=== PATIENT | female | born 1930 | race Caucasian/White ===

== ENCOUNTER → 2016-09-14 | Outpatient (CLI) | payer BC ==
[~2016-09-14] MED LIST: ASPI-435 PO; CHOL1000 PO; CHOL20009 PO; CYAN100020 PO; CYAN10005 PO; LPT40 PO; PANT1TAB48 PO; PRT/20 PO; SIMV40TA2 PO; TELM80TA6 PO; TEMA15CA4 PO
[2016-09-14 09:57] LABS: ALKALINE PHOSPHATASE 94 U/L (45-117); ALT/SGPT 18 U/L (12-78); AST/SGOT 11 U/L (15-37); BLOOD UREA NITROGEN 26 mg/dl (7-18); BUN/CREATININE RATIO 25.8 (10-20); CALCIUM 9.2 mg/dl (8.5-10.1); CARBON DIOXIDE 29 mmol/L (21-32); CHLORIDE 104 mmol/L (98-107); CHOLESTEROL 202 mg/dl (0-200); GLUCOSE 92 mg/dl (70-99); HDL CHOLESTEROL 50 mg/dl; LDL CHOLESTEROL CALCULATED 125 mg/dl; POTASSIUM 4.7 mmol/L (3.5-5.1); SODIUM 139 mmol/L (136-145); TRIGLYCERIDES 137 mg/dl (0-150); VERY LOW DENSITY LIPOPROT CALC 27 mg/dl
== END | disposition home or self-care (01) ==
LOC: C.LABFOXMH 09:04
PROVIDERS: ATTEND Internal Medicine
DX: I10 Essential (primary) hypertension (principal)

== ENCOUNTER → 2016-09-28 | Outpatient (CLI) | payer BC ==
[2016-09-28 10:01] LABS: HEMATOCRIT 31.6 % (37-47); MEAN CELL VOLUME 68.7 fL (80-100); MEAN CORPUSCULAR HEMOGLOBIN 20.2 pg (25-34); MEAN CORPUSCULAR HGB CONC 29.4 g/dl (32-36); MEAN PLATELET VOLUME 11.2 fL (7.4-10.4); PLATELET COUNT 236 K/uL (130-400); WHITE BLOOD COUNT 5.06 K/uL (4.8-10.8)
[2016-09-28 11:20] LABS: LYME DISEASE AB IGM NEG (NEG)
[2016-09-28 11:23] LABS: LYME DISEASE AB IGG NEG (NEG)
== END | disposition home or self-care (01) ==
LOC: C.LABFOXMH 08:55
PROVIDERS: ATTEND Internal Medicine
DX: R41.82 Altered mental status, unspecified (principal)

== ENCOUNTER → 2016-09-30 | Outpatient (CLI) | payer BC ==
--- NOTE | 2016-09-30 12:22 | DIAGNOSTIC IMAGING REPORT ---
MRI OF THE BRAIN WITHOUT CONTRAST CLINICAL HISTORY: MEMORY LOSS COMPARISON STUDY: None. FINDINGS: Sagittal T1, axial diffusion, proton density and T2 weighted axial, coronal FLAIR, and axial T1-weighted images were acquired. No intra or extra-axial mass lesions are visualized Axial diffusion-weighted images reveal no evidence of acute or subacute infarction. There is no evidence of ventricular dilatation. Proton density T2-weighted and FLAIR images reveal scattered foci of increased T2 signal within the white matter, likely on a small vessel basis. There are no abnormal flow voids. There are foci of increased T2 signal within the right mastoid likely inflammatory. IMPRESSION: 1. No acute intracranial findings 2. No evidence of acute or subacute infarction 3. No evidence of intracranial mass 4. Scattered foci of increased T2 signal in the white matter, likely on a small vessel basis, and a finding not unexpected for age Electronically signed by: Ted Duvall M.D. 09/30/2016 12:20 PM Dictated Date/Time: 09/30/2016 12:14 PM
== END | disposition home or self-care (01) ==
LOC: C.MRI 11:01
PROVIDERS: ATTEND Internal Medicine
DX: R41.82 Altered mental status, unspecified (principal); R41.3 Other amnesia; D64.9 Anemia, unspecified

== ENCOUNTER → 2016-09-30 | Outpatient (CLI) | payer BC ==
[2016-09-30 10:03] LABS: FERRITIN 5.1 ng/ml (8.0-388.0)
== END | disposition home or self-care (01) ==
LOC: C.LABFOXMH 09:12
PROVIDERS: ATTEND Internal Medicine
DX: D64.9 Anemia, unspecified (principal)

== ENCOUNTER → 2016-11-09 | Day surgery (SDC) | payer BC ==
[2016-10-27 13:30] VITALS: Ht 165.1 cm; Wt 69.1 kg
[~2016-11-09] VITALS: Ht 165.1 cm; Wt 69.1 kg
[~2016-11-09] MED LIST changes: +LIDOCAINE HCL 2% 2 ML VIAL (20MG/ML) ONE; +PROPOFOL IV EMULSION 10 MG/ML 20 ML VIAL IV ONE; -SIMV40TA2 PO; +SODIUM CHLORIDE 0.9% 500ML 500 ML IV ONE
--- NOTE | 2016-11-09 10:08 | Endo History and Physical ---
History & Physical Date of Service: Nov 09, 2016. Chief Complaint: Screening for colon CA Referring Physician: Steve History of Present Illness 86 yo CF who presents for screening colonoscopy. Past Surgical History Hx Cardiac Surgery: No Hx Internal Defibrillator: No Hx Pacemaker: No Hx Abdominal Surgery: No Hx of Implantable Prosthesis: No Hx Cancer Surgery: No Hx Thoracic Surgery: No Hx Orthopedic: No Hx Urinary Tract Surgery: No Family History None Social History Smoking Status: Former Smoker Hx Substance Use: No Hx Alcohol Use: Yes (OCCASIONAL) Allergies Coded Allergies: NO KNOWN DRUG ALLERGIES (Verified Allergy, Unknown, ., 10/27/16) Nickel (Verified Allergy, Unknown, RASH, 10/27/16) Zinc (Verified Allergy, Unknown, RASH, 10/27/16) Current Medications Reported Home Medications Medications Dose Route/Sig Max Daily Dose Days Date Category Vitamin B-12 (Cyanocobalamin) 1,000 Mcg Tab 1,000 Mcg PO DAILY 10/27/16 Reported Vitamin D (Cholecalciferol) 2,000 Unit Tab 1 Tab PO DAILY 10/27/16 Reported Restoril (Temazepam) 15 Mg Cap 15 Mg PO HS 04/04/11 Reported Protonix (Pantoprazole Sodium) 20 Mg Tab 20 Mg PO QAM 10/01/06 Reported Micardis Hct 80MG/12.5MG (Telmisartan/Hydrochlorothiazide) Tab 1 Tab PO DAILY 10/01/06 Reported Vital Signs Weight (Kilograms): 69.09 Height (Feet): 5 Height (Inches): 5 Date Time Temp Pulse Resp B/P (MAP) Pulse Ox O2 Delivery O2 Flow Rate FiO2 11/09/16 10:01 36.3 92 20 161/70 94 Room Air Physical Exam General Appearance: WD/WN, no apparent distress Respiratory/Chest: Auscultation: breath sounds normal Cardiovascular: Heart Auscultation: RRR Abdomen: Bowel Sounds: normal Inspection & Palpation: soft, non-distended, no tenderness, guarding & rebound Assessment and Plan Assessment: 86 yo CF who presents for screening colonoscopy. Plan: Proceed with colonoscopy.
--- NOTE | 2016-11-09 10:48 | GI REPORT ---
Procedure Date: 11/09/2016 10:12 AM Procedure: Colonoscopy Indications: High risk colon cancer surveillance: Personal history of colonic polyps Medicines: Monitored Anesthesia Care Complications: No immediate complications. Estimated Blood Loss: Estimated blood loss: none. Procedure: Pre-Anesthesia Assessment: - Prior to the procedure, a History and Physical was performed, and patient medications and allergies were reviewed. The patient's tolerance of previous anesthesia was also reviewed. The risks and benefits of the procedure and the sedation options and risks were discussed with the patient. All questions were answered, and informed consent was obtained. Prior Anticoagulants: The patient has taken no previous anticoagulant or antiplatelet agents. ASA Grade Assessment: III - A patient with severe systemic disease. After reviewing the risks and benefits, the patient was deemed in satisfactory condition to undergo the procedure. After I obtained informed consent, the scope was passed under direct vision. Throughout the procedure, the patient's blood pressure, pulse, and oxygen saturations were monitored continuously. The scope was introduced through the anus and advanced to the cecum, identified by appendiceal orifice and ileocecal valve. The colonoscopy was performed without difficulty. The patient tolerated the procedure well. The quality of the bowel preparation was good. The terminal ileum, ileocecal valve, appendiceal orifice, and rectum were photographed. Findings: A 3 mm polyp was found in the ascending colon. The polyp was sessile. The polyp was removed with a cold biopsy forceps. Resection and retrieval were complete. Scattered small and large-mouthed diverticula were found in the entire colon. Non-bleeding internal hemorrhoids were found during retroflexion. The hemorrhoids were small. Impression: - One 3 mm polyp in the ascending colon, removed with a cold biopsy forceps. Resected and retrieved. - Diverticulosis in the entire examined colon. - Non-bleeding internal hemorrhoids. Recommendation: - Resume previous diet. - Continue present medications. - Repeat colonoscopy for surveillance based on pathology results. - Return to primary care physician as previously scheduled. Shahram Ochoa, 11/09/2016 10:47:36 AM This report has been signed electronically. Note Initiated On: 11/09/2016 10:12 AM I attest to the content of the Intraoperative Record and orders documented therein, exceptions below
--- NOTE | 2016-11-09 10:50 | Discharge Instructions ---
Endoscopy Patient Instructions Date / Procedure(s) Performed Nov 09, 2016. Colonoscopy Allergy Information Coded Allergies: NO KNOWN DRUG ALLERGIES (Verified Allergy, Unknown, ., 10/27/16) Nickel (Verified Allergy, Unknown, RASH, 10/27/16) Zinc (Verified Allergy, Unknown, RASH, 10/27/16) Discharge Date / Findings Nov 09, 2016. Colon polyp Diverticulosis Internal hemorrhoids Medication Instructions OK to resume all medications today as prescribed Medications Dose Route/Sig Max Daily Dose Days Date Category Vitamin B-12 (Cyanocobalamin) 1,000 Mcg Tab 1,000 Mcg PO DAILY 10/27/16 Reported Vitamin D (Cholecalciferol) 2,000 Unit Tab 1 Tab PO DAILY 10/27/16 Reported Restoril (Temazepam) 15 Mg Cap 15 Mg PO HS 04/04/11 Reported Protonix (Pantoprazole Sodium) 20 Mg Tab 20 Mg PO QAM 10/01/06 Reported Micardis Hct 80MG/12.5MG (Telmisartan/Hydrochlorothiazide) Tab 1 Tab PO DAILY 10/01/06 Reported Provider Instructions Activity Restrictions - No exercising or heavy lifting for 24 hours. - Do not drink alcohol the day of the procedure. - Do not drive a car or operate machinery until the day after the procedure. - Do not make any important decisions or sign important papers in 24 hours after the procedure. Following Day: - Return to full activity which may include returning to work/school. Diet Start your diet with liquids and light foods (jello, soup, juice, toast). Then eat your usual diet if not nauseated. Treatment For Common After Affects For mild abdominal pain, bloating, or excessive gas: - Rest - Eat lightly - Lie on right side Follow-Up Information Follow-up with Steve as scheduled Anesthesia Information What You Should Know You have had a procedure that required some medicine to reduce anxiety and discomfort. This treatment is called moderate sedation. After receiving the treatment, you may be sleepy, but you will be able to breathe on your own. The effects of the treatment may last for several hours. Follow these instructions along with Activity/Diet recommendations noted above: * Do NOT do anything where dizziness or clumsiness would be dangerous. * Rest quietly at home today, then you can be up and about tomorrow. * Have a responsible person stay with you the rest of today. * You may have had an I.V. today. If so, you may take the dressing off later today. Recommendations Call your doctor if: * Trouble breathing * Continuous vomiting for more than 24 hours * Temperature above 101 degrees * Severe abdominal pain or bloating * Pain not relieved by pain medicine ordered * There is increased drainage or redness from any incision * A large amount of rectal bleeding greater than 2-3 tablespoons. (If you had a polyp/s removed or have hemorrhoids, a small amount of blood - from the rectum is to be expected.) * You have any unanswered questions or concerns. IN THE EVENT OF A SERIOUS EMERGENCY, GO TO THE NEAREST EMERGENCY ROOM Your discharge instructions were prepared by provider Shahram Ochoa. Patient Instructions Signature Page Samantha Colbert Patient (or Guardian) Signature/Date: I have read and understand the instructions given to me by my caregivers. Caregiver/RN/Doctor Signature/Date: The above-named patient and/or guardian has received patient instructions on this date. + Original Patient Signature Page (only) stays with chart. Please make copy for patient.
--- NOTE | 2016-11-09 11:01 | Anesthesiology Progress Note ---
Anesthesia Post Op Note Date & Time Nov 09, 2016 at 11:01 Vital Signs Pain Intensity: 0 Vital Signs Past 12 Hours Date Time Temp Pulse Resp B/P (MAP) Pulse Ox O2 Delivery O2 Flow Rate FiO2 11/09/16 10:57 80 20 111/52 95 Room Air 11/09/16 10:51 75 20 94/48 94 Room Air 11/09/16 10:42 92 20 90/39 94 Room Air 11/09/16 10:01 36.3 92 20 161/70 94 Room Air Notes Mental Status: alert / awake / arousable, participated in evaluation Pt Amnestic to Procedure: Yes Nausea / Vomiting: adequately controlled Pain: adequately controlled Airway Patency, RR, SpO2: stable & adequate BP & HR: stable & adequate Hydration State: stable & adequate Anesthetic Complications: no major complications apparent
[2016-11-09 11:21] VITALS: BP 130/67; PULSE 79; O2SAT 95
== END | disposition home or self-care (01) ==
LOC: C.GI 09:33
PROVIDERS: ATTEND Internal Medicine
DX: Z12.11 Encounter for screening for malignant neoplasm of colon (principal); Z86.010 Personal history of colon polyps; D12.2 Benign neoplasm of ascending colon; K57.32 Diverticulitis of large intestine without perforation or abscess without bleeding; K64.8 Other hemorrhoids; Z87.891 Personal history of nicotine dependence; G47.33 Obstructive sleep apnea (adult) (pediatric); E78.5 Hyperlipidemia, unspecified; K21.9 Gastro-esophageal reflux disease without esophagitis

== ENCOUNTER → 2016-12-09 | Outpatient (CLI) | payer BC ==
[~2016-12-09] MED LIST changes: -LIDOCAINE HCL 2% 2 ML VIAL (20MG/ML) ONE; -PROPOFOL IV EMULSION 10 MG/ML 20 ML VIAL IV ONE; -SODIUM CHLORIDE 0.9% 500ML 500 ML IV ONE; +TELM80TA4 PO; -TELM80TA6 PO
[2016-12-09 09:12] LABS: HEMATOCRIT 40.8 % (37-47); MEAN CELL VOLUME 77.7 fL (80-100); MEAN CORPUSCULAR HEMOGLOBIN 24.2 pg (25-34); MEAN CORPUSCULAR HGB CONC 31.1 g/dl (32-36); PLATELET COUNT 182 K/uL (130-400); RED BLOOD COUNT 5.25 M/uL (4.2-5.4); WHITE BLOOD COUNT 4.94 K/uL (4.8-10.8)
== END | disposition home or self-care (01) ==
LOC: C.LABFOXMH 08:54
PROVIDERS: ATTEND Internal Medicine
DX: D64.9 Anemia, unspecified (principal)

== ENCOUNTER → 2016-12-13 | Outpatient (CLI) | payer BC | END | disposition home or self-care (01) | LOC: C.LABFOXMH 14:09 | PROVIDERS: ATTEND Nurse Practitioner Family | DX: R53.83 Other fatigue (principal) ==

== ENCOUNTER 2016-12-14 17:08 | Inpatient (IN) | payer BC, OTHER ==
[~2016-12-14] VITALS: Ht 154.9 cm; Wt 68.4 kg
[~2016-12-14 17:08] MED LIST changes: -ASPI-435 PO; -CHOL1000 PO; -CYAN100020 PO; -LPT40 PO; -PANT1TAB48 PO
--- NOTE | 2016-12-14 18:30 | DIAGNOSTIC IMAGING REPORT ---
CHEST ONE VIEW PORTABLE CLINICAL HISTORY: 86 years-old Female presenting with confusion. TECHNIQUE: Portable upright AP view of the chest was obtained. COMPARISON: 02/18/2015. FINDINGS: The patient is [place] rotated. Enlarged cardiac silhouette. Atherosclerosis of the aortic arch. A hiatal hernia is likely present. Lungs and pleural spaces clear. Osseous structures and upper abdomen normal. IMPRESSION: 1. No acute cardiopulmonary disease. 2. Cardiomegaly. Electronically signed by: Stefan Gee M.D. 12/14/2016 6:28 PM Dictated Date/Time: 12/14/2016 6:26 PM
[2016-12-14 19:09] LABS: BASO % 0.5 %; BASO ABS # 0.03 K/uL (0-0.2); HEMATOCRIT 41.3 % (37-47); IG% 0.2 %; LYMPH % 26.6 %; MEAN CELL VOLUME 75.6 fL (80-100); MEAN CORPUSCULAR HEMOGLOBIN 24.7 pg (25-34); MEAN CORPUSCULAR HGB CONC 32.7 g/dl (32-36); MONO % 6.9 %; NEUT % 62.8 %; PLATELET COUNT 196 K/uL (130-400); RED BLOOD COUNT 5.46 M/uL (4.2-5.4); WHITE BLOOD COUNT 5.64 K/uL (4.8-10.8)
--- NOTE | 2016-12-14 19:19 | DIAGNOSTIC IMAGING REPORT ---
LEFT LOWER EXTREMITY VENOUS DOPPLER CLINICAL HISTORY: Left lower extremity pain and swelling. COMPARISON STUDY: No previous studies for comparison. TECHNIQUE: Sonography of the deep venous system of the left lower extremity was performed. Compression and augmentation were evaluated. FINDINGS: The left common femoral, superficial femoral and popliteal veins were compressible. Augmentation was normal. Flow was shown within the deep calf vessels. IMPRESSION: No evidence of deep venous thrombus within the left lower extremity. Electronically signed by: Melchor Hearn M.D. 12/14/2016 7:17 PM Dictated Date/Time: 12/14/2016 7:17 PM
--- NOTE | 2016-12-14 19:31 | DIAGNOSTIC IMAGING REPORT ---
CT OF THE HEAD WITHOUT CONTRAST CLINICAL HISTORY: Confusion. COMPARISON STUDY: MRI of the brain September 30, 2016. CT DOSE: 537.48 mGy.cm TECHNIQUE: Helical axial images of the head were obtained without IV contrast. Automated exposure control was utilized for the study. FINDINGS: No acute intracranial hemorrhage, midline shift or mass effect is present. There is a 2.8 x 2.6 cm hypodensity within the right frontotemporal region shown best on axial image . There is probable loss of bang-white differentiation. There is no mass effect. Ventricular system is unremarkable for age. Mild ventricular dilatation is likely due to atrophy. The basilar cisterns are patent. There are no extra axial collections. There are no significant calvarial abnormalities. IMPRESSION: 1. No acute intracranial hemorrhage or mass effect. 2. 2.8 x 2.6 cm right frontotemporal hypodensity with loss of bang-white differentiation which suggests an acute to subacute infarct. If the clinical picture is not suggestive of infarct, an MRI could be obtained to exclude the much less likely possibility of an underlying mass. Electronically signed by: Melchor Hearn M.D. 12/14/2016 7:30 PM Dictated Date/Time: 12/14/2016 7:18 PM
[2016-12-14 19:34] LABS: BUN/CREATININE RATIO 25.5 (10-20); CALCIUM 9.2 mg/dl (8.5-10.1); CREATININE 0.93 mg/dl (0.60-1.20); MAGNESIUM 1.8 mg/dl (1.8-2.4)
[2016-12-14 19:40] LABS: ALB/GLOB RATIO 1.2 (0.9-2); THYROID STIMULATING HORMONE 0.692 uIu/ml (0.300-4.500)
[2016-12-14 19:44] LABS: COMPLETE YES
[2016-12-14] MEDS ORDERED: ASPIRIN/ALUM/MAGNES/CAL CARB 325 MG TAB PO STA (19:46)
[2016-12-14 19:59] LABS: POTASSIUM 4.4 mmol/L (3.5-5.1)
--- NOTE | 2016-12-14 20:07 | EMERGENCY ROOM VISIT NOTE ---
History Report prepared by Wilman: Juan Carlos Levin Under the Supervision of: Dr. Greta Lr D.O. First contact with patient: 17:34 Chief Complaint: SWELLING TO EXTREMITY Stated Complaint: LLE SWOLLEN, WARM, RED AND MENTAL STATUS History of Present Illness The patient is an 86 year old female who presents to the Emergency Room with complaints of constant, left leg pain beginning prior to arrival. The patient complains of a cough and cold-like symptoms. She denies fevers, chills, nausea, diarrhea, urinary symptoms, vomiting, chest pain, and shortness of breath. After reviewing the halfway records, the patient had edema and erythema to the lower left extremity and an altered mental status. The patient's vitals were normal except she was mildly tachycardic. The notes report that patient is DNR/DNI and has advance directive paperwork. They note the patient had labs ordered and urine cultures two days ago, and there were no results noted. The notes report the urine quick dip was positive, but after reviewing her medication list, she was not started on antibiotics yet. They state the patient has a history of poor short term memory. After reviewing the EMR, on 12/13 the patient's urine culture showed multiple organisms were present due to possible contamination. Source of History: patient, halfway notes Onset: prior to arrival Position: leg (left) Timing: constant Associated Symptoms: + cough, No fevers, No chills, No chest pain, No SOB, No nausea, No vomiting, No diarrhea, No urinary symptoms Review of Systems See HPI for pertinent positives & negatives. A total of 10 systems reviewed and were otherwise negative. Past Medical & Surgical Medical Problems: (1) Stroke-like symptoms Family History Patient reports no known family medical history. Social History Smoking Status: Never Smoker Alcohol Use: none Marital Status: Occupation Status: retired Current/Historical Medications Scheduled Aspirin (Aspirin 81), 81 MG PO DAILY Cholecalciferol (Vitamin D3), 2 TAB PO DAILY Cyanocobalamin (Vitamin B12), 1,000 MCG PO DAILY Pantoprazole (Protonix), 1 TAB PO DAILY Telmisartan/Hctz (Micardis Hct 80MG/12.5MG), 1 TAB PO DAILY Allergies Coded Allergies: NO KNOWN DRUG ALLERGIES (Verified Allergy, Unknown, ., 12/14/16) Nickel (Verified Allergy, Unknown, RASH, 12/14/16) Zinc (Verified Allergy, Unknown, RASH, 12/14/16) Physical Exam Vital Signs Date Time Temp Pulse Resp B/P (MAP) Pulse Ox O2 Delivery O2 Flow Rate FiO2 12/14/16 17:12 36.7 104 18 122/73 96 Room Air Physical Exam GENERAL: alert, well appearing, well nourished, no distress, non-toxic EYE EXAM: normal conjunctiva, PERRL and EOM's grossly intact OROPHARYNX: no exudate, no erythema, lips, buccal mucosa, and tongue normal and mucous membranes are moist NECK: supple, no nuchal rigidity, no adenopathy, non-tender LUNGS: Clear to auscultation. Normal chest wall mechanics HEART: no murmurs, S1 normal and S2 normal ABDOMEN: abdomen soft, non-tender, normo-active bowel sounds, no masses, no rebound or guarding. BACK: Back is symmetrical on inspection and there is no deformity, no midline tenderness, no CVA tenderness. SKIN: no rashes and no bruising UPPER EXTREMITIES: upper extremities are grossly normal. LOWER EXTREMITIES: No pitting edema. Small abrasion to the posterior aspect of left heal, normal pulses and sensory, complains of mild calf tenderness, no joint effusion, no deformity. NEURO EXAM: Normal sensorium, cranial nerves II-XII grossly intact, normal speech, no gross weakness of arms, no gross weakness of legs. Oriented to year , not month or place. Medical Decision & Procedures ER Provider Diagnostic Interpretation: Radiology results have been interpreted by the radiologist and reviewed by me. LEFT LOWER EXTREMITY VENOUS DOPPLER CLINICAL HISTORY: Left lower extremity pain and swelling. COMPARISON STUDY: No previous studies for comparison. TECHNIQUE: Sonography of the deep venous system of the left lower extremity was performed. Compression and augmentation were evaluated. FINDINGS: The left common femoral, superficial femoral and popliteal veins were compressible. Augmentation was normal. Flow was shown within the deep calf vessels. IMPRESSION: No evidence of deep venous thrombus within the left lower extremity. Electronically signed by: Melchor Hearn M.D. 12/14/2016 7:17 PM Dictated Date/Time: 12/14/2016 7:[address] OF THE HEAD WITHOUT CONTRAST CLINICAL HISTORY: Confusion. COMPARISON STUDY: MRI of the brain September 30, 2016. CT DOSE: 537.48 mGy.cm TECHNIQUE: Helical axial images of the head were obtained without IV contrast. Automated exposure control was utilized for the study. FINDINGS: No acute intracranial hemorrhage, midline shift or mass effect is present. There is a 2.8 x 2.6 cm hypodensity within the right frontotemporal region shown best on axial image of . There is probable loss of bang-white differentiation. There is no mass effect. Ventricular system is unremarkable for age. Mild ventricular dilatation is likely due to atrophy. The basilar cisterns are patent. There are no extra axial collections. There are no significant calvarial abnormalities. IMPRESSION: 1. No acute intracranial hemorrhage or mass effect. 2. 2.8 x 2.6 cm right frontotemporal hypodensity with loss of bang-white differentiation which suggests an acute to subacute infarct. If the clinical picture is not suggestive of infarct, an MRI could be obtained to exclude the much less likely possibility of an underlying mass. Electronically signed by: Melchor Hearn M.D. 12/14/2016 7:30 PM Dictated Date/Time: 12/14/2016 7:18 PM CHEST ONE VIEW PORTABLE CLINICAL HISTORY: 86 years-old Female presenting with confusion. TECHNIQUE: Portable upright AP view of the chest was obtained. COMPARISON: 02/18/2015. FINDINGS: The patient is [place] rotated. Enlarged cardiac silhouette. Atherosclerosis of the aortic arch. A hiatal hernia is likely present. Lungs and pleural spaces clear. Osseous structures and upper abdomen normal. IMPRESSION: 1. No acute cardiopulmonary disease. 2. Cardiomegaly. Electronically signed by: Stefan Gee M.D. 12/14/2016 6:28 PM Dictated Date/Time: 12/14/2016 6:26 PM Laboratory Results Test 12/14/16 18:23 12/14/16 18:48 12/14/16 21:05 Lactic Acid Level 1.0 mmol/L (0.4-2.0) Red Blood Cell Morphology Unremarkable Total Bilirubin 0.3 mg/dl (0.2-1) Aspartate Amino Transf (AST/SGOT) 17 U/L (15-37) Alanine Aminotransferase (ALT/SGPT) 16 U/L (12-78) Alkaline Phosphatase 91 U/L (45-117) Troponin I 0.019 ng/ml (0-0.045) Pro-B-Type Natriuretic Peptide 3553 pg/ml (0-1800) Total Protein 6.5 gm/dl (6.4-8.2) Albumin 3.5 gm/dl (3.4-5.0) Globulin 3.0 gm/dl (2.5-4.0) Albumin/Globulin Ratio 1.2 (0.9-2) Lipase 158 U/L (73-393) Thyroid Stimulating Hormone (TSH) 0.692 uIu/ml (0.300-4.500) Urine Color YELLOW Urine Appearance CLEAR (CLEAR) Urine pH 6.5 (4.5-7.5) Urine Specific [place] 1.019 (1.000-1.030) Urine Protein NEG (NEG) Urine Glucose (UA) NEG (NEG) Urine Ketones NEG (NEG) Urine Occult Blood NEG (NEG) Urine Nitrite NEG (NEG) Urine Bilirubin NEG (NEG) Urine Urobilinogen NEG (NEG) Urine Leukocyte Esterase NEG (NEG) Laboratory results per my review. Medications Administered Medications (Trade) Dose Ordered Sig/Ekaterina Route Start Time Stop Time Status Last Admin Dose Admin Aspirin/Aluminum/ Magnesium/Ca Carb (Ascriptin Tab) 325 mg NOW STAT PO 12/14/16 19:46 12/14/16 19:48 DC 12/14/16 20:03 325 MG ECG Indication: altered mental status Rate (beats per minute): 99 Rhythm: sinus rhythm Findings: LBBB, other (Prolonged QTc, normal axis) Comparison ECG Date: 01/30/2001 Change: LBBB is new from 16 years ago. ED Course 1737: The patient was evaluated in room A03. A complete history and physical exam was performed. 1945: Ordered Ascriptin Tab 325 mg PO 1947: Upon reevaluation, the patient is resting. I discussed the findings and the treatment plan with the patient. She and her family express agreement and understanding. 2001: I spoke with Dr. Campbell of the [facility] Hospitalist Service. She will be evaluated for further management. Medical Decision Differential diagnoses includes but is not limited to toxic, metabolic, infectious, traumatic, cardiac, neurologic, hematologic, psychiatric and inflammatory etiologies. Medication Reconciliation: I attest that I have personally reviewed the patient' s current medication list. Blood pressure screening: Patient was found to have a slightly elevated blood pressure due to circumstances. I do not believe that the patient requires hypertension monitoring. Patient well-appearing here despite altered mentation and complaints of an irregular extremity pain. She found to have acute CVA on neuro imaging. Labs otherwise reassuring. No evidence of infectious etiology, doubt bacteremia/ sepsis. Given patient's advanced age and risk factors more likely related to her acute CVA. Patient family made aware of all results were agreeable with plan for admission for additional evaluation and treatment. Doubt cardiac etiology, vascular etiology, no GI or complaints. Consults Time Called: 1958 Consulting Physician: Dr. Campbell, [facility] Hospitalist Returned Call: [address] Campbell of the [facility] Hospitalist Service. She will be evaluated for further management. Impression Primary Impression: CVA (cerebral vascular accident) Additional Impressions: Altered mental state Elevated brain natriuretic peptide (BNP) level Scribe Attestation The scribe's documentation has been prepared under my direction and personally reviewed by me in its entirety. I confirm that the note above accurately reflects all work, treatment, procedures, and medical decision making performed by me. Departure Information Dispostion Being Evaluated By Hospitalist Referrals Desmond Wilson M.D. (PCP) Patient Instructions My [facility] Problem Qualifiers Primary Impression: CVA (cerebral vascular accident) CVA mechanism: unspecified Qualified Codes: I63.9 - Cerebral infarction, unspecified Additional Impressions: Altered mental state Altered mental status type: disorientation Qualified Codes: R41.0 - Disorientation, unspecified
[2016-12-14 21:20] LABS: URINE APPEARANCE CLEAR (CLEAR); URINE BILIRUBIN NEG (NEG); URINE COLOR YELLOW; URINE NITRITE NEG (NEG); URINE PH 6.5 (4.5-7.5); URINE SPECIFIC GRAVITY 1.019 (1.000-1.030); UROBILINOGEN NEG (NEG)
[2016-12-14 21:31] LABS: MANUAL MICROSCOPIC REQUIRED? NO; REVIEW REQ? NO
--- NOTE | 2016-12-14 21:40 | History and Physical ---
History & Physical Date & Time of Service: Dec 14, 2016 at 21:40 Chief Complaint: Lle Swollen, Warm, Red And Mental Status Primary Care Physician: Desmond Wilson M.D. History of Present Illness Source: patient 86-year-old female with past medical history of hypertension, resident of [facility] presented to the ER with complaints of constant left leg pain. Per long term records, the patient had confusion and some speech difficulties. The patient also had some edema and erythema of the left lower extremity. The patient has dementia at baseline and is only oriented to self. She denies any chest pain, shortness of breath, palpitations. Denies any numbness tingling or weakness Family History Patient reports no known family medical history. Social History Smoking Status: Never Smoker Marital Status: Occupational Status: retired Multi-Drug Resistant Organisms History of MDRO: No Allergies Coded Allergies: NO KNOWN DRUG ALLERGIES (Verified Allergy, Unknown, ., 12/14/16) Nickel (Verified Allergy, Unknown, RASH, 12/14/16) Zinc (Verified Allergy, Unknown, RASH, 12/14/16) Home Medications Scheduled Aspirin (Aspirin 81), 81 MG PO DAILY Atorvastatin (Atorvastatin Calcium), 40 MG PO QAM Cholecalciferol (Vitamin D3), 2 TAB PO DAILY Cyanocobalamin (Vitamin B12), 1,000 MCG PO DAILY Pantoprazole (Protonix), 1 TAB PO DAILY Telmisartan/Hctz (Micardis Hct 80MG/12.5MG), 1 TAB PO DAILY Review of Systems Constitutional: No fever, No chills Eyes: No worsening of vision ENT: No hearing loss Respiratory: No cough, No sputum Cardiovascular: No chest pain Abdomen: No pain, No nausea Musculoskeletal: + problem reported (left leg pain) Genitourinary - Female: No dysuria Neurologic: No memory loss, No paralysis Psychiatric: No depression symptoms Endocrine: No fatigue Hematologic / Lymphatic: No abnormal bleeding/bruising Integumentary: No rash Physical Exam Vital Signs Date Time Temp Pulse Resp B/P (MAP) Pulse Ox O2 Delivery O2 Flow Rate FiO2 12/14/16 17:12 36.7 104 18 122/73 96 Room Air General Appearance: WD/WN, no apparent distress Head: normocephalic ENT: normal ENT inspection, hearing grossly normal Neck: supple Respiratory/Chest: chest non-tender, lungs clear, normal breath sounds, no respiratory distress, no accessory muscle use Cardiovascular: regular rate, rhythm Abdomen/GI: normal bowel sounds, non tender, soft Extremities/Musculoskelatal: normal inspection, no calf tenderness Neurologic/Psych: normal mood/affect, + pertinent finding (oriented to self only) Skin: normal color, warm/dry, no rash Diagnostics Laboratory Results Results Past 24 Hours Test 12/14/16 18:23 12/14/16 18:48 12/14/16 21:05 12/14/16 21:31 Range/Units Lactic Acid Level 1.0 0.4-2.0 mmol/L White Blood Count 5.64 4.8-10.8 K/uL Red Blood Count 5.46 4.2-5.4 M/uL Hemoglobin 13.5 12.0-16.0 g/dL Hematocrit 41.3 37-47 % Mean Corpuscular Volume 75.6 80-100 fL Mean Corpuscular Hemoglobin 24.7 25-34 pg Mean Corpuscular Hemoglobin Concent 32.7 32-36 g/dl Platelet Count 196 130-400 K/uL Neutrophils (%) (Auto) 62.8 % Lymphocytes (%) (Auto) 26.6 % Monocytes (%) (Auto) 6.9 % Eosinophils (%) (Auto) 3.0 % Basophils (%) (Auto) 0.5 % Neutrophils # (Auto) 3.54 1.4-6.5 K/uL Lymphocytes # (Auto) 1.50 1.2-3.4 K/uL Monocytes # (Auto) 0.39 0.11-0.59 K/uL Eosinophils # (Auto) 0.17 0-0.5 K/uL Basophils # (Auto) 0.03 0-0.2 K/uL RDW Standard Deviation 55.1 36.4-46.3 fL RDW Coefficient of Variation 20.5 11.5-14.5 % Immature Granulocyte % (Auto) 0.2 % Immature Granulocyte # (Auto) 0.01 0.00-0.02 K/uL Red Blood Cell Morphology Unremarkable Sodium Level 138 136-145 mmol/L Potassium Level 4.4 3.5-5.1 mmol/L Chloride Level 102 98-107 mmol/L Carbon Dioxide Level 25 21-32 mmol/L Anion Gap 11.0 3-11 mmol/L Blood Urea Nitrogen 24 7-18 mg/dl Creatinine 0.93 0.60-1.20 mg/dl Est Creatinine Clear Calc Drug Dose 40.3 ml/min Estimated GFR () 65.4 Estimated GFR (Non- 56.4 BUN/Creatinine Ratio 25.5 10-20 Random Glucose 91 70-99 mg/dl Calcium Level 9.2 8.5-10.1 mg/dl Magnesium Level 1.8 1.8-2.4 mg/dl Total Bilirubin 0.3 0.2-1 mg/dl Aspartate Amino Transf (AST/SGOT) 17 15-37 U/L Alanine Aminotransferase (ALT/SGPT) 16 12-78 U/L Alkaline Phosphatase 91 45-117 U/L Troponin I 0.019 0-0.045 ng/ml Pro-B-Type Natriuretic Peptide 3553 0-1800 pg/ml Total Protein 6.5 6.4-8.2 gm/dl Albumin 3.5 3.4-5.0 gm/dl Globulin 3.0 2.5-4.0 gm/dl Albumin/Globulin Ratio 1.2 0.9-2 Lipase 158 73-393 U/L Thyroid Stimulating Hormone (TSH) 0.692 0.300-4.500 uIu/ml Urine Color YELLOW Urine Appearance CLEAR CLEAR Urine pH 6.5 4.5-7.5 Urine Specific [place] 1.019 1.000-1.030 Urine Protein NEG NEG Urine Glucose (UA) NEG NEG Urine Ketones NEG NEG Urine Occult Blood NEG NEG Urine Nitrite NEG NEG Urine Bilirubin NEG NEG Urine Urobilinogen NEG NEG Urine Leukocyte Esterase NEG NEG Microbiology Results 12/14/16 Urine Culture, Received Pending Diagnostic Radiology [~ rep ct add3]] LEFT LOWER EXTREMITY VENOUS DOPPLER CLINICAL HISTORY: Left lower extremity pain and swelling. COMPARISON STUDY: No previous studies for comparison. TECHNIQUE: Sonography of the deep venous system of the left lower extremity was performed. Compression and augmentation were evaluated. FINDINGS: The left common femoral, superficial femoral and popliteal veins were compressible. Augmentation was normal. Flow was shown within the deep calf vessels. IMPRESSION: No evidence of deep venous thrombus within the left lower extremity. Electronically signed by: Melchor Hearn M.D. 12/14/2016 7:17 PM Dictated Date/Time: 12/14/2016 7:[address] OF THE HEAD WITHOUT CONTRAST CLINICAL HISTORY: Confusion. COMPARISON STUDY: MRI of the brain September 30, 2016. CT DOSE: 537.48 mGy.cm TECHNIQUE: Helical axial images of the head were obtained without IV contrast. Automated exposure control was utilized for the study. FINDINGS: No acute intracranial hemorrhage, midline shift or mass effect is present. There is a 2.8 x 2.6 cm hypodensity within the right frontotemporal region shown best on axial image . There is probable loss of bang-white differentiation. There is no mass effect. Ventricular system is unremarkable for age. Mild ventricular dilatation is likely due to atrophy. The basilar cisterns are patent. There are no extra axial collections. There are no significant calvarial abnormalities. IMPRESSION: 1. No acute intracranial hemorrhage or mass effect. 2. 2.8 x 2.6 cm right frontotemporal hypodensity with loss of bang-white differentiation which suggests an acute to subacute infarct. If the clinical picture is not suggestive of infarct, an MRI could be obtained to exclude the much less likely possibility of an underlying mass. Electronically signed by: Melchor Hearn M.D. 12/14/2016 7:30 PM Dictated Date/Time: 12/14/2016 7:18 PM CHEST ONE VIEW PORTABLE CLINICAL HISTORY: 86 years-old Female presenting with confusion. TECHNIQUE: Portable upright AP view of the chest was obtained. COMPARISON: 02/18/2015. FINDINGS: The patient is [place] rotated. Enlarged cardiac silhouette. Atherosclerosis of the aortic arch. A hiatal hernia is likely present. Lungs and pleural spaces clear. Osseous structures and upper abdomen normal. IMPRESSION: 1. No acute cardiopulmonary disease. 2. Cardiomegaly. Electronically signed by: Stefan Gee M.D. 12/14/2016 6:28 PM Dictated Date/Time: 12/14/2016 6:26 PM EKG Normal sinus rhythm Left bundle branch block Abnormal ECG When compared with ECG of 30-JAN-2001 15:05, Left bundle branch block is now Present Confirmed by JERI PERDOMO ([id number]) on 12/14/2016 10:44:26 PM Impression Assessment and Plan 86-year-old female with past medical history of hypertension, resident of [facility] presented to the ER with complaints of constant left leg pain. Per long term records, the patient had confusion and some speech difficulties. Stroke: - Head CT:1. No acute intracranial hemorrhage or mass effect. 2. 2.8 x 2.6 cm right frontotemporal hypodensity with loss of bang-white differentiation which suggests an acute to subacute infarct. If the clinical picture is not suggestive of infarct, an MRI could be obtained to exclude the much less likely possibility of an underlying mass. - MRI brain, MRA head, MRA neck ordered - Aspirin, statin started - Neurology consult - Hemoglobin A1c and lipid panel pending Left lower extremity pain: - Dopplers negative for DVT Hypertension: - Continue telmisartan/Hydrochlorothiazide GERD: - Continue pantoprazole DVT prophylaxis: - Heparin - SCDs Disposition: Admitted to telemetry Attending Addendum: I physically seen and examined this patient, have supervised the medical residents activities, and agree with the H&P as noted above with the following exceptions: NONE The patient is awake, well-developed and adequately nourished, alert and oriented 1 , normocephalic and atraumatic, lying in bed and in no acute distress. HEENT--PERRL, EOMI, mucous membranes and oropharynx normal. Neck--supple, no JVD or bruits, thyroid normal, trachea midline, no adenopathy. Heart--normal S1 and S2, no extra beats, no murmurs, rubs or gallops. Lungs--clear bilaterally with good air movement, no respiratory distress, no accessory muscle use. Abdomen--normal bowel sounds and soft, nontender and nondistended, no hernias or masses, no organomegaly. Extremities--no cyanosis, clubbing or edema. There are good distal pulses b/l. Dermatologic--normal skin turgor, normal color, warm and dry, no abnormal lymph nodes, no rash. Neurologic--cranial nerves II through XII grossly intact. Rheumatologic--normal range of motion, nontender, muscles and joints. Psychiatric--normal affect but confused. Assessment and Plan: 1. 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 We'll activate the CVA without TPA protocol: Order MRI of brain combo, MRA of head without contrast, MRA neck combo. Consult PT/OT/social services specialist/speech therapy. Check a fasting lipid profile, hemoglobin A1c Start aspirin and statin Neurology consult. VTE Prophylaxis VTE Risk Assessment Done? Y/N: Yes Risk Level: Moderate Resident Tracking Resident Involvement: Resident Care Provided Care Provided: Adult Hospital Medicine
[2016-12-14] MEDS ORDERED: PHARMACIST DISCHARGE MED REC CONSULT PRN ×2 (21:45)
[2016-12-14] MEDS ORDERED: POLYETHYLENE (MIRALAX) 17 GM PACK PO PRN (21:45)
[2016-12-14] MEDS ORDERED: ONDANSETRON INJ 2 MG/ML 2 ML VIAL IV PRN (21:45)
[2016-12-14] MEDS ORDERED: MAGNESIUM HYDROXIDE SUSP 30 ML UDC PO PRN (21:45)
[2016-12-14 22:30] VITALS: BP 133/83; PULSE 95; TEMP 36.6; O2SAT 93; Ht 154.9 cm; Wt 68.4 kg
[2016-12-14] MEDS: SODIUM CHLORIDE 0.9% 1000ML 1,000 ML IV SCH (23:39)
[2016-12-15] VITALS (9 sets, daily range): BP systolic 120–142; BP diastolic 74–86; PULSE 84–92; TEMP 36.3–36.9; O2SAT 91–96
[2016-12-15 06:35] LABS: BASO % 0.7 %; BASO ABS # 0.03 K/uL (0-0.2); EOS % 4.6 %; HEMATOCRIT 38.4 % (37-47); IG% 0.2 %; LYMPH % 29.4 %; LYMPH ABS # 1.28 K/uL (1.2-3.4); MEAN CELL VOLUME 77.4 fL (80-100); MEAN PLATELET VOLUME 10.8 fL (7.4-10.4); MONO % 10.3 %; NEUT % 54.8 %; PLATELET COUNT 178 K/uL (130-400); RED BLOOD COUNT 4.96 M/uL (4.2-5.4); WHITE BLOOD COUNT 4.35 K/uL (4.8-10.8)
[2016-12-15 07:05] LABS: BUN/CREATININE RATIO 22.9 (10-20); CALCIUM 8.7 mg/dl (8.5-10.1); CREATININE 0.97 mg/dl (0.60-1.20); POTASSIUM 3.4 mmol/L (3.5-5.1)
[2016-12-15 07:08] LABS: COMPLETE YES; MICROCYTOSIS PRESENT
[2016-12-15 07:14] LABS: ESTIMATED AVERAGE GLUCOSE 123 mg/dl; HA1C FLAG Normal (Normal)
[2016-12-15] MEDS ORDERED: PNEUMOCOCCAL ADMINISTRATION CHARGE ONE (08:00)
[2016-12-15] MEDS ORDERED: PNEUMOCOCCAL POLYSACCHARIDES 25 MCG/0.5 ML VIAL/SYR IM. ONE (08:00)
[2016-12-15] MEDS: ATORVASTATIN 40 MG TAB PO SCH (08:01)
[2016-12-15] MEDS: ASPIRIN 81 MG ECTAB PO SCH (08:01)
[2016-12-15] MEDS: HYDROCHLOROTHIAZIDE 25 MG TAB PO SCH (08:02)
[2016-12-15] MEDS: PANTOprazole SOD 40 MG TAB PO SCH (08:02)
[2016-12-15] MEDS: TELMISARTAN 40 MG TAB PO SCH (08:02)
[2016-12-15] MEDS ORDERED: POTASSIUM CHLORIDE 20 MEQ TABCR PO ONE (09:00)
--- NOTE | 2016-12-15 11:14 | Neurology Consultation ---
Neurology Consultation Date of Consultation: Dec 15, 2016. Attending Physician: Juan Espino D.O. Primary Care Physician: Desmond Wilson M.D. Reason for Consultation: Patient is an 86-year-old, was asked to see the request of Drs. Gonzalez and Shannan, for neurologic consultation regarding possible stroke. History of Present Illness Source: patient, family, caregiver, hospital records Patient has no history of stroke as far she or her (who is present at bedside) series are aware. She does have a history of hypertension and diabetes. According to the chart, the patient had an MRI of the brain September 30, 2016 for memory loss. This was requested by her memory care physician, Dr. Wilson and he noted a SLUM's score of 21 out of 30 points. The MRI showed some old small vessel ischemic changes and atrophy in general. Clinically the patient's , she had actually no memory deficits until one week ago. He felt that her memory is gotten markedly worse over the last week and was not like this before. He thought it would get better therefore he didn' t bring it to anyone's attention. Apparently on December 14, she was noted by staff at [facility], where they are residents, to be confused with some slurred speech. She is complaining of left lower extremity pain. She has been slower than usual. She arrived at the emergency room December 14 at 1712 hours with a temperature 36.7 , pulse 104, respiratory rate 18, blood pressure 122/73, and O2 saturation 96%. She was described in the emergency room with having a normal sensorium and no focal neurologic findings. Doppler study of the left lower extremity showed no evidence of DVT. CT scan of the head showed a possible right frontal temporal hypodensity of uncertain significance. Chest x-ray showed cardiomegaly CBC showed some mild anemia and a markedly low MCV Chem profile was unremarkable and a hemoglobin A1c was 5.9. Lipid profile showed a cholesterol of 219. Urinalysis was unremarkable. She's had no further incidences or problems after admission. There is no seizure activity noted. She remains confused. She has no complaints of pain, headache, weakness, numbness, balance problems, or incontinence. Her verifies this. Past Medical/Surgical History Medical Problems: (1) Altered mental state Status: Acute (2) CVA (cerebral vascular accident) Status: Acute (3) Elevated brain natriuretic peptide (BNP) level Status: Acute Hypertension Diabetes History of previous surgery Family History Patient's mother around age 78 and father around age 67. There is no information that they can tell me regarding any medical problems they had her why they . Social History Patient quit cigarette smoking in 1995. She does not consume much in the way of alcohol. 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 Smoking Status: Former smoker Smokeless Tobacco Use: No Alcohol Use: none Drug Use: none Marital Status: Housing Status: lives with significant other Occupation Status: retired Allergies Coded Allergies: NO KNOWN DRUG ALLERGIES (Verified Allergy, Unknown, ., 12/14/16) Nickel (Verified Allergy, Unknown, RASH, 12/14/16) Zinc (Verified Allergy, Unknown, RASH, 12/14/16) Current Inpatient Medications Current Inpatient Medications Medications (Trade) Dose Ordered Sig/Ekaterina Route Start Time Stop Time Status Last Admin Dose Admin Sodium Chloride 1,000 ml @ 80 mls/hr [id number] IV 12/14/16 22:45 01/13/17 22:44 12/14/16 23:39 80 MLS/HR Magnesium Hydroxide (Milk Of Magnesia Susp) 30 ml Q12H PRN PO 12/14/16 21:45 01/13/17 21:44 Ondansetron HCl (Zofran Inj) 4 mg Q6H PRN IV 12/14/16 21:45 01/13/17 21:44 Polyethylene (Miralax Powder Packet) 17 gm DAILY PRN PO 12/14/16 21:45 01/13/17 21:44 Atorvastatin Calcium (Lipitor Tab) 40 mg QAM PO 12/15/16 09:00 01/14/17 08:59 12/15/16 08:01 40 MG Aspirin (Ecotrin Tab) 81 mg QAM PO 12/15/16 09:00 01/14/17 08:59 12/15/16 08:01 81 MG Miscellaneous Information (Pharmacist Discharge Med Rec Consult) 1 ea UD PRN N/A 12/14/16 21:45 01/13/17 21:44 Temazepam (Restoril Cap) 15 mg HS PO 12/15/16 21:00 01/14/17 20:59 Pantoprazole Sodium (Protonix Tab) 40 mg QAM PO 12/15/16 09:00 01/14/17 08:59 12/15/16 08:02 40 MG Telmisartan (Micardis Tab) 80 mg DAILY PO 12/15/16 09:00 01/14/17 08:59 12/15/16 08:02 80 MG Hydrochlorothiazide (Hydrochlorothiazide Tab) 12.5 mg DAILY PO 12/15/16 09:00 01/14/17 08:59 12/15/16 08:02 12.5 MG Heparin Sodium (Porcine) (Heparin Sq 5000 Unit/0.5ml) 5,000 unit Q8 SQ 12/15/16 14:00 01/14/17 13:59 Review of Systems Constitutional: No weakness, No fatigue Eyes: No worsening of vision, No diplopia ENT: No hearing loss, No trouble swallowing Respiratory: No cough, No shortness of breath Cardiovascular: No chest pain, No palpitations Abdomen: No pain, No nausea Musculoskeletal: No joint pain, No muscle pain Genitourinary - Female: No dysuria, No urinary incontinence Neurologic: + memory loss, No weakness, No numbness/tingling, No vertigo, No balance problems Psychiatric: No depression symptoms, No anxiety Endocrine: No fatigue Hematologic / Lymphatic: No abnormal bleeding/bruising Integumentary: No rash Allergic / Immunologic: No hives Physical Exam Vital Signs (Past 24 Hrs): Date Time Temp Pulse Resp B/P (MAP) Pulse Ox O2 Delivery O2 Flow Rate FiO2 12/15/16 08:00 92 Room Air 12/15/16 07:41 36.4 92 20 142/84 (103) 91 Room Air 12/15/16 04:00 Room Air 12/15/16 03:30 36.6 92 18 128/76 (93) 96 Room Air 12/15/16 00:00 93 Room Air 12/14/16 22:30 36.6 95 16 133/83 93 Room Air 12/14/16 22:23 36.7 104 18 122/73 96 12/14/16 17:12 36.7 104 18 122/73 96 Room Air The patient is right-handed. The patient is awake and alert, pleasant and cooperative. Speech is without obvious motor aphasia. She does not seem to have a receptive aphasia but there may be some very mild dysarthria. Mood and affect are appropriate. Appearance and grooming are unremarkable. She has poor memory. She does not know her age, Hollow she's been in the hospital, much of anything about her past medical or social history: She is confused easily and doesn't figure out left from right with two-step commands. She cannot do simple calculations. The discs are sharp with positive venous pulsations. There are no exudates, hemorrhages, or blood vessel changes seen. Pupils are 3mm bilaterally and reactive to light. Extraocular eye muscles are intact without nystagmus. Visual acuity and visual fraga seem normal grossly to confrontation. There are no deficits to sensation of the face bilaterally. Corneal reflexes are positive bilaterally. Facial strength is normal bilaterally. Although there is a slight asymmetry at the corner of the mouth on the left does move voluntarily with smile. Hearing seems intact grossly to voice and finger rub. Palate moves well without asymmetry. There is normal sternocleidomastoid and trapezius strength bilaterally. Tongue is midline with good strength bilaterally. Neck is with full range of motion without discomfort. There are no cervical bruits. There are no cranial or ocular bruits. Heart is without murmur. Cervical, thoracic, and lumbar spine are nontender to palpation. Gait is normal. There is good are swing, turn, stance, and balance. With outstretched arms there is no drift. There are no resting, postural, or action tremors. There is no ataxia with [id number] testing. There is good facility in the hands. There are no abnormal involuntary movements noted. Motor strength is 5/5 diffusely in the arms bilaterally including deltoids, biceps, brachioradialis, wrist flexors and extensors, braille and talking books clerk, and intrinsic hand muscles. Motor strength is 5/5 diffusely in the legs bilaterally including hip flexors, quadriceps, hamstring, gastrocnemius, tibialis anterior, tibialis posterior, and peroneii muscles bilaterally. Toe extensors are normal and there is good bulk in the extensor digitorum brevis muscle bilaterally. The limbs have good tone without rigidity or spasticity, and there is no atrophy noted. Muscle bulk is normal, there is no tenderness, no myotonia noted to percussion, and no fasciculations seen. Sensory examination is intact to pin and touch throughout all four limbs. Reflexes are 1/4 in the biceps, triceps, brachioradialis, quadriceps, and Achilles tendons bilaterally. Toes are downgoing with plantar stimulation bilaterally. Peripheral pulses are present and of normal quality distally in all four limbs. There is no peripheral edema noted. Laboratory Results Past 24 Hours: 12/15/16 05:40 Red Blood Count 4.96, Mean Corpuscular Volume 77.4, Mean Corpuscular Hemoglobin 24.0, Mean Corpuscular Hemoglobin Concent 31.0, Mean Platelet Volume 10.8, Neutrophils (%) (Auto) 54.8, Lymphocytes (%) (Auto) 29.4, Monocytes (%) (Auto) 10.3, Eosinophils (%) (Auto) 4.6, Basophils (%) (Auto) 0.7, Neutrophils # (Auto ) 2.38, Lymphocytes # (Auto) 1.28, Monocytes # (Auto) 0.45, Eosinophils # (Auto ) 0.20, Basophils # (Auto) 0.03 12/15/16 05:40 Test 12/14/16 18:23 12/14/16 18:48 12/14/16 21:05 12/15/16 05:40 Lactic Acid Level 1.0 mmol/L (0.4-2.0) Red Blood Cell Morphology Unremarkable Total Bilirubin 0.3 mg/dl (0.2-1) Aspartate Amino Transf (AST/SGOT) 17 U/L (15-37) Alanine Aminotransferase (ALT/SGPT) 16 U/L (12-78) Alkaline Phosphatase 91 U/L (45-117) Troponin I 0.019 ng/ml (0-0.045) Pro-B-Type Natriuretic Peptide 3553 pg/ml (0-1800) Total Protein 6.5 gm/dl (6.4-8.2) Albumin 3.5 gm/dl (3.4-5.0) Globulin 3.0 gm/dl (2.5-4.0) Albumin/Globulin Ratio 1.2 (0.9-2) Lipase 158 U/L (73-393) Thyroid Stimulating Hormone (TSH) 0.692 uIu/ml (0.300-4.500) Urine Color YELLOW Urine Appearance CLEAR (CLEAR) Urine pH 6.5 (4.5-7.5) Urine Specific [place] 1.019 (1.000-1.030) Urine Protein NEG (NEG) Urine Glucose (UA) NEG (NEG) Urine Ketones NEG (NEG) Urine Occult Blood NEG (NEG) Urine Nitrite NEG (NEG) Urine Bilirubin NEG (NEG) Urine Urobilinogen NEG (NEG) Urine Leukocyte Esterase NEG (NEG) White Blood Count 4.35 K/uL (4.8-10.8) Red Blood Count 4.96 M/uL (4.2-5.4) Hemoglobin 11.9 g/dL (12.0-16.0) Hematocrit 38.4 % (37-47) Mean Corpuscular Volume 77.4 fL (80-100) Mean Corpuscular Hemoglobin 24.0 pg (25-34) Mean Corpuscular Hemoglobin Concent 31.0 g/dl (32-36) Platelet Count 178 K/uL (130-400) Mean Platelet Volume 10.8 fL (7.4-10.4) Neutrophils (%) (Auto) 54.8 % Lymphocytes (%) (Auto) 29.4 % Monocytes (%) (Auto) 10.3 % Eosinophils (%) (Auto) 4.6 % Basophils (%) (Auto) 0.7 % Neutrophils # (Auto) 2.38 K/uL (1.4-6.5) Lymphocytes # (Auto) 1.28 K/uL (1.2-3.4) Monocytes # (Auto) 0.45 K/uL (0.11-0.59) Eosinophils # (Auto) 0.20 K/uL (0-0.5) Basophils # (Auto) 0.03 K/uL (0-0.2) RDW Standard Deviation 56.4 fL (36.4-46.3) RDW Coefficient of Variation 20.4 % (11.5-14.5) Immature Granulocyte % (Auto) 0.2 % Immature Granulocyte # (Auto) 0.01 K/uL (0.00-0.02) Microcytosis PRESENT Anion Gap 8.0 mmol/L (3-11) Est Creatinine Clear Calc Drug Dose 38.2 ml/min Estimated GFR () 62.2 Estimated GFR (Non- 53.6 BUN/Creatinine Ratio 22.9 (10-20) Estimated Average Glucose 123 mg/dl Hemoglobin A1c 5.9 % (4.5-5.6) Calcium Level 8.7 mg/dl (8.5-10.1) Magnesium Level 1.8 mg/dl (1.8-2.4) Triglycerides Level 117 mg/dl (0-150) Cholesterol Level 219 mg/dl (0-200) HDL Cholesterol 44 mg/dl LDL Cholesterol, Calculated 152 mg/dl VLDL Cholesterol, Calculated 23 mg/dl Cholesterol/HDL Ratio 5.0 Test 12/15/16 07:01 Prothrombin Time 11.0 SECONDS (9.0-12.0) Prothromb Time International Ratio 1.0 (0.9-1.1) Impression 1. Dementia. According to the this is relatively acute and worse over the last week. I cannot entirely exclude a stroke but she has no neurologic deficits or focal neurologic signs on exam today. There is no obvious aphasia and there are no meningeal signs. I do not believe this is a delirium as much as a dementia. She had an MRI in September which showed some small vessel ischemic changes. Therefore this dementia is mixed vascular and aging. Other etiologies need to be considered. 2. Anemia with low MCV. 3. History of hypertension and diabetes. Plan 1. MRI of the brain to evaluate for acute pathology.. 2. Check Lyme antibody titers, B-12, folate 3. Increase activity as able. I will make additional admission depending on her clinical course and above test results. I spoke with Dr. Espino regarding his case including differential diagnoses and treatment options.
[2016-12-15] MEDS: SODIUM CHLORIDE 0.9% 1000ML 1,000 ML IV SCH ×2 (11:23→23:45)
[2016-12-15] MEDS ORDERED: PANT1TAB48 PO (12:43)
[2016-12-15] MEDS ORDERED: ASPI-435 PO (12:43)
[2016-12-15] MEDS ORDERED: CHOL1000 PO (12:43)
[2016-12-15] MEDS ORDERED: CYAN100020 PO (12:43)
--- NOTE | 2016-12-15 12:59 | Hospitalist Progress Note ---
Hospitalist Progress Note Date of Service Dec 15, 2016. (Wilma Madsen ., BRIANNAC) Subjective Pt evaluation today including: conversation w/ patient, conversation w/ family ( at bedside. spoke to son on phone), physical exam, chart review, lab review, review of studies, review of inpatient medication list Pain: None PO Intake: Tolerating PO diet Voiding: no voiding problems Patient reports feeling well. Per the patient and her , she began exhibiting slurred speech about one week ago. The denies any increased confusion or mental status. He also denies any facial drooping. The patient denies any weakness but does note some fatigue. She also complains of a productive cough. The patient denies fevers, chills, sweats, chest pain, palpitations, claudication, wheezing, shortness of breath, nausea, vomiting, abdominal pain, dysuria, hematuria, urinary retention, paralysis, weakness, numbness and tingling. Additional Comments: See HPI for pertinent positives and negatives. All other systems reviewed and negative. (Wilma Madsen ., REGGIE-C) Objective Vital Signs Date Time Temp Pulse Resp B/P (MAP) Pulse Ox O2 Delivery O2 Flow Rate FiO2 12/15/16 11:49 36.9 84 17 130/75 (93) 95 Room Air 12/15/16 08:00 92 Room Air 12/15/16 07:41 36.4 92 20 142/84 (103) 91 Room Air 12/15/16 04:00 Room Air 12/15/16 03:30 36.6 92 18 128/76 (93) 96 Room Air 12/15/16 00:00 93 Room Air 12/14/16 22:30 36.6 95 16 133/83 93 Room Air 12/14/16 22:23 36.7 104 18 122/73 96 12/14/16 17:12 36.7 104 18 122/73 96 Room Air (Wilma Madsen PA-C) Physical Exam Notes: General appearance: Well-developed, well-nourished, no apparent distress Head: Normocephalic, atraumatic Eyes: Normal inspection, PERRL, EOMI ENT: Normal ENT inspection, hearing grossly normal, pharynx normal Neck: Supple, no JVD, trachea midline Respiratory/Chest: +Crackles in bases bilaterally R>L. Normal breath sounds, no respiratory distress Cardiovascular: +Systolic murmur. Regular rate & rhythm, no gallop Abdomen/GI: Normal bowel sounds, non-tender, soft Extremities/Musculoskeletal: Normal inspection, no calf tenderness, no pedal edema Neurological/Psych: +Slurred speech. No pronator drift. Muscle strength 5/5 all extremities. Sensation intact. No facial droop. Alert, normal mood/affect , oriented x 3 Skin: Normal color, warm/dry, no rash (Wilma Madsen ., REGGIE-Michael) Laboratory Results Last 24 Hours Test 12/14/16 18:23 12/14/16 18:48 12/14/16 21:05 12/15/16 05:40 Lactic Acid Level 1.0 mmol/L White Blood Count 5.64 K/uL 4.35 K/uL Red Blood Count 5.46 M/uL 4.96 M/uL Hemoglobin 13.5 g/dL 11.9 g/dL Hematocrit 41.3 % 38.4 % Mean Corpuscular Volume 75.6 fL 77.4 fL Mean Corpuscular Hemoglobin 24.7 pg 24.0 pg Mean Corpuscular Hemoglobin Concent 32.7 g/dl 31.0 g/dl Platelet Count 196 K/uL 178 K/uL Neutrophils (%) (Auto) 62.8 % 54.8 % Lymphocytes (%) (Auto) 26.6 % 29.4 % Monocytes (%) (Auto) 6.9 % 10.3 % Eosinophils (%) (Auto) 3.0 % 4.6 % Basophils (%) (Auto) 0.5 % 0.7 % Neutrophils # (Auto) 3.54 K/uL 2.38 K/uL Lymphocytes # (Auto) 1.50 K/uL 1.28 K/uL Monocytes # (Auto) 0.39 K/uL 0.45 K/uL Eosinophils # (Auto) 0.17 K/uL 0.20 K/uL Basophils # (Auto) 0.03 K/uL 0.03 K/uL RDW Standard Deviation 55.1 fL 56.4 fL RDW Coefficient of Variation 20.5 % 20.4 % Immature Granulocyte % (Auto) 0.2 % 0.2 % Immature Granulocyte # (Auto) 0.01 K/uL 0.01 K/uL Red Blood Cell Morphology Unremarkable Sodium Level 138 mmol/L 138 mmol/L Potassium Level 4.4 mmol/L 3.4 mmol/L Chloride Level 102 mmol/L 105 mmol/L Carbon Dioxide Level 25 mmol/L 25 mmol/L Anion Gap 11.0 mmol/L 8.0 mmol/L Blood Urea Nitrogen 24 mg/dl 22 mg/dl Creatinine 0.93 mg/dl 0.97 mg/dl Est Creatinine Clear Calc Drug Dose 40.3 ml/min 38.2 ml/min Estimated GFR () 65.4 62.2 Estimated GFR (Non- 56.4 53.6 BUN/Creatinine Ratio 25.5 22.9 Random Glucose 91 mg/dl 97 mg/dl Calcium Level 9.2 mg/dl 8.7 mg/dl Magnesium Level 1.8 mg/dl 1.8 mg/dl Total Bilirubin 0.3 mg/dl Aspartate Amino Transf (AST/SGOT) 17 U/L Alanine Aminotransferase (ALT/SGPT) 16 U/L Alkaline Phosphatase 91 U/L Troponin I 0.019 ng/ml Pro-B-Type Natriuretic Peptide 3553 pg/ml Total Protein 6.5 gm/dl Albumin 3.5 gm/dl Globulin 3.0 gm/dl Albumin/Globulin Ratio 1.2 Lipase 158 U/L Thyroid Stimulating Hormone (TSH) 0.692 uIu/ml Urine Color YELLOW Urine Appearance CLEAR Urine pH 6.5 Urine Specific Warren 1.019 Urine Protein NEG Urine Glucose (UA) NEG Urine Ketones NEG Urine Occult Blood NEG Urine Nitrite NEG Urine Bilirubin NEG Urine Urobilinogen NEG Urine Leukocyte Esterase NEG Mean Platelet Volume 10.8 fL Microcytosis PRESENT Estimated Average Glucose 123 mg/dl Hemoglobin A1c 5.9 % Triglycerides Level 117 mg/dl Cholesterol Level 219 mg/dl HDL Cholesterol 44 mg/dl LDL Cholesterol, Calculated 152 mg/dl VLDL Cholesterol, Calculated 23 mg/dl Cholesterol/HDL Ratio 5.0 Test 12/15/16 07:01 Prothrombin Time 11.0 SECONDS Prothromb Time International Ratio 1.0 (Wilma Madsen, CECILIA) Diagnostic Results Reviewed the following studies and agree with interpretation as follows: Patient Name: SHARATH HERNANDEZ Unit Number: [id number] Dictated: 12/15/161406 Transcribed: 12/15/161406 DELMAR Printed Date/Time: [~ rep prt dt]/[~ rep prt tm] [~ rep ct labl] - [~ rep ct ivnm] [facility] [place] [place] [address] Dictated: 12/15/16 140 Transcribed: 12/15/16 140 JA Printed Date/Time: [~ rep prt dt]/[~ rep prt tm] [~ rep ct labl] - [~ rep ct ivnm] Patient: SHARATH HERNANDEZ Address1: [address] [facility] Rec: [id number] Address2: [place] Acct ID: [id number] [facility] Zip: [place] [address] Date: 1930 Sex: F Room/Bed: [facility] [place] Ref Phy: Cyndi Mitchell SC: CFernanda2T Att Phy: Juan Espino D.O. Report #: [id number] Jocelin Phy: Desmond Wilson M.D. Test: [facility] Admit Phy: Velvet Gonzalez MD Saxophone Player: MELVINA Interpreting Phy: Melchor Hearn MD Diagnosis: STROKE-LIKE SYMPTOMS Ordering Phy: Velvet Gonzalez MD Service Date: 12/15/16 Admit Date: 12/14/1706/12/17 MNE: PWRSCRIBE CONF: DICTATED BY: Melchor Hearn MD]] CC: Juan Espino D.O. [facility] Velvet Gonzalez MD Sepich, Rodney M. M.D. Endcc: [~ rep ct add3]] MRI OF THE BRAIN WITHOUT AND WITH IV CONTRAST CLINICAL HISTORY: Stroke. COMPARISON STUDY: MRI of the brain September 30, [address] December 14, 2016. TECHNIQUE: Utilizing a 1.5 Alicia magnet and dedicated coil, multiplanar, multiecho imaging of the brain was performed pre and postcontrast administration. IV administration of 7 mL of Gadavist contrast was uneventful. FINDINGS: There are multiple foci of restricted diffusion within the right frontotemporal region consistent with acute anterior right MCA territory infarcts. There is no mass effect or evidence of hemorrhagic conversion. There is no intracranial masses or pathologic enhancement on the postcontrast images are compromised by motion artifact. Ventricular dilatation is due to atrophy. White matter T2 hyperintense foci suggest moderate small vessel disease. Calvarial signal is maintained. IMPRESSION: Multiple foci of restricted diffusion within the right frontotemporal region consistent with acute anterior right MCA territory infarcts. No mass effect or evidence of hemorrhagic conversion. Electronically signed by: Melchor Hearn M.D. 12/15/2016 2:24 PM Dictated Date/Time: 12/15/2016 2:07 PM The status of this report is Signed. Draft = Not yet reviewed or approved by Radiologist. Signed = Reviewed and approved by Radiologist. <AttendingPhy>Juan Espino D.O.</AttendingPhy> <FamilyPhy>Cyndi Mitchell</FamilyPhy> <PrimaryPhy>Desmond Wilson M.D.</PrimaryPhy> <UnitNumber> [id number]</UnitNumber> <VisitNumber>[id number]</VisitNumber> <PatientName> SHARATH HERNANDEZ</PatientName> <DateOfBirth>1930</DateOfBirth> <Location> C.2T</Location> <ServiceDate>12/14/16</ServiceDate> <MNE>ESINDI</MNE> < OrderingPhy>Velvet Gonzalez MD</OrderingPhy> <OrderingPhyMNE>f rep ord dr carcamo</ OrderingPhyMNE> <DictatingPhyMNE>f rep dict dr carcamo</DictatingPhyMNE> <CCListMNE> f rep ct mne</CCListMNE> <AdmittingPhyMNE>f pt admit dr carcamo</AdmittingPhyMNE> < AttendingPhyMNE>f pt attend dr carcamo</AttendingPhyMNE> <ConsultingPhyMNE>f pt consult dr carcamo</ConsultingPhyMNE> <FamilyPhyMNE>f pt fam dr carcamo</FamilyPhyMNE> <OtherPhyMNE>f pt other dr carcamo</OtherPhyMNE> < PrimaryPhyMNE>f pt prim care dr carcamo</PrimaryPhyMNE> <ReferringPhyMNE>f pt referring dr carcamo</ReferringPhyMNE> Patient Name: SHARATH HERNANDEZ Unit Number: [id number] Dictated: 12/15/161337 Transcribed: 12/15/161342 JA Printed Date/Time: [~ rep prt dt]/[~ rep prt tm] [~ rep ct labl] - [~ rep ct ivnm] [facility] [place] [place] [address] Dictated: 12/15/161337 Transcribed: 12/15/161342 JA Printed Date/Time: [~ rep prt dt]/[~ rep prt tm] [~ rep ct labl] - [~ rep ct ivnm] Patient: SHARATH HERNANDEZ Address1: [address] [facility] Rec: [id number] Address2: [place] Acct ID: [id number] [facility] Zip: [place] [address] Date: 1930 Sex: F Room/Bed: [facility] [place] Ref Phy: Cyndi Mitchell SC: CFernanda2T Att Phy: Juan Espino D.O. Report #: [id number] Jocelin Phy: Desmond Wilson M.D. Test: [facility] Admit Phy: Velvet Gonzalez MD Saxophone Player: MELVINA Interpreting Phy: Melchor Hearn MD Diagnosis: STROKE-LIKE SYMPTOMS Ordering Phy: Velvet Gonzalez MD Service Date: 12/15/16 Admit Date: 12/14/1706/12/17 MNE: PWRSCRIBE CONF: DICTATED BY: Melchor Hearn MD]] CC: Juan Espino D.O. [facility] Velvet Gonzalez MD Sepich, Rodney M. M.D. Endcc: [~ rep ct add3]] MRA OF THE INTRACRANIAL CIRCULATION WITHOUT CONTRAST CLINICAL HISTORY: Stroke - Attention to [place] COMPARISON STUDY: MRI of the September 30, [address] December 14, 2016. TECHNIQUE: Utilizing a 1.5 Alicia magnet and 3-D gmga-nq-[id number] technique, unenhanced MRA of the intracranial circulation was obtained. 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 The left A1 segment is diminutive, on a congenital basis. There is persistence of the left posterior cerebral artery. There is no intracranial aneurysm although sensitivity for detection of small intracranial aneurysms is diminished on this exam. The intracranial portion of the right vertebral artery is diminutive, likely on a congenital basis. The left vertebral artery is dominant and patent. The MRI of the brain will be reported separately. IMPRESSION: 1. 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 2. No intracranial aneurysm. 3. persistence of the left posterior cerebral artery. Electronically signed by: Melchor Hearn M.D. 12/15/2016 2:38 PM Dictated Date/Time: 12/15/2016 1:38 PM The status of this report is Signed. Draft = Not yet reviewed or approved by Radiologist. Signed = Reviewed and approved by Radiologist. <AttendingPhy>Juan Espino D.O.</AttendingPhy> <FamilyPhy>[facility]</FamilyPhy> <PrimaryPhy>Desmond Wilson M.D.</PrimaryPhy> <UnitNumber> [id number]</UnitNumber> <VisitNumber>[id number]</VisitNumber> <PatientName> CARLOSSANJUANITAHRSHARATH Burroughs</PatientName> <DateOfBirth>1930</DateOfBirth> <Location> C.2T</Location> <ServiceDate>12/14/16</ServiceDate> <MNE>CORAZON</MNE> < OrderingPhy>Velvet Gonzalez MD</OrderingPhy> <OrderingPhyMNE>f rep ord dr carcamo</ OrderingPhyMNE> <DictatingPhyMNE>f rep dict dr carcamo</DictatingPhyMNE> <CCListMNE> f rep ct dona</CCListMNE> <AdmittingPhyMNE>f pt admit dr carcamo</AdmittingPhyMNE> < AttendingPhyMNE>f pt attend dr carcamo</AttendingPhyMNE> <ConsultingPhyMNE>f pt consult dr carcamo</ConsultingPhyMNE> <FamilyPhyMNE>f pt fam dr carcamo</FamilyPhyMNE> <OtherPhyMNE>f pt other dr carcamo</OtherPhyMNE> < PrimaryPhyMNE>f pt prim care dr carcamo</PrimaryPhyMNE> <ReferringPhyMNE>f pt referring dr carcamo</ReferringPhyMNE> Patient Name: SHARATH HERNANDEZ Unit Number: [id number] Dictated: 12/15/161401 Transcribed: 12/15/161401 PBS Printed Date/Time: [~ rep prt dt]/[~ rep prt tm] [~ rep ct labl] - [~ rep ct ivnm] [facility] Radiology Department [place] [id number] Dictated: 12/15/161401 Transcribed: 12/15/161401 PBS Printed Date/Time: [~ rep prt dt]/[~ rep prt tm] [~ rep ct labl] - [~ rep ct ivnm] Patient: SHARATH HERNANDEZ Address1: [address] [facility] Rec: [id number] Address2: [place] [facility] Acct ID: [id number] [facility] Zip: [place] [address] Date: 1930 Sex: F Room/Bed: [facility] Ref Phy: Cyndi Mitchell SC: C.2T Att Phy: Juan Espino D.O. Report #: [id number] Jocelin Phy: Desmond Wilson M.D. Test: [facility] Admit Phy: Velvet Gonzalez MD Saxophone Player: [facility] Interpreting Phy: Stefan Gee MD Diagnosis: STROKE-LIKE SYMPTOMS Ordering Phy: Velvet Gonzalez MD Service Date: 12/15/16 Admit Date: 12/14/1706/12/17 MNE: PWRSCRIBE CONF: DICTATED BY: Stefan Gee MD]] CC: Juan Espino D.O. [facility] Velvet Gonzalez MD Sepich, Rodney M. M.D. Endcc: [~ rep ct add3]] MRA NECK COMBO CLINICAL HISTORY: 86-year-old female with history of stroke one week ago, change in mental status. TECHNIQUE: MR angiography of the neck was performed before and after administration of intravenous contrast using 2-D vmna-lv-[id number] and gadolinium-enhanced MRA techniques. All measurements were calculated based on NASCET criteria. IV contrast: 7 mL of Gadavist. COMPARISON: None. FINDINGS: Innominate and left common carotid arteries have a common trunk of the aortic arch. Patent origins of the major cervical branch vessels of the aorta. Left dominant vertebral artery. No significant stenosis, occlusion, or dissection identified within the bilateral common carotid, internal carotid, or vertebral arteries. IMPRESSION: No significant stenosis, occlusion, or dissection identified within the carotid or vertebral arteries. Electronically signed by: Stefan Gee M.D. 12/15/2016 2:07 PM Dictated Date/Time: 12/15/2016 2:02 PM The status of this report is Signed. Draft = Not yet reviewed or approved by Radiologist. Signed = Reviewed and approved by Radiologist. <AttendingPhy>Juan Espino D.O.</AttendingPhy> <FamilyPhy>[facility]</FamilyPhy> <PrimaryPhy>Desmond Wilson M.D.</PrimaryPhy> <UnitNumber> [id number]</UnitNumber> <VisitNumber>[id number]</VisitNumber> <PatientName> SHARATH HERNANDEZ</PatientName> <DateOfBirth>1930</DateOfBirth> <Location> C.2T</Location> <ServiceDate>12/14/16</ServiceDate> <MNE>ESINDI</MNE> < OrderingPhy>Velvet Gonzalez MD</OrderingPhy> <OrderingPhyMNE>f rep ord dr carcamo</ OrderingPhyMNE> <DictatingPhyMNE>f rep dict dr carcamo</DictatingPhyMNE> <CCListMNE> f rep ct [facility]</CCListMNE> <AdmittingPhyMNE>f pt admit dr carcamo</AdmittingPhyMNE> < AttendingPhyMNE>f pt attend dr carcamo</AttendingPhyMNE> <ConsultingPhyMNE>f pt consult dr carcamo</ConsultingPhyMNE> <FamilyPhyMNE>f pt fam dr carcamo</FamilyPhyMNE> <OtherPhyMNE>f pt other dr carcamo</OtherPhyMNE> < PrimaryPhyMNE>f pt prim care dr carcamo</PrimaryPhyMNE> <ReferringPhyMNE>f pt referring dr carcamo</ReferringPhyMNE> Echocardiogram: Interpretation Summary * Name: SHARATH HERNANDEZ Study Date: 12/15/2016 09:12 AM BP: 128/76 mmHg * Patient Location: .2T\S\S236\S\1 HR: 92 * : 1930 (M/d/yy) Gender: Female Height: 61 in * Age: 86 yrs Ethnicity: [place] Weight: 154 lb * Ordering Physician: Velvet Gonzalez * Referring Physician: Desmond Wilson * Performed By: Romina Anguiano, [facility] * * Reason For Study: STROKE * BSA: 1.7 m2 * -- Conclusions -- * 1. Normal LV size. Borderline concentric LVH. * 2. Moderate to severe LV dysfunction. LVEF 30-35%. Akinetic inferior wall. Severe posterior hypokinesis. Abnormal septal motion consistent with conduction delay. Remainder of wall are mildly hypokinetic. * 3. Normal RV size and function. * 4. Mild mitral regurgitation. * 5. Grade I diastolic dysfunction. * 6. Aortic sclerosis without stenosis. * 7. Negative saline contrast study. * 8. Mild pulmonary hypertension. Est PASP 45-50. Est RA 15 mmHg. * 9. No prior studies for comparison. Procedure Details * A complete two-dimensional transthoracic echocardiogram was performed (2D, M-mode, Doppler and color flow Doppler). * A saline contrast injection was performed to assess for cardiac shunting. * The injection was performed through an intravenous line in the left arm. * The attending nurse who injected the saline contrast was HAYDER CONTRERAS RN. * A total of 30 cc of agitated saline was given. Left Ventricle * The left ventricle is grossly normal size. * There is borderline concentric left ventricular hypertrophy. * Ejection Fraction = 30-35%. * Septal motion is consistent with conduction abnormality. * There is inferior wall akinesis. * There is severe posterior wall hypokinesis. Right Ventricle * The right ventricle is grossly normal size. * The right ventricular systolic function is normal as assessed by tricuspid annular plane systolic excursion (TAPSE) (normal >1.5 cm). Atria * The left atrium is mildly dilated. * Right atrial size is normal. * Injection of contrast documented no interatrial shunt. Mitral Valve * The mitral valve leaflets appear thickened, but open well. * Mitral stenosis is absent. * There is mild mitral regurgitation. Tricuspid Valve * There is trace tricuspid regurgitation. Aortic Valve * Aortic valve sclerosis moderate, without significant aortic valvular stenosis. * No hemodynamically significant valvular aortic stenosis. * Trace aortic regurgitation. Pulmonic Valve * The pulmonary valve is inadequately visualized, but the Doppler data is adequate for interpretation. * Pulmonic stenosis is absent. * There is no pulmonic valvular regurgitation. Great Vessels * The aortic root and proximal ascending aorta are normal sized. Pericardium/Pleural * There is no pericardial effusion. Great Vessels * Dilated inferior vena cava with reduced collapsability with sniff indicates an elevated right atrial pressure of 15 mmHg Left Ventricular Diastolic Function * Grade I diastolic dysfunction, (abnormal relaxation pattern). (Wilma Madsen ., PA-C) Assessment and Plan 86-year-old female with past medical history of hypertension, hyperlipidemia, CKD stage III, insomnia, and GERD who presented with confusion and speech problems. The patient is a resident of [facility] with her . Head CT shows 2.8 x 2.6 cm right frontotemporal hypodensity with loss of bang-white differentiation which suggests an acute to subacute infarct. CVA, slurred speech--ongoing -Admit to telemetry -Stroke protocol -MRI brain shows multiple foci of restricted diffusion within the right frontotemporal region consistent with acute anterior right MCA territory infarcts. -MRA head shows occlusion of an anterior sylvian branch of the right middle cerebral artery which accounts for the acute infarct shown on CT of the head from 12/14/16 -MRA of neck negative -Echo: * -- Conclusions -- * 1. Normal LV size. Borderline concentric LVH. * 2. Moderate to severe LV dysfunction. LVEF 30-35%. Akinetic inferior wall. Severe posterior hypokinesis. Abnormal septal motion consistent with conduction delay. Remainder of wall are mildly hypokinetic. * 3. Normal RV size and function. * 4. Mild mitral regurgitation. * 5. Grade I diastolic dysfunction. * 6. Aortic sclerosis without stenosis. * 7. Negative saline contrast study. * 8. Mild pulmonary hypertension. Est PASP 45-50. Est RA 15 mmHg. * 9. No prior studies for comparison. -Neurology consulted, appreciate recs: Check MRI of the brain to evaluate for acute pathology. Check vitamin B12, folate, and Lyme titers. May increase activity as able. -B12, folate, Lyme pending -Continue aspirin 81 mg PO qd and atorvastatin 40 mg PO qd -Continue B12 and vitamin D supplements -HgbA1c checked on 12/15 is 5.9 -Lipid panel shows total cholesterol of 219, triglycerides 117, LDL 152, HDL 44 -PT/OT evaluate and treat -Speech therapy evaluate and treat: Regular diet, thin liquids. Aspiration precautions: patient should be seated fully upright during meals. Straws OK. Small bites and sips. LLE pain, swelling, erythema--resolved -No pain, edema or erythema on exam -Doppler ultrasound negative for DVT HTN--stable -Continue telmisartan/HCTZ 80/12.5 mg PO qd H/o HLD--per outpt records pt was at one time on simvastatin, but [place] records show no statin, unclear why stopped -Continue atorvastatin as above due to infarct CKD stage III--stable -Creatinine at baseline GERD -Continue pantoprazole 40 mg PO qd DVT prophylaxis -Heparin 5000 units SC q8h - SCDs Code Status -Level V, DO NOT RESUSCITATE (Wilma Madsen ., PA-C) I have seen and examined pt and agree with PA assessment and plan Pt resting comfortably in bed MRA head conclusive of stroke Underlying dementia Speech eval pending Cont ASA, statin Appreciate neuro recs Consult PT/OT (Juan Espino D.O.)
--- NOTE | 2016-12-15 14:08 | DIAGNOSTIC IMAGING REPORT ---
MRA NECK COMBO CLINICAL HISTORY: 86-year-old female with history of stroke one week ago, change in mental status. TECHNIQUE: MR angiography of the neck was performed before and after administration of intravenous contrast using 2-D dyaf-bz-wxutvw and gadolinium-enhanced MRA techniques. All measurements were calculated based on NASCET criteria. IV contrast: 7 mL of Gadavist. COMPARISON: None. FINDINGS: Innominate and left common carotid arteries have a common trunk of the aortic arch. Patent origins of the major cervical branch vessels of the aorta. Left dominant vertebral artery. No significant stenosis, occlusion, or dissection identified within the bilateral common carotid, internal carotid, or vertebral arteries. IMPRESSION: No significant stenosis, occlusion, or dissection identified within the carotid or vertebral arteries. Electronically signed by: Stefan Gee M.D. 12/15/2016 2:07 PM Dictated Date/Time: 12/15/2016 2:02 PM
[2016-12-15] MEDS ORDERED: GADAVIST IV PRN (14:15)
--- NOTE | 2016-12-15 14:25 | DIAGNOSTIC IMAGING REPORT ---
MRI OF THE BRAIN WITHOUT AND WITH IV CONTRAST CLINICAL HISTORY: Stroke. COMPARISON STUDY: MRI of the brain September 30, [address] December 14, 2016. TECHNIQUE: Utilizing a 1.5 Alicia magnet and dedicated coil, multiplanar, multiecho imaging of the brain was performed pre and postcontrast administration. IV administration of 7 mL of Gadavist contrast was uneventful. FINDINGS: There are multiple foci of restricted diffusion within the right frontotemporal region consistent with acute anterior right MCA territory infarcts. There is no mass effect or evidence of hemorrhagic conversion. There is no intracranial masses or pathologic enhancement on the postcontrast images are compromised by motion artifact. Ventricular dilatation is due to atrophy. White matter T2 hyperintense foci suggest moderate small vessel disease. Calvarial signal is maintained. IMPRESSION: Multiple foci of restricted diffusion within the right frontotemporal region consistent with acute anterior right MCA territory infarcts. No mass effect or evidence of hemorrhagic conversion. Electronically signed by: Melchor Hearn M.D. 12/15/2016 2:24 PM Dictated Date/Time: 12/15/2016 2:07 PM
[2016-12-15] MEDS: HEPARIN SOD 5000 UNIT/0.5 ML CARP SQ SCH ×2 (14:34→20:38)
--- NOTE | 2016-12-15 14:39 | DIAGNOSTIC IMAGING REPORT ---
MRA OF THE INTRACRANIAL CIRCULATION WITHOUT CONTRAST CLINICAL HISTORY: Stroke - Attention to [facility] [place] COMPARISON STUDY: MRI of the September 30, [address] December 14, 2016. TECHNIQUE: Utilizing a 1.5 Alicia magnet and 3-D zruj-[id number]-lyhoqp technique, unenhanced MRA of the intracranial circulation was obtained. 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 The left A1 segment is diminutive, on a congenital basis. There is persistence of the left posterior cerebral artery. There is no intracranial aneurysm although sensitivity for detection of small intracranial aneurysms is diminished on this exam. The intracranial portion of the right vertebral artery is diminutive, likely on a congenital basis. The left vertebral artery is dominant and patent. The MRI of the brain will be reported separately. IMPRESSION: 1. 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 2. No intracranial aneurysm. 3. persistence of the left posterior cerebral artery. Electronically signed by: Melchor Hearn M.D. 12/15/2016 2:38 PM Dictated Date/Time: 12/15/2016 1:38 PM
--- NOTE | 2016-12-15 14:42 | ECHOCARDIOGRAM REPORT ---
*NOTICE TO RECEIVING REPUBLICAN AGENCY This information is strictly Confidential and protected under [place] law. [place] law prohibits you from making any further disclosure of this information unless further disclosure is expressly permitted by the written consent of the person to whom it pertains or is authorized by law. A general authorization for the release of medical or other information is not sufficient for this purpose. Hospital accepts no responsibility if the information is made available to any other person, INCLUDING THE PATIENT. Interpretation Summary * Name: SHARATH HERNANDEZ Study Date: 12/15/2016 09:12 AM BP: 128/76 mmHg * Patient Location: .2T\S\S236\S\1 HR: 92 * : 1930 (M/d/yyy) Gender: Female Height: 61 in * Age: 86 yrs Ethnicity: [place] Weight: 154 lb * Ordering Physician: Velvet Gonzalez * Referring Physician: Desmond Wilson * Performed By: Romina Anguiano, [facility] * * Reason For Study: STROKE * BSA: 1.7 m2 * -- Conclusions -- * 1. Normal LV size. Borderline concentric LVH. * 2. Moderate to severe LV dysfunction. LVEF 30-35%. Akinetic inferior wall. Severe posterior hypokinesis. Abnormal septal motion consistent with conduction delay. Remainder of wall are mildly hypokinetic. * 3. Normal RV size and function. * 4. Mild mitral regurgitation. * 5. Grade I diastolic dysfunction. * 6. Aortic sclerosis without stenosis. * 7. Negative saline contrast study. * 8. Mild pulmonary hypertension. Est PASP 45-50. Est RA 15 mmHg. * 9. No prior studies for comparison. Procedure Details * A complete two-dimensional transthoracic echocardiogram was performed (2D, M-mode, Doppler and color flow Doppler). * A saline contrast injection was performed to assess for cardiac shunting. * The injection was performed through an intravenous line in the left arm. * The attending nurse who injected the saline contrast was HAYDER CONTRERAS RN. * A total of 30 cc of agitated saline was given. Left Ventricle * The left ventricle is grossly normal size. * There is borderline concentric left ventricular hypertrophy. * Ejection Fraction = 30-35%. * Septal motion is consistent with conduction abnormality. * There is inferior wall akinesis. * There is severe posterior wall hypokinesis. Right Ventricle * The right ventricle is grossly normal size. * The right ventricular systolic function is normal as assessed by tricuspid annular plane systolic excursion (TAPSE) (normal >1.5 cm). Atria * The left atrium is mildly dilated. * Right atrial size is normal. * Injection of contrast documented no interatrial shunt. Mitral Valve * The mitral valve leaflets appear thickened, but open well. * Mitral stenosis is absent. * There is mild mitral regurgitation. Tricuspid Valve * There is trace tricuspid regurgitation. Aortic Valve * Aortic valve sclerosis moderate, without significant aortic valvular stenosis. * No hemodynamically significant valvular aortic stenosis. * Trace aortic regurgitation. Pulmonic Valve * The pulmonary valve is inadequately visualized, but the Doppler data is adequate for interpretation. * Pulmonic stenosis is absent. * There is no pulmonic valvular regurgitation. Great Vessels * The aortic root and proximal ascending aorta are normal sized. Pericardium/Pleural * There is no pericardial effusion. Great Vessels * Dilated inferior vena cava with reduced collapsability with sniff indicates an elevated right atrial pressure of 15 mmHg Left Ventricular Diastolic Function * Grade I diastolic dysfunction, (abnormal relaxation pattern). MMode 2D Measurements and Calculations IVSd 1.1 cm IVSs 1.2 cm LVIDd 5.0 cm LVIDs 4.3 cm LVPWd 1.0 cm LVPWs 1.4 cm IVS/LVPW 1.1 FS 14.3 % EDV(Teich) 117.7 ml ESV(Teich) 81.9 ml EF(Teich) 30.4 % EDV(cubed) 124.3 ml ESV(cubed) 78.1 ml EF(cubed) 37.1 % % IVS thick 7.3 % % LVPW thick 36.5 % LV mass(C)d 197.6 grams LV mass(C)dI 116.9 grams/m\S\2 LV mass(C)s 203.5 grams LV mass(C)sI 120.4 grams/m\S\2 SV(Teich) 35.8 ml SI(Teich) 21.2 ml/m\S\2 SV(cubed) 46.1 ml SI(cubed) 27.3 ml/m\S\2 Ao root diam 3.1 cm Ao root area 7.6 cm\S\2 LA dimension 3.7 cm LA/Ao 1.2 LVOT diam 1.9 cm LVOT area 2.8 cm\S\2 Doppler Measurements and Calculations MV E max fadumo 80.9 cm/sec MV A max fadumo 70.3 cm/sec MV E/A 1.2 MV P1/2t max fadumo 105.9 cm/sec MV P1/2t 45.3 msec MVA(P1/2t) 4.9 cm\S\2 MV dec slope 685.7 cm/sec\S\2 MV dec time 0.20 sec Ao V2 max 178.9 cm/sec Ao max PG 12.8 mmHg Ao max PG (full) 9.7 mmHg MARIELY(V,A) 1.4 cm\S\2 MARIELY(V,D) 1.4 cm\S\2 AI max fadumo 374.1 cm/sec AI max PG 56.0 mmHg AI dec slope 280.4 cm/sec\S\2 AI P1/2t 390.7 msec LV V1 max PG 3.2 mmHg LV V1 max 88.5 cm/sec MR max fadumo 551.3 cm/sec MR max PG 121.7 mmHg PA V2 max 98.9 cm/sec PA max PG 3.9 mmHg TR max fadumo 283.7 cm/sec
[2016-12-15 15:23] LABS: LYME DISEASE AB IGG NEG (NEG)
[2016-12-15 15:27] LABS: LYME DISEASE AB IGM NEG (NEG)
--- NOTE | 2016-12-15 15:49 | Medical Student: [facility] ---
Med Student History & Physical Date & Time of Service: Dec 15, 2016 at 15:21 Chief Complaint: Stroke-Like Symptoms Primary Care Physician: Desmond Wilson M.D. History of Present Illness Source: patient, family ( at bedside) Samantha Colbert is a 86 yo female who presented to the ED on 12/15/2016 from [facility] complaining of confusion, memory loss, and slurring of speech for the past week (per patient's ). Previously to this stroke-like episode, patient's states she did not have any memory or speech problems. Initially in the ED, patient was complaining of lower left leg pain and swelling, but she is currently denying symptoms. In the ED, patient had an U/S looking for potential DVT, which was negative. In ED, patient was complaining of cold-like symptoms, but upon interview patient could not remember this and states they are more concerned at this point with her stroke diagnosis (per CT without contrast finding of 2.8x2.6cm right frontotemporal hypodensity). Patient is currently in a content mood, wants to go home, and denies any current complaints. Past Medical/Surgical History Medical Problems: (1) Altered mental state Status: Acute (2) CVA (cerebral vascular accident) Status: Acute (3) Elevated brain natriuretic peptide (BNP) level Status: Acute Social History Smoking Status: Former Smoker Smokeless Tobacco Use: No Alcohol Use: none Drug Use: none Marital Status: Occupational Status: retired Allergies Coded Allergies: NO KNOWN DRUG ALLERGIES (Verified Allergy, Unknown, ., 12/14/16) Nickel (Verified Allergy, Unknown, RASH, 12/14/16) Zinc (Verified Allergy, Unknown, RASH, 12/14/16) Medications Aspirin (Aspirin 81), 81 MG PO DAILY Cholecalciferol (Vitamin D3), 2 TAB PO DAILY Cyanocobalamin (Vitamin B12), 1,000 MCG PO DAILY Pantoprazole (Protonix), 1 TAB PO DAILY Telmisartan/Hctz (Micardis Hct 80MG/12.5MG), 1 TAB PO DAILY Review of Systems Constitutional: + fatigue, No fever, No chills, No sweats Eyes: No worsening of vision, No redness ENT: No hearing loss (not above baseline) Respiratory: No shortness of breath, No dyspnea at rest Cardiovascular: No chest pain, No palpitations Abdomen: No pain (not above baseline acid reflux), No nausea, No vomiting, No diarrhea, No constipation Genitourinary - Female: No dysuria, No urinary frequency Neurologic: + memory loss, No paralysis, No weakness, No numbness/tingling, No vertigo Endocrine: + fatigue, No excessive urination Integumentary: No rash, No itch Physical Exam Vital Signs (24 Hours) Date Time Temp Pulse Resp B/P (MAP) Pulse Ox O2 Delivery O2 Flow Rate FiO2 12/15/16 12:00 93 Room Air 12/15/16 11:49 36.9 84 17 130/75 (93) 95 Room Air 12/15/16 08:00 92 Room Air 12/15/16 07:41 36.4 92 20 142/84 (103) 91 Room Air 12/15/16 04:00 Room Air 12/15/16 03:30 36.6 92 18 128/76 (93) 96 Room Air 12/15/16 00:00 93 Room Air 12/14/16 22:30 36.6 95 16 133/83 93 Room Air 12/14/16 22:23 36.7 104 18 122/73 96 12/14/16 17:12 36.7 104 18 122/73 96 Room Air General Appearance: WD/WN, no apparent distress Head: normocephalic, atraumatic Eyes: normal inspection, PERRL, EOMI (slight accommadation difficulty) Respiratory/Chest: chest non-tender, normal breath sounds, no respiratory distress, no accessory muscle use Cardiovascular: regular rate, rhythm, no edema Abdomen/GI: normal bowel sounds, non tender, soft Back: normal inspection, no muscle spasm Extremities/Musculoskelatal: normal inspection, no pedal edema, normal range of motion 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, no motor/sensory deficits, alert, normal mood/affect, normal reflexes, + disoriented (knows who she is and that she is at [facility], but not oriented to date), + pertinent finding (5/5 strength bilaterally) Skin: normal color, warm/dry Diagnostics Laboratory Results Results Past 24 Hours Test 12/14/16 18:23 12/14/16 18:48 12/14/16 21:05 12/15/16 05:40 Range/Units Lactic Acid Level 1.0 0.4-2.0 mmol/L White Blood Count 5.64 4.35 4.8-10.8 K/uL Red Blood Count 5.46 4.96 4.2-5.4 M/uL Hemoglobin 13.5 11.9 12.0-16.0 g/dL Hematocrit 41.3 38.4 37-47 % Mean Corpuscular Volume 75.6 77.4 80-100 fL Mean Corpuscular Hemoglobin 24.7 24.0 25-34 pg Mean Corpuscular Hemoglobin Concent 32.7 31.0 32-36 g/dl Platelet Count 196 178 130-400 K/uL Neutrophils (%) (Auto) 62.8 54.8 % Lymphocytes (%) (Auto) 26.6 29.4 % Monocytes (%) (Auto) 6.9 10.3 % Eosinophils (%) (Auto) 3.0 4.6 % Basophils (%) (Auto) 0.5 0.7 % Neutrophils # (Auto) 3.54 2.38 1.4-6.5 K/uL Lymphocytes # (Auto) 1.50 1.28 1.2-3.4 K/uL Monocytes # (Auto) 0.39 0.45 0.11-0.59 K/uL Eosinophils # (Auto) 0.17 0.20 0-0.5 K/uL Basophils # (Auto) 0.03 0.03 0-0.2 K/uL RDW Standard Deviation 55.1 56.4 36.4-46.3 fL RDW Coefficient of Variation 20.5 20.4 11.5-14.5 % Immature Granulocyte % (Auto) 0.2 0.2 % Immature Granulocyte # (Auto) 0.01 0.01 0.00-0.02 K/uL Red Blood Cell Morphology Unremarkable Sodium Level 138 138 136-145 mmol/L Potassium Level 4.4 3.4 3.5-5.1 mmol/L Chloride Level 102 105 98-107 mmol/L Carbon Dioxide Level 25 25 21-32 mmol/L Anion Gap 11.0 8.0 3-11 mmol/L Blood Urea Nitrogen 24 22 7-18 mg/dl Creatinine 0.93 0.97 0.60-1.20 mg/dl Est Creatinine Clear Calc Drug Dose 40.3 38.2 ml/min Estimated GFR () 65.4 62.2 Estimated GFR (Non- 56.4 53.6 BUN/Creatinine Ratio 25.5 22.9 10-20 Random Glucose 91 97 70-99 mg/dl Calcium Level 9.2 8.7 8.5-10.1 mg/dl Magnesium Level 1.8 1.8 1.8-2.4 mg/dl Total Bilirubin 0.3 0.2-1 mg/dl Aspartate Amino Transf (AST/SGOT) 17 15-37 U/L Alanine Aminotransferase (ALT/SGPT) 16 12-78 U/L Alkaline Phosphatase 91 45-117 U/L Troponin I 0.019 0-0.045 ng/ml Pro-B-Type Natriuretic Peptide 3553 0-1800 pg/ml Total Protein 6.5 6.4-8.2 gm/dl Albumin 3.5 3.4-5.0 gm/dl Globulin 3.0 2.5-4.0 gm/dl Albumin/Globulin Ratio 1.2 0.9-2 Lipase 158 73-393 U/L Thyroid Stimulating Hormone (TSH) 0.692 0.300-4.500 uIu/ml Urine Color YELLOW Urine Appearance CLEAR CLEAR Urine pH 6.5 4.5-7.5 Urine Specific [place] 1.019 1.000-1.030 Urine Protein NEG NEG Urine Glucose (UA) NEG NEG Urine Ketones NEG NEG Urine Occult Blood NEG NEG Urine Nitrite NEG NEG Urine Bilirubin NEG NEG Urine Urobilinogen NEG NEG Urine Leukocyte Esterase NEG NEG Mean Platelet Volume 10.8 7.4-10.4 fL Microcytosis PRESENT Estimated Average Glucose 123 mg/dl Hemoglobin A1c 5.9 4.5-5.6 % Triglycerides Level 117 0-150 mg/dl Cholesterol Level 219 0-200 mg/dl HDL Cholesterol 44 mg/dl LDL Cholesterol, Calculated 152 mg/dl VLDL Cholesterol, Calculated 23 mg/dl Cholesterol/HDL Ratio 5.0 Test 12/15/16 07:01 12/15/16 12:49 Range/Units Prothrombin Time 11.0 9.0-12.0 SECONDS Prothromb Time International Ratio 1.0 0.9-1.1 Vitamin B12 Level 714 211-911 pg/mL Folate 11.71 >5.38 ng/mL Microbiology Results 12/14/16 Urine Culture, Received Pending Diagnostic Radiology MRA OF THE INTRACRANIAL CIRCULATION WITHOUT CONTRAST CLINICAL HISTORY: Stroke - Attention to [facility] [place] [facility] [place] COMPARISON STUDY: MRI of the September 30, [address] December 14, 2016. TECHNIQUE: Utilizing a 1.5 Alicia magnet and 3-D [id number]-hjutab technique, unenhanced MRA of the intracranial circulation was obtained. 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 The left A1 segment is diminutive, on a congenital basis. There is persistence of the left posterior cerebral artery. There is no intracranial aneurysm although sensitivity for detection of small intracranial aneurysms is diminished on this exam. The intracranial portion of the right vertebral artery is diminutive, likely on a congenital basis. The left vertebral artery is dominant and patent. The MRI of the brain will be reported separately. IMPRESSION: 1. 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 2. No intracranial aneurysm. 3. persistence of the left posterior cerebral artery. Electronically signed by: Melchor Hearn M.D. 12/15/2016 2:38 PM Dictated Date/Time: 12/15/2016 1:38 PM MRA NECK COMBO CLINICAL HISTORY: 86-year-old female with history of stroke one week ago, change in mental status. TECHNIQUE: MR angiography of the neck was performed before and after administration of intravenous contrast using 2-D [id number] and gadolinium-enhanced MRA techniques. All measurements were calculated based on NASCET criteria. IV contrast: 7 mL of Gadavist. COMPARISON: None. FINDINGS: Innominate and left common carotid arteries have a common trunk of the aortic arch. Patent origins of the major cervical branch vessels of the aorta. Left dominant vertebral artery. No significant stenosis, occlusion, or dissection identified within the bilateral common carotid, internal carotid, or vertebral arteries. IMPRESSION: No significant stenosis, occlusion, or dissection identified within the carotid or vertebral arteries. Electronically signed by: Stefan Gee M.D. 12/15/2016 2:07 PM Dictated Date/Time: 12/15/2016 2:02 PM MRI OF THE BRAIN WITHOUT AND WITH IV CONTRAST CLINICAL HISTORY: Stroke. COMPARISON STUDY: MRI of the brain September 30, [address] December 14, 2016. TECHNIQUE: Utilizing a 1.5 Alicia magnet and dedicated coil, multiplanar, multiecho imaging of the brain was performed pre and postcontrast administration. IV administration of 7 mL of Gadavist contrast was uneventful. FINDINGS: There are multiple foci of restricted diffusion within the right frontotemporal region consistent with acute anterior right MCA territory infarcts. There is no mass effect or evidence of hemorrhagic conversion. There is no intracranial masses or pathologic enhancement on the postcontrast images are compromised by motion artifact. Ventricular dilatation is due to atrophy. White matter T2 hyperintense foci suggest moderate small vessel disease. Calvarial signal is maintained. IMPRESSION: Multiple foci of restricted diffusion within the right frontotemporal region consistent with acute anterior right MCA territory infarcts. No mass effect or evidence of hemorrhagic conversion. Electronically signed by: Melchor Hearn M.D. 12/15/2016 2:24 PM Dictated Date/Time: 12/15/2016 2:07 PM CHEST ONE VIEW PORTABLE CLINICAL HISTORY: 86 years-old Female presenting with confusion. TECHNIQUE: Portable upright AP view of the chest was obtained. COMPARISON: 02/18/2015. FINDINGS: The patient is [place] rotated. Enlarged cardiac silhouette. Atherosclerosis of the aortic arch. A hiatal hernia is likely present. Lungs and pleural spaces clear. Osseous structures and upper abdomen normal. IMPRESSION: 1. No acute cardiopulmonary disease. 2. Cardiomegaly. Electronically signed by: Stefan Gee M.D. 12/14/2016 6:28 PM Dictated Date/Time: 12/14/2016 6:[address] OF THE HEAD WITHOUT CONTRAST CLINICAL HISTORY: Confusion. COMPARISON STUDY: MRI of the brain September 30, 2016. CT DOSE: 537.48 mGy.cm TECHNIQUE: Helical axial images of the head were obtained without IV contrast. Automated exposure control was utilized for the study. FINDINGS: No acute intracranial hemorrhage, midline shift or mass effect is present. There is a 2.8 x 2.6 cm hypodensity within the right frontotemporal region shown best on axial image of . There is probable loss of bang-white differentiation. There is no mass effect. Ventricular system is unremarkable for age. Mild ventricular dilatation is likely due to atrophy. The basilar cisterns are patent. There are no extra axial collections. There are no significant calvarial abnormalities. IMPRESSION: 1. No acute intracranial hemorrhage or mass effect. 2. 2.8 x 2.6 cm right frontotemporal hypodensity with loss of bang-white differentiation which suggests an acute to subacute infarct. If the clinical picture is not suggestive of infarct, an MRI could be obtained to exclude the much less likely possibility of an underlying mass. Electronically signed by: Melchor Hearn M.D. 12/14/2016 7:30 PM Dictated Date/Time: 12/14/2016 7:18 PM LEFT LOWER EXTREMITY VENOUS DOPPLER CLINICAL HISTORY: Left lower extremity pain and swelling. COMPARISON STUDY: No previous studies for comparison. TECHNIQUE: Sonography of the deep venous system of the left lower extremity was performed. Compression and augmentation were evaluated. FINDINGS: The left common femoral, superficial femoral and popliteal veins were compressible. Augmentation was normal. Flow was shown within the deep calf vessels. IMPRESSION: No evidence of deep venous thrombus within the left lower extremity. Electronically signed by: Melchor Hearn M.D. 12/14/2016 7:17 PM Dictated Date/Time: 12/14/2016 7:17 PM Impression Assessment and Plan Assessment: Samantha Colbert is a 86 yo female, with PMHx of HTN and GERD, presents with confusion and memory loss for one week. A 2.8 x 2.6 cm right frontotemporal hypodensity with loss of bang-white differentiation on brain CT without contrast suggests an acute to subacute infarct. Patient currently lives at [facility] with her . Plan: 1) Cerebrovascular Accident - CT of brain without contrast findings: 1) No acute intracranial hemorrhage or mass effect. 2) 2.8 x 2.6 cm right frontotemporal hypodensity with loss of bang -white differentiation which suggests an acute to subacute infarct. If the clinical picture is not suggestive of infarct, an MRI could be obtained to exclude the much less likely possibility of an underlying mass. - Brain MRI Findings: Multiple foci of restricted diffusion within the right frontotemporal region consistent with acute anterior right MCA territory infarcts. No mass effect or evidence of hemorrhagic conversion. - Neck MRA findings: No significant stenosis, occlusion, or dissection identified within the carotid or vertebral arteries. - Head MRA findings: 1. 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 2. No intracranial aneurysm. 3. persistence of the left posterior cerebral artery. - Echo Conclusions: * 1. Normal LV size. Borderline concentric LVH. * 2. Moderate to severe LV dysfunction. LVEF 30-35%. Akinetic inferior wall. Severe posterior hypokinesis. Abnormal septal motion consistent with conduction delay. Remainder of wall are mildly hypokinetic. * 3. Normal RV size and function. * 4. Mild mitral regurgitation. * 5. Grade I diastolic dysfunction. * 6. Aortic sclerosis without stenosis. * 7. Negative saline contrast study. * 8. Mild pulmonary hypertension. Est PASP 45-50. Est RA 15 mmHg. * 9. No prior studies for comparison. - Neurology consult: Will consult MRI for acute pathology. Order B12 (714), Lyme (pending), and folate (11.71) titers. - PT/OT consult for aspiration precautions - Continue medications of Aspirin 81 (Aspirin) 81 Mg Tab 81 Mg PO DAILY and Atorvastatin Calcium (Lipitor Tab) 40Mg PO DAILY - Monitor diabetes control. Hgb A1c: 5.9 - Monitor lipid control: Triglycerides (117), cholesterol (219), LDL (152), VLDL (23), and HDL (44) 2) Left lower leg pain and edema - U/S of LLE was negative for possible DVT. (U/S findings: No evidence of deep venous thrombus within the left lower extremity.) - Patient has no complaints at this time, will continue to monitor 3) HTN - Continue home medication (Micardis Hct 80MG/12.5MG (Telmisartan/ Hydrochlorothiazide) Tab 1 Tab PO DAILY) 4) DVT control - Heparin Sodium (Porcine) (Heparin Sq 5000 Unit/0.5ml) Q8 SQ and SCDs 5) GERD - Continue home medication (Protonix (Pantoprazole) 40 Mg Tab 1 Tab PO DAILY 30 Days) Level of Care Telemetry Advanced Directives Existing Living Will: Yes Existing Power of Parts Driver: Yes Resuscitation Status DO NOT RESUSCITATE DVT Prophylaxis unfractionated heparin SQ, SCDs
[2016-12-15] MEDS ORDERED: TEMAZEPAM 15 MG CAP PO SCH (21:00)
[2016-12-16] VITALS: BP 151/83; PULSE 112; TEMP 36.5; O2SAT 94
[2016-12-16] MEDS ORDERED: COUGH DROP (SUGAR FREE) LOZ 24 LOZ/1 BOX ONE (00:29)
[2016-12-16 04:03] VITALS: BP 147/88; PULSE 112; TEMP 36.7; O2SAT 94
[2016-12-16] MEDS: HEPARIN SOD 5000 UNIT/0.5 ML CARP SQ SCH ×2 (05:46→14:00)
[2016-12-16 06:50] LABS: BASO % 0.6 %; BASO ABS # 0.03 K/uL (0-0.2); COMPLETE YES; EOS % 4.3 %; IG% 0.2 %; LYMPH % 27.1 %; MEAN CELL VOLUME 76.3 fL (80-100); MEAN CORPUSCULAR HEMOGLOBIN 24.7 pg (25-34); MEAN CORPUSCULAR HGB CONC 32.4 g/dl (32-36); MEAN PLATELET VOLUME 10.7 fL (7.4-10.4); MONO % 6.8 %; PLATELET COUNT 195 K/uL (130-400); RED BLOOD COUNT 4.98 M/uL (4.2-5.4); WHITE BLOOD COUNT 5.17 K/uL (4.8-10.8)
[2016-12-16 07:21] LABS: BUN/CREATININE RATIO 18.4 (10-20); CALCIUM 8.6 mg/dl (8.5-10.1); CREATININE 0.93 mg/dl (0.60-1.20); POTASSIUM 3.9 mmol/L (3.5-5.1)
[2016-12-16] MEDS: ATORVASTATIN 40 MG TAB PO SCH (07:50)
[2016-12-16] MEDS: ASPIRIN 81 MG ECTAB PO SCH ×2 (07:50→09:25)
[2016-12-16] MEDS: PANTOprazole SOD 40 MG TAB PO SCH (07:51)
[2016-12-16] MEDS: HYDROCHLOROTHIAZIDE 25 MG TAB PO SCH (07:51)
[2016-12-16] MEDS: TELMISARTAN 40 MG TAB PO SCH (07:51)
[2016-12-16 08:01] VITALS: BP 148/87; PULSE 96; TEMP 36.8; O2SAT 95
--- NOTE | 2016-12-16 08:54 | Neurology Progress Notes ---
Neurology Progress Note Date of Service Dec 16, 2016. Subjective Patient feels fine with no headaches, pain, weakness, numbness, or dizziness. She has no new vision problems. Nursing reports no new events overnight. She still remains confused. MRI of the brain reveals multiple clustered acute infarct in the right frontal temporal head region (right middle cerebral artery territory Cosper and C's. There is mild to moderate generalized atrophy and small vessel ischemic changes seen as well. MR angiography of the neck was unremarkable. MR angiography of the head revealed occlusion of the sylvian branches of the right middle cerebral artery consistent with her stroke. There is a persistent origin left posterior cerebral artery vessel. Objective Date Time Temp Pulse Resp B/P (MAP) Pulse Ox O2 Delivery O2 Flow Rate FiO2 12/16/16 08:01 36.8 96 20 148/87 (107) 95 Room Air 12/16/16 04:03 36.7 112 22 147/88 (107) 94 Room Air 12/16/16 04:00 Room Air 12/16/16 00:01 Room Air 12/16/16 00:00 36.5 112 20 151/83 (105) 94 Room Air 12/15/16 20:00 Room Air 12/15/16 19:46 36.3 89 18 120/74 (89) 94 Room Air 12/15/16 16:00 36.6 85 18 140/86 (104) 92 Room Air 12/15/16 16:00 95 Room Air 12/15/16 12:00 93 Room Air 12/15/16 11:49 36.9 84 17 130/75 (93) 95 Room Air Last 24 Hours Test 12/15/16 12:49 12/16/16 06:10 Vitamin B12 Level 714 pg/mL Folate 11.71 ng/mL Lyme Disease IgG Antibody NEG Lyme Disease IgM Antibody NEG White Blood Count 5.17 K/uL Red Blood Count 4.98 M/uL Hemoglobin 12.3 g/dL Hematocrit 38.0 % Mean Corpuscular Volume 76.3 fL Mean Corpuscular Hemoglobin 24.7 pg Mean Corpuscular Hemoglobin Concent 32.4 g/dl Platelet Count 195 K/uL Mean Platelet Volume 10.7 fL Neutrophils (%) (Auto) 61.0 % Lymphocytes (%) (Auto) 27.1 % Monocytes (%) (Auto) 6.8 % Eosinophils (%) (Auto) 4.3 % Basophils (%) (Auto) 0.6 % Neutrophils # (Auto) 3.16 K/uL Lymphocytes # (Auto) 1.40 K/uL Monocytes # (Auto) 0.35 K/uL Eosinophils # (Auto) 0.22 K/uL Basophils # (Auto) 0.03 K/uL RDW Standard Deviation 54.3 fL RDW Coefficient of Variation 19.9 % Immature Granulocyte % (Auto) 0.2 % Immature Granulocyte # (Auto) 0.01 K/uL Sodium Level 139 mmol/L Potassium Level 3.9 mmol/L Chloride Level 106 mmol/L Carbon Dioxide Level 24 mmol/L Anion Gap 9.0 mmol/L Blood Urea Nitrogen 17 mg/dl Creatinine 0.93 mg/dl Est Creatinine Clear Calc Drug Dose 39.8 ml/min Estimated GFR () 65.4 Estimated GFR (Non- 56.4 BUN/Creatinine Ratio 18.4 Random Glucose 100 mg/dl Calcium Level 8.6 mg/dl Imaging: MRI OF THE BRAIN WITHOUT AND WITH IV CONTRAST CLINICAL HISTORY: Stroke. COMPARISON STUDY: MRI of the brain September 30, [address] December 14, 2016. TECHNIQUE: Utilizing a 1.5 Alicia magnet and dedicated coil, multiplanar, multiecho imaging of the brain was performed pre and postcontrast administration. IV administration of 7 mL of Gadavist contrast was uneventful. FINDINGS: There are multiple foci of restricted diffusion within the right frontotemporal region consistent with acute anterior right MCA territory infarcts. There is no mass effect or evidence of hemorrhagic conversion. There is no intracranial masses or pathologic enhancement on the postcontrast images are compromised by motion artifact. Ventricular dilatation is due to atrophy. White matter T2 hyperintense foci suggest moderate small vessel disease. Calvarial signal is maintained. IMPRESSION: Multiple foci of restricted diffusion within the right frontotemporal region consistent with acute anterior right MCA territory infarcts. No mass effect or evidence of hemorrhagic conversion. Electronically signed by: Melchor Hearn M.D. 12/15/2016 2:24 PM Dictated Date/Time: 12/15/2016 2:07 PM Exam: She is awake and alert. Speech is without aphasia or dysarthria but it is hesitant. Mood is reasonable affect is flat. She has considerable dementia. Extraocular eye muscles are intact without nystagmus. There is no facial droop. Coordination is normal in the arms without tremor. Strength is symmetrical the limbs. Current Inpatient Medications Medications (Trade) Dose Ordered Sig/Ekaterina Route Start Time Stop Time Status Last Admin Dose Admin Sodium Chloride 1,000 ml @ 80 mls/hr [id number] IV 12/14/16 22:45 01/13/17 22:44 12/15/16 23:45 80 MLS/HR Magnesium Hydroxide (Milk Of Magnesia Susp) 30 ml Q12H PRN PO 12/14/16 21:45 01/13/17 21:44 Ondansetron HCl (Zofran Inj) 4 mg Q6H PRN IV 12/14/16 21:45 01/13/17 21:44 Polyethylene (Miralax Powder Packet) 17 gm DAILY PRN PO 12/14/16 21:45 01/13/17 21:44 Atorvastatin Calcium (Lipitor Tab) 40 mg QAM PO 12/15/16 09:00 01/14/17 08:59 12/16/16 07:50 40 MG Aspirin (Ecotrin Tab) 81 mg QAM PO 12/15/16 09:00 01/14/17 08:59 12/15/16 08:01 81 MG Miscellaneous Information (Pharmacist Discharge Med Rec Consult) 1 ea UD PRN N/A 12/14/16 21:45 01/13/17 21:44 Pantoprazole Sodium (Protonix Tab) 40 mg QAM PO 12/15/16 09:00 01/14/17 08:59 12/16/16 07:51 40 MG Telmisartan (Micardis Tab) 80 mg DAILY PO 12/15/16 09:00 01/14/17 08:59 12/16/16 07:51 80 MG Hydrochlorothiazide (Hydrochlorothiazide Tab) 12.5 mg DAILY PO 12/15/16 09:00 01/14/17 08:59 12/16/16 07:51 12.5 MG Heparin Sodium (Porcine) (Heparin Sq 5000 Unit/0.5ml) 5,000 unit Q8 SQ 12/15/16 14:00 01/14/17 13:59 12/15/16 14:34 5,000 UNIT Cholecalciferol (Vitamin D Tab) 2,000 inter.unit DAILY PO 12/16/16 09:00 01/15/17 08:59 12/16/16 07:51 2,000 INTER.UNIT Cyanocobalamin (Vitamin B-12 Tab) 1,000 mcg QAM PO 12/16/16 09:00 01/15/17 08:59 12/16/16 07:50 1,000 MCG Gadobutrol (Gadavist) 7 mmol UD PRN IV 12/15/16 14:15 12/19/16 14:14 Impression 1. Dementia. According to the this is relatively acute and worse over the last week. However, she had an MRI in September for progressive dementia, which showed some small vessel ischemic changes. Therefore this dementia is mixed vascular and aging. Other etiologies need to be considered. 2. Acute/subacute right middle cerebral artery stroke This is in the frontotemporal head region and has resulted in increasing cognitive problems/confusion as opposed to physical deficits on exam. She has no focal neurologic signs on exam today. There is no obvious aphasia and there are no meningeal signs. There is no evidence for a delirium 2. Anemia with low MCV. 3. History of hypertension and diabetes. Plan 1. Increase activity as able. Consider physical therapy 2. Discharge planning would include short stay at rehabilitation Hospital versus home with home health and aids. 3. Initiate 81 mg aspirin tablet daily. I no further specific neurologic testing or treatment options to make at this time. I can follow her as an outpatient if desired.
[2016-12-16] MEDS ORDERED: CYANOCOBALAMIN 500 MCG TAB (VIT B-12) PO SCH (09:00)
[2016-12-16] MEDS ORDERED: CHOLECALCIFEROL 1000 INTER.UNIT TAB PO SCH (09:00)
--- NOTE | 2016-12-16 09:13 | Medical Student: [facility] ---
Med Student Progress Note Date of Service Dec 16, 2016. Subjective Pt evaluation today including: conversation w/ patient, chart review, lab review, review of studies Pain: patient denies PO Intake: tolerating PO diet Voiding: no voiding problems Samantha Colbert is a 86 yo female with PMHx of HTN, who presented with memory loss and confusion for 1 week; patient was diagnosed with CVA of anterior sylvian branch of the right middle cerebral artery. Upon arrival, patient was complaining of LLE swelling and redness, as well as some "cold-like" symptoms; Patient is denying any symptoms at this time. Per overnight record, patient started becoming confused early last evening with slurred speech, but when a nurse talked with her early this morning she was doing better. She denies any heart palpitations, but notes the nursing staff has told her that her heart has been "beating a little fast." Patient states she is taking all of her medications, but per nursing she is refusing her SQ heparin and SCDs; patient has been compliant with atorvastatin and aspirin. When interviewing patient, she wanted to take the EKG stickies off her chest, as they were "bothering" her , but was compliant when told she needed to keep them on while in the hospital. Review of Systems Constitutional: + fatigue, No fever, No chills, No weakness Eyes: No worsening of vision, No redness ENT: No hearing loss (not above baseline) Respiratory: No cough, No shortness of breath Cardiac: No chest pain, No edema, No palpitations Abdomen: No pain, No nausea, No vomiting, No diarrhea, No constipation Musculoskeletal: No muscle pain, No swelling Female : No dysuria, No urinary frequency, No incontinence Neurologic: + memory loss, + balance problems (needing 1 assist, per patient was ambulating fine last week without help), No weakness, No numbness/ tingling Heme: No abnormal bleeding/bruising, No clotting problems Skin: No rash, No itch Objective Vital Signs Date Time Temp Pulse Resp B/P (MAP) Pulse Ox O2 Delivery O2 Flow Rate FiO2 12/16/16 08:01 36.8 96 20 148/87 (107) 95 Room Air 12/16/16 04:03 36.7 112 22 147/88 (107) 94 Room Air 12/16/16 04:00 Room Air 7/14/17 00:01 Room Air 12/16/16 00:00 36.5 112 20 151/83 (105) 94 Room Air 12/15/16 20:00 Room Air 12/15/16 19:46 36.3 89 18 120/74 (89) 94 Room Air 12/15/16 16:00 36.6 85 18 140/86 (104) 92 Room Air 12/15/16 16:00 95 Room Air 12/15/16 12:00 93 Room Air 12/15/16 11:49 36.9 84 17 130/75 (93) 95 Room Air Physical Exam General Appearance: WD/WN, no apparent distress Eyes: bilateral eyes normal inspection, bilateral eyes pertinent finding ( small pupils even in dark room, hard to distinguish if reacted to light bilaterally) ENT: normal ENT inspection, hearing grossly normal Neck: supple Respiratory/Chest: chest non-tender, lungs clear, normal breath sounds, no respiratory distress, no accessory muscle use Cardiovascular: regular rate, rhythm, no edema Abdomen: normal bowel sounds, non tender, soft Extremities: normal range of motion, non-tender, normal inspection, no pedal edema, no calf tenderness Neurologic/Psychiatric: alert, normal mood/affect (sleepy), + disoriented ( only oriented to herself and when given menu of places could pick hospital, but only remembered "[place]" and not rest of [facility]'s name), + pertinent finding ( slurring/mumbling of some speech intermittently; trouble finding words/aphasia) Skin: normal color, warm/dry Laboratory Results Last 24 Hours Test 12/15/16 12:49 12/16/16 06:10 Vitamin B12 Level 714 pg/mL Folate 11.71 ng/mL Lyme Disease IgG Antibody NEG Lyme Disease IgM Antibody NEG White Blood Count 5.17 K/uL Red Blood Count 4.98 M/uL Hemoglobin 12.3 g/dL Hematocrit 38.0 % Mean Corpuscular Volume 76.3 fL Mean Corpuscular Hemoglobin 24.7 pg Mean Corpuscular Hemoglobin Concent 32.4 g/dl Platelet Count 195 K/uL Mean Platelet Volume 10.7 fL Neutrophils (%) (Auto) 61.0 % Lymphocytes (%) (Auto) 27.1 % Monocytes (%) (Auto) 6.8 % Eosinophils (%) (Auto) 4.3 % Basophils (%) (Auto) 0.6 % Neutrophils # (Auto) 3.16 K/uL Lymphocytes # (Auto) 1.40 K/uL Monocytes # (Auto) 0.35 K/uL Eosinophils # (Auto) 0.22 K/uL Basophils # (Auto) 0.03 K/uL RDW Standard Deviation 54.3 fL RDW Coefficient of Variation 19.9 % Immature Granulocyte % (Auto) 0.2 % Immature Granulocyte # (Auto) 0.01 K/uL Sodium Level 139 mmol/L Potassium Level 3.9 mmol/L Chloride Level 106 mmol/L Carbon Dioxide Level 24 mmol/L Anion Gap 9.0 mmol/L Blood Urea Nitrogen 17 mg/dl Creatinine 0.93 mg/dl Est Creatinine Clear Calc Drug Dose 39.8 ml/min Estimated GFR () 65.4 Estimated GFR (Non- 56.4 BUN/Creatinine Ratio 18.4 Random Glucose 100 mg/dl Calcium Level 8.6 mg/dl Medications Medications Administered Medications (Trade) Dose Ordered Sig/Ekaterina Route Start Time Stop Time Status Last Admin Dose Admin Aspirin/Aluminum/ Magnesium/Ca Carb (Ascriptin Tab) 325 mg NOW STAT PO 12/14/16 19:46 12/14/16 19:48 DC 12/14/16 20:03 325 MG Sodium Chloride 1,000 ml @ 80 mls/hr [id number] IV 12/14/16 22:45 01/13/17 22:44 12/15/16 23:45 80 MLS/HR Atorvastatin Calcium (Lipitor Tab) 40 mg QAM PO 12/15/16 09:00 01/14/17 08:59 12/16/16 07:50 40 MG Aspirin (Ecotrin Tab) 81 mg QAM PO 12/15/16 09:00 01/14/17 08:59 12/15/16 08:01 81 MG Pantoprazole Sodium (Protonix Tab) 40 mg QAM PO 12/15/16 09:00 01/14/17 08:59 12/16/16 07:51 40 MG Telmisartan (Micardis Tab) 80 mg DAILY PO 12/15/16 09:00 01/14/17 08:59 12/16/16 07:51 80 MG Hydrochlorothiazide (Hydrochlorothiazide Tab) 12.5 mg DAILY PO 12/15/16 09:00 8/12/17 08:59 12/16/16 07:51 12.5 MG Heparin Sodium (Porcine) (Heparin Sq 5000 Unit/0.5ml) 5,000 unit Q8 SQ 12/15/16 14:00 01/14/17 13:59 12/15/16 14:34 5,000 UNIT Potassium Chloride (Klor-Con Tab) 20 meq 0900 ONCE PO 12/15/16 09:00 12/15/16 09:01 DC 12/15/16 10:59 20 MEQ Cholecalciferol (Vitamin D Tab) 2,000 inter.unit DAILY PO 12/16/16 09:00 01/15/17 08:59 12/16/16 07:51 2,000 INTER.UNIT Cyanocobalamin (Vitamin B-12 Tab) 1,000 mcg QAM PO 12/16/16 09:00 01/15/17 08:59 12/16/16 07:50 1,000 MCG Menthol (Nice Cecilia) 24 cecilia STK-MED ONCE .ROUTE 12/16/16 00:29 12/16/16 00:30 DC 12/16/16 00:29 24 CECILIA Assessment and Plan Assessment and Plan: Assessment: Samantha Colbert is a 86 yo female, with PMHx of HTN and GERD, presents with confusion and memory loss for one week. A 2.8 x 2.6 cm right frontotemporal hypodensity with loss of bang-white differentiation on brain CT without contrast suggests an acute to subacute infarct. Follow-up head MRA showed occlusion of an anterior sylvian branch of the right middle cerebral artery. Patient currently lives at [facility] with her . Plan: 1) Ischemic cerebrovascular Accident of right MCA - CT of brain without contrast findings: 1) No acute intracranial hemorrhage or mass effect. 2) 2.8 x 2.6 cm right frontotemporal hypodensity with loss of bang -white differentiation which suggests an acute to subacute infarct. If the clinical picture is not suggestive of infarct, an MRI could be obtained to exclude the much less likely possibility of an underlying mass. - Brain MRI Findings: Multiple foci of restricted diffusion within the right frontotemporal region consistent with acute anterior right MCA territory infarcts. No mass effect or evidence of hemorrhagic conversion. - Neck MRA findings: No significant stenosis, occlusion, or dissection identified within the carotid or vertebral arteries. - Head MRA findings: 1. 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 2. No intracranial aneurysm. 3. persistence of the left posterior cerebral artery. - Echo Conclusions: * 1. Normal LV size. Borderline concentric LVH. * 2. Moderate to severe LV dysfunction. LVEF 30-35%. Akinetic inferior wall. Severe posterior hypokinesis. Abnormal septal motion consistent with conduction delay. Remainder of wall are mildly hypokinetic. * 3. Normal RV size and function. * 4. Mild mitral regurgitation. * 5. Grade I diastolic dysfunction. * 6. Aortic sclerosis without stenosis. * 7. Negative saline contrast study. * 8. Mild pulmonary hypertension. Est PASP 45-50. Est RA 15 mmHg. * 9. No prior studies for comparison. - Neurology consult: Will consult MRI for acute pathology. Order B12 (714), Lyme (negative), and folate (11.71) titers. - PT/OT consult for aspiration precautions (Regular diet, thin liquids. Aspiration precautions: patient should be seated fully upright during meals. Straws OK. Small bites and sips.) - Continue medications of Aspirin 81 (Aspirin) 81 Mg Tab 81 Mg PO DAILY and Atorvastatin Calcium (Lipitor Tab) 40Mg PO DAILY - Monitor diabetes control. Hgb A1c: 5.9 - Monitor lipid control: Triglycerides (117), cholesterol (219), LDL (152), VLDL (23), and HDL (44) - Offer home health/rehab services to patient and . At this time states they do not need any services at discharge and will continue living in [facility] independent living (per Icu Rn) 2) Left lower leg pain and edema and prophylactic DVT control - U/S of LLE was negative for possible DVT. (U/S findings: No evidence of deep venous thrombus within the left lower extremity.) - Patient has no complaints at this time, will continue to monitor as patient is refusing Heparin Sodium (Porcine) (Heparin Sq 5000 Unit/0.5ml) Q8 SQ and SCDs at this time, per nursing 3) HTN - Continue home medication (Micardis Hct 80MG/12.5MG (Telmisartan/ Hydrochlorothiazide) Tab 1 Tab PO DAILY) - Monitor BP's while in-patient (120/74, 151/83, 147/88, 148/87 overnight). Permissive HTN of 150s-180s okay for first week since stroke. 4) GERD - Continue home medication (Protonix (Pantoprazole) 40 Mg Tab 1 Tab PO DAILY 30 Days) Discharge planning: home
[2016-12-16 11:59] VITALS: BP 129/77; PULSE 97; TEMP 37; O2SAT 96
[2016-12-16] MEDS: SODIUM CHLORIDE 0.9% 1000ML 1,000 ML IV SCH (12:15)
[2016-12-16] MEDS ORDERED: LPT40 PO (15:19)
--- NOTE | 2016-12-16 15:34 | Discharge Instructions ---
Discharge Instructions Date of Service Dec 16, 2016. Admission Reason for Admission: Stroke-Like Symptoms Discharge Discharge Diagnosis / Problem: Stroke Discharge Goals Goal(s): Decrease discomfort, Improve function, Diagnostic testing, Therapeutic intervention Activity Recommendations Activity Limitations: resume your previous activity (as tolerated, per physical therapy recommendations) . Instructions / Follow-Up Instructions / Follow-Up You were admitted to the hospital after presenting with confusion and speech difficulties. A CT scan of the head showed an infarction in the right frontotemporal area of the brain, indicating a stroke that occurred within the last few days. This was confirmed by MRI and imaging of the head/neck arteries , which showed an occlusion of the right middle cerebral artery. You were evaluated by physical and occupation therapy, who recommended a stay at the intermediate facility at [facility] ([facility]) due to difficulties keeping your balance and decreased safety awareness. Due to your and your family's wishes to remain in independent living, you will instead be discharged and set up with outpatient physical therapy services. Medications: *Continue taking low dose aspirin 81 mg by mouth daily due to your stroke and to help prevent future strokes. *You have been placed on a cholesterol medication called atorvastatin to reduce your stroke risk. Please take atorvastatin 40 mg by mouth daily. *You may continue your other home medications as prescribed. Follow up: *Please follow up with your primary care provider within 1 week regarding your hospital stay and changes to your medications. Please seek medical attention if you experience fevers, chills, sweats, dizziness/lightheadedness, loss of consciousness, worsening confusion/changes in mental status, sudden changes in vision, worsening garbled/slurred speech or other difficulty speaking, sudden behavioral changes, facial droop, sudden one sided weakness, numbness or tingling, chest pain, shortness of breath, nausea, or vomiting. Risk Factors for Stroke: You can reduce your chances of stroke by working with your medical provider to adopt a healthy lifestyle. Some specific ways to lower your chance of stroke are: * If you are a smoker, now is the time to stop smoking cigarettes * If you are diabetic, improve the control of your blood sugars * Avoid excessive amounts of alcohol * Control high blood pressure * Lose weight if you are overweight * Be sure to lead an active lifestyle * Eat a healthy diet low in salt, cholesterol and fat You should know about other risk factors for stroke that you are unable to control. These include: * Age 55 years or older * Male gender * Certain racial groups: , or / * Family History of Stroke, Mini stroke or Heart Attack * Sickle Cell Disease Follow Up: It is important for you to keep your follow up appointments with your medical provider. Current Hospital Diet Patient's current hospital diet: Regular Diet Discharge Diet Recommended Diet: AHA Diet (Heart Healthy) Procedures Procedures Performed: Echocardiogram Pending Studies Studies pending at discharge: no Laboratory Results Hemoglobin A1c Test 12/15/16 05:40 Range/Units Estimated Average Glucose 123 mg/dl Hemoglobin A1c 5.9 H 4.5-5.6 % Lipid Panel Test 12/15/16 05:40 Range/Units Triglycerides Level 117 0-150 mg/dl Cholesterol Level 219 H 0-200 mg/dl HDL Cholesterol 44 mg/dl Cholesterol/HDL Ratio 5.0 LDL Cholesterol, Calculated 152 mg/dl Medical Emergencies . Who to Call and When: Medical Emergencies: Call 911 immediately if you experience any of the following warning signs and symptoms of Stroke: * Sudden numbness or weakness of the face, arm or leg, especially on one side of the body * Sudden confusion, trouble speaking or understanding * Sudden trouble seeing in one or both eyes * Sudden trouble walking, dizziness, loss of balance or coordination * Sudden severe headache with no cause Do not delay calling 911 if you experience any warning signs or symptoms of a stroke. Delay in seeking medical attention may affect what treatments can be given to you. . Non-Emergent Contact Non-Emergency issues call your: Primary Care Provider, Neurologist Call Non-Emergent contact if: you have a fever, you have any medication questions . Past History Medical & Surgical History: (1) CVA (cerebral vascular accident) . "Provider Documentation" section prepared by Wilma Madsen. . Stroke Core Measures Reason no t-PA for Stroke: Treatment not indicated Reason no antithrom by day 2: Treatment not indicated Reason no antithrom at D/C: Treatment provided - N/A Reason no statin at D/C: Treatment provided - N/A Reason no anticoag w/a fib: Treatment not indicated VTE Core Measure Inpt VTE Proph given/why not?: Unfractionated heparin SQ (patient refused doses ), SCD's
[2016-12-16 15:41] VITALS: BP 129/77; PULSE 97; TEMP 37; O2SAT 96
--- NOTE | 2016-12-16 15:58 | Discharge Summary ---
Discharge Summary Date of Service Dec 16, 2016. (Wilma Madsen, CECILIA) Discharge Summary Admission Date: Dec 14, 2016 at 21:35 Discharge Date: Dec 16, 2016 Discharge Disposition: Personal care ([place] with PT/OT services) Principal Diagnosis: Stroke Procedures: LEFT LOWER EXTREMITY VENOUS DOPPLER CLINICAL HISTORY: Left lower extremity pain and swelling. COMPARISON STUDY: No previous studies for comparison. TECHNIQUE: Sonography of the deep venous system of the left lower extremity was performed. Compression and augmentation were evaluated. FINDINGS: The left common femoral, superficial femoral and popliteal veins were compressible. Augmentation was normal. Flow was shown within the deep calf vessels. IMPRESSION: No evidence of deep venous thrombus within the left lower extremity. CHEST ONE VIEW PORTABLE CLINICAL HISTORY: 86 years-old Female presenting with confusion. TECHNIQUE: Portable upright AP view of the chest was obtained. COMPARISON: 02/18/2015. FINDINGS: The patient is [place] rotated. Enlarged cardiac silhouette. Atherosclerosis of the aortic arch. A hiatal hernia is likely present. Lungs and pleural spaces clear. Osseous structures and upper abdomen normal. IMPRESSION: 1. No acute cardiopulmonary disease. 2. Cardiomegaly. CT OF THE HEAD WITHOUT CONTRAST CLINICAL HISTORY: Confusion. COMPARISON STUDY: MRI of the brain September 30, 2016. CT DOSE: 537.48 mGy.cm TECHNIQUE: Helical axial images of the head were obtained without IV contrast. Automated exposure control was utilized for the study. FINDINGS: No acute intracranial hemorrhage, midline shift or mass effect is present. There is a 2.8 x 2.6 cm hypodensity within the right frontotemporal region shown best on axial image . There is probable loss of bang-white differentiation. There is no mass effect. Ventricular system is unremarkable for age. Mild ventricular dilatation is likely due to atrophy. The basilar cisterns are patent. There are no extra axial collections. There are no significant calvarial abnormalities. IMPRESSION: 1. No acute intracranial hemorrhage or mass effect. 2. 2.8 x 2.6 cm right frontotemporal hypodensity with loss of bang-white differentiation which suggests an acute to subacute infarct. If the clinical picture is not suggestive of infarct, an MRI could be obtained to exclude the much less likely possibility of an underlying mass. MRI OF THE BRAIN WITHOUT AND WITH IV CONTRAST CLINICAL HISTORY: Stroke. COMPARISON STUDY: MRI of the brain September 30, [address] December 14, 2016. TECHNIQUE: Utilizing a 1.5 Alicia magnet and dedicated coil, multiplanar, multiecho imaging of the brain was performed pre and postcontrast administration. IV administration of 7 mL of Gadavist contrast was uneventful. FINDINGS: There are multiple foci of restricted diffusion within the right frontotemporal region consistent with acute anterior right MCA territory infarcts. There is no mass effect or evidence of hemorrhagic conversion. There is no intracranial masses or pathologic enhancement on the postcontrast images are compromised by motion artifact. Ventricular dilatation is due to atrophy. White matter T2 hyperintense foci suggest moderate small vessel disease. Calvarial signal is maintained. IMPRESSION: Multiple foci of restricted diffusion within the right frontotemporal region consistent with acute anterior right MCA territory infarcts. No mass effect or evidence of hemorrhagic conversion. MRA OF THE INTRACRANIAL CIRCULATION WITHOUT CONTRAST CLINICAL HISTORY: Stroke - Attention to [place] [facility] [place] COMPARISON STUDY: MRI of the September 30, [address] December 14, 2016. TECHNIQUE: Utilizing a 1.5 Alicia magnet and 3-D sswy-al-docmrh technique, unenhanced MRA of the intracranial circulation was obtained. 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 The left A1 segment is diminutive, on a congenital basis. There is persistence of the left posterior cerebral artery. There is no intracranial aneurysm although sensitivity for detection of small intracranial aneurysms is diminished on this exam. The intracranial portion of the right vertebral artery is diminutive, likely on a congenital basis. The left vertebral artery is dominant and patent. The MRI of the brain will be reported separately. IMPRESSION: 1. 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 2. No intracranial aneurysm. 3. persistence of the left posterior cerebral artery. MRA NECK COMBO CLINICAL HISTORY: 86-year-old female with history of stroke one week ago, change in mental status. TECHNIQUE: MR angiography of the neck was performed before and after administration of intravenous contrast using 2-D tbax-se-zxrvyr and gadolinium-enhanced MRA techniques. All measurements were calculated based on NASCET criteria. IV contrast: 7 mL of Gadavist. COMPARISON: None. FINDINGS: Innominate and left common carotid arteries have a common trunk of the aortic arch. Patent origins of the major cervical branch vessels of the aorta. Left dominant vertebral artery. No significant stenosis, occlusion, or dissection identified within the bilateral common carotid, internal carotid, or vertebral arteries. IMPRESSION: No significant stenosis, occlusion, or dissection identified within the carotid or vertebral arteries. Echocardiogram: Interpretation Summary * Name: SHARATH HERNANDEZ Study Date: 12/15/2016 09:12 AM BP: 128/76 mmHg * Patient Location: [facility]\S\S236\S\1 HR: 92 * : 1930 (M/d/yyyy) Gender: Female Height: 61 in * Age: 86 yrs Ethnicity: [place] Weight: 154 lb * Ordering Physician: Velvet Gonzalez * Referring Physician: Desmond Wilson * Performed By: Romina Anguiano RCS * * Reason For Study: STROKE * BSA: 1.7 m2 * -- Conclusions -- * 1. Normal LV size. Borderline concentric LVH. * 2. Moderate to severe LV dysfunction. LVEF 30-35%. Akinetic inferior wall. Severe posterior hypokinesis. Abnormal septal motion consistent with conduction delay. Remainder of wall are mildly hypokinetic. * 3. Normal RV size and function. * 4. Mild mitral regurgitation. * 5. Grade I diastolic dysfunction. * 6. Aortic sclerosis without stenosis. * 7. Negative saline contrast study. * 8. Mild pulmonary hypertension. Est PASP 45-50. Est RA 15 mmHg. * 9. No prior studies for comparison. Procedure Details * A complete two-dimensional transthoracic echocardiogram was performed (2D, M-mode, Doppler and color flow Doppler). * A saline contrast injection was performed to assess for cardiac shunting. * The injection was performed through an intravenous line in the left arm. * The attending nurse who injected the saline contrast was HAYDER CONTRERAS RN. * A total of 30 cc of agitated saline was given. Left Ventricle * The left ventricle is grossly normal size. * There is borderline concentric left ventricular hypertrophy. * Ejection Fraction = 30-35%. * Septal motion is consistent with conduction abnormality. * There is inferior wall akinesis. * There is severe posterior wall hypokinesis. Right Ventricle * The right ventricle is grossly normal size. * The right ventricular systolic function is normal as assessed by tricuspid annular plane systolic excursion (TAPSE) (normal >1.5 cm). Atria * The left atrium is mildly dilated. * Right atrial size is normal. * Injection of contrast documented no interatrial shunt. Mitral Valve * The mitral valve leaflets appear thickened, but open well. * Mitral stenosis is absent. * There is mild mitral regurgitation. Tricuspid Valve * There is trace tricuspid regurgitation. Aortic Valve * Aortic valve sclerosis moderate, without significant aortic valvular stenosis. * No hemodynamically significant valvular aortic stenosis. * Trace aortic regurgitation. Pulmonic Valve * The pulmonary valve is inadequately visualized, but the Doppler data is adequate for interpretation. * Pulmonic stenosis is absent. * There is no pulmonic valvular regurgitation. Great Vessels * The aortic root and proximal ascending aorta are normal sized. Pericardium/Pleural * There is no pericardial effusion. Great Vessels * Dilated inferior vena cava with reduced collapsability with sniff indicates an elevated right atrial pressure of 15 mmHg Left Ventricular Diastolic Function * Grade I diastolic dysfunction, (abnormal relaxation pattern). Consultations: Neurology--Dr. Mota (Wilma Madsen ., PA-C) Medication Reconciliation New Medications: Atorvastatin (Atorvastatin Calcium) 40 Mg Tab 40 MG PO QAM for 30 Days, #30 TAB Continued Medications: Aspirin (Aspirin 81) 81 Mg Tab 81 MG PO DAILY Cholecalciferol (Vitamin D3) 1,000 Unit Tab 2 TAB PO DAILY for 30 Days, #60 TAB 5 Refills Cyanocobalamin (Vitamin B12) 1,000 Mcg Tab 1000 MCG PO DAILY Pantoprazole (Protonix) 40 Mg Tab 1 TAB PO DAILY for 30 Days, #30 TAB 3 Refills Telmisartan/Hctz (Micardis Hct 80MG/12.5MG) Tab 1 TAB PO DAILY Discharge Exam Patient reports feeling well. She denies any dizziness, confusion, worsening speech problems, numbness, tingling or weakness. Tolerating a PO diet. The patient denies fevers, chills, sweats, chest pain, palpitations, claudication, cough, wheezing, shortness of breath, nausea, vomiting, abdominal pain, dysuria , hematuria, urinary retention, paralysis, weakness, numbness and tingling. Review of Systems: Constitutional: + fatigue (difficulty sleeping last night), No fever, No chills, No sweats Eyes: No worsening of vision, No eye pain, No diplopia ENT: No hearing loss, No sore throat, No trouble swallowing Respiratory: No cough, No wheezing, No shortness of breath Cardiovascular: No chest pain, No claudication, No palpitations Abdomen: No pain, No nausea, No vomiting Musculoskeletal: No joint pain, No muscle pain, No calf pain Genitourinary - Female: No dysuria, No urinary retention, No hematuria Neurologic: + problem reported (slurred speech), No paralysis, No weakness, No numbness/tingling Integumentary: No rash, No itch, No color change Physical Exam: General Appearance: WD/WN, no apparent distress Eyes: normal inspection, PERRL, EOMI ENT: normal ENT inspection, hearing grossly normal, pharynx normal Neck: supple, no JVD, trachea midline Respiratory/Chest: normal breath sounds, no respiratory distress, + wheezing (slight wheezing) Cardiovascular: regular rate, rhythm, no gallop, no murmur Abdomen / GI: normal bowel sounds, non tender, soft Extremities: normal inspection, no calf tenderness, no pedal edema Neurologic/Psychiatric: alert, normal mood/affect, + disoriented ( disoriented to place), + pertinent finding (slurred speech, stable and unchanged from admission) Skin: normal color, warm/dry, no rash (Wilma Madsen ., PA-C) Hospital Course 86-year-old female with past medical history of hypertension, hyperlipidemia, CKD stage III, insomnia, and GERD who presented with confusion and speech problems. The patient is a resident of [facility] with her . Head CT shows 2.8 x 2.6 cm right frontotemporal hypodensity with loss of bang-white differentiation which suggests an acute to subacute infarct. CVA, slurred speech--stable -Admit to telemetry. No acute events overnight. Pt remains in sinus rhythm -Stroke protocol -MRI brain shows multiple foci of restricted diffusion within the right frontotemporal region consistent with acute anterior right MCA territory infarcts. -MRA head shows occlusion of an anterior sylvian branch of the right middle cerebral artery which accounts for the acute infarct shown on CT of the head from 12/14/16 -MRA of neck negative -Echo: * -- Conclusions -- * 1. Normal LV size. Borderline concentric LVH. * 2. Moderate to severe LV dysfunction. LVEF 30-35%. Akinetic inferior wall. Severe posterior hypokinesis. Abnormal septal motion consistent with conduction delay. Remainder of wall are mildly hypokinetic. * 3. Normal RV size and function. * 4. Mild mitral regurgitation. * 5. Grade I diastolic dysfunction. * 6. Aortic sclerosis without stenosis. * 7. Negative saline contrast study. * 8. Mild pulmonary hypertension. Est PASP 45-50. Est RA 15 mmHg. * 9. No prior studies for comparison. -Neurology consulted, appreciate recs: Increase activity as able, physical therapy. Consider short stay at rehab vs home w/home health. Continue ASA 81 mg. -Continue aspirin 81 mg PO qd and atorvastatin 40 mg PO qd, script for atorvastatin provided at discharge -Continue B12 and vitamin D supplements -HgbA1c checked on 12/15 is 5.9 -Lipid panel shows total cholesterol of 219, triglycerides 117, LDL 152, HDL 44 -PT/OT evaluate and treat--recommend stay at SNF section at [facility] before returning to independent living. Pt and family refuse. -Case management following. Pt will receive outpt PT/OT instead. Rolling walker provided. -Speech therapy evaluate and treat: Regular diet, thin liquids. Aspiration precautions: patient should be seated fully upright during meals. Straws OK. Small bites and sips. LLE pain, swelling, erythema--resolved -No pain, edema or erythema on exam -Doppler ultrasound negative for DVT HTN--stable -Continue telmisartan/HCTZ 80/12.5 mg PO qd H/o HLD--per outpt records pt was at one time on simvastatin, but [facility] records show no statin, unclear why stopped -Continue atorvastatin as above due to infarct CKD stage III--stable -Creatinine at baseline GERD -Continue pantoprazole 40 mg PO qd DVT prophylaxis -Heparin 5000 units SC q8h - SCDs Code Status -Level V, DO NOT RESUSCITATE Total Time Spent: Greater than 30 minutes This includes examination of the patient, discharge planning, medication reconciliation, and communication with other providers. (Wilma Madsen ., PA-C) I agree with PA assessment and plan and have seen and examined pt myself Resting comfortably in bed Labs and vitals reviewed Still difficulty speaking Acute CVA noted DC on ASA and statin PT/OT rec rehab but fam and pt wanting to go back to independant living with PT consult (Juan Espino D.O.) Discharge Instructions Please refer to the electronic Patient Visit Report (Discharge Instructions) for additional information. (Wilma Madsen ., BRIANNAC) Additional Copies To Desmond Wilson M.D.
--- NOTE | 2016-12-16 16:10 | Pharmacy Progress Note ---
Pharmacist Stroke Counseling Date of Service Dec 16, 2016. Scope Pharmacy has been consulted to provide medication discharge counseling for this patient admitted with ischemic stroke as per the Pharmacist Discharge Counseling for Stroke Patients Protocol. Medications on Discharge New Medications: Atorvastatin (Atorvastatin Calcium) 40 Mg Tab 40 MG PO QAM for 30 Days, #30 TAB Continued Medications: Aspirin (Aspirin 81) 81 Mg Tab 81 MG PO DAILY Cholecalciferol (Vitamin D3) 1,000 Unit Tab 2 TAB PO DAILY for 30 Days, #60 TAB 5 Refills Cyanocobalamin (Vitamin B12) 1,000 Mcg Tab 1000 MCG PO DAILY Pantoprazole (Protonix) 40 Mg Tab 1 TAB PO DAILY for 30 Days, #30 TAB 3 Refills Telmisartan/Hctz (Micardis Hct 80MG/12.5MG) Tab 1 TAB PO DAILY Action The above medications, specifically ones for stroke treatment/prophylaxis, have been reviewed in detail with the patient and/or patient billing representative(s) prior to discharge. This includes indication, common adverse reactions, drug interactions, and medication administration. Medication counseling has been employed using the teach-back method to ensure understanding. Outcome The patient with her have demonstrated understanding of the medications. Please note, they are aware that the pharmacist will call them within 72 hours post-discharge to confirm that the appropriate medications are being taken and answer any further medication related questions the patient might have at that time. Contact information Individual to be contacted: Relationship to patient (if applicable): Phone number: [phone] Best time to call: anytime Additional comments: I spoke with the patient about Lipitor and its importance in stroke reduction. She has tolerated a baby aspirin well for many years. Her is extremely knowledgeable and it the one who manages the medications. Thank you for allowing pharmacy to be involved in the care of this patient. Please call [phone] or [phone] with any additional questions
--- NOTE | 2016-12-19 09:42 | Pharmacy Progress Note ---
Pharmacist Post D/C Phone Note Date of phone call: Dec 19, 2016. Individual with whom pharmacist spoke to: Patient's The following questions were reviewed during the phone call with responses listed below each: Can you tell me the medications that you are currently taking as well as when and how you take each medication? Medications Dose Route/Sig Max Daily Dose Days Date Category Atorvastatin Calcium (Atorvastatin) 40 Mg Tab 40 Mg PO QAM 30 12/16/16 Rx Aspirin 81 (Aspirin) 81 Mg Tab 81 Mg PO DAILY 12/15/16 Reported Vitamin D3 (Cholecalciferol) 1,000 Unit Tab 2 Tab PO DAILY 30 12/15/16 Reported Vitamin B12 (Cyanocobalamin) 1,000 Mcg Tab 1,000 Mcg PO DAILY 12/15/16 Reported Protonix (Pantoprazole) 40 Mg Tab 1 Tab PO DAILY 30 12/15/16 Reported Micardis Hct 80MG/12.5MG (Telmisartan/Hydrochlorothiazide) Tab 1 Tab PO DAILY 10/01/06 Reported When have you missed any doses of your medications? - no What side effects are you having from your medications? - none What questions do you have about your medications? - none What problems are you having obtaining your medications? - none When is your next appointment with your primary care doctor? - This afternoon As per the Pharmacist Discharge Counseling for Stroke Patients Protocol, this phone call has been completed within 72 hours of discharge. Thank you for allowing us to be involved in the care of this patient.
== END 2016-12-16 16:59 | disposition home or self-care (01) | DRG 66 ==
LOC: C.EDB 17:10 → C.2T 21:35 → ENRESERV 21:41
PROVIDERS: ADMIT Family Medicine; ATTEND Hospitalist
DX: I63.511 Cerebral infarction due to unspecified occlusion or stenosis of right middle cerebral artery (principal); M79.605 Pain in left leg; F03.90 Unspecified dementia, unspecified severity, without behavioral disturbance, psychotic disturbance, mood disturbance, and anxiety; K21.9 Gastro-esophageal reflux disease without esophagitis; D64.9 Anemia, unspecified; E11.9 Type 2 diabetes mellitus without complications; E78.5 Hyperlipidemia, unspecified; N18.3 Chronic kidney disease, stage 3 (moderate); I12.9 Hypertensive chronic kidney disease with stage 1 through stage 4 chronic kidney disease, or unspecified chronic kidney disease; Z66 Do not resuscitate; Z79.82 Long term (current) use of aspirin; Z79.899 Other long term (current) drug therapy; R53.83 Other fatigue

== ENCOUNTER → 2016-12-14 | Outpatient (CLI) | payer BC ==
[2016-12-14 09:01] LABS: ALT/SGPT 15 U/L (12-78); BLOOD UREA NITROGEN 24 mg/dl (7-18); BUN/CREATININE RATIO 21.9 (10-20); CARBON DIOXIDE 26 mmol/L (21-32); CHLORIDE 102 mmol/L (98-107); GLUCOSE 92 mg/dl (70-99); POTASSIUM 3.6 mmol/L (3.5-5.1); SODIUM 137 mmol/L (136-145)
[2016-12-14 09:12] LABS: ALKALINE PHOSPHATASE 83 U/L (45-117); AST/SGOT 12 U/L (15-37); THYROID STIMULATING HORMONE 0.833 uIu/ml (0.300-4.500)
== END | disposition home or self-care (01) ==
LOC: C.LABFOXMH 08:36
PROVIDERS: ATTEND Nurse Practitioner Family
DX: R53.83 Other fatigue (principal)

== ENCOUNTER → 2017-01-04 | Outpatient (CLI) | payer BC ==
[~2017-01-04] MED LIST changes: +ASPI-435 PO; +CHOL1000 PO; -CHOL20009 PO; +CYAN100020 PO; -CYAN10005 PO; +LPT40 PO; +PANT1TAB48 PO; -PRT/20 PO; -TEMA15CA4 PO
--- NOTE | 2017-01-04 13:01 | DIAGNOSTIC IMAGING REPORT ---
CT HEAD WITHOUT CONTRAST (CT) CLINICAL HISTORY: Mental status change. Recent stroke. Evaluate for hemorrhage. COMPARISON STUDY: 12/14/2016 TECHNIQUE: Axial CT of the brain is performed from the vertex to the skull base. IV contrast was not administered for this examination. A dose lowering technique was utilized adhering to the principles of ALARA. CT DOSE: 614.27 mGy.cm FINDINGS: No intra or extra-axial mass lesions are visualized. There is no CT evidence of acute cortical infarction. There is no evidence of midline shift. There is no acute hemorrhage. No calvarial fractures are visualized. There are patchy white matter hypodensities likely on a small vessel basis. There are subtle changes in the right frontal lobe, consistent with the recently identified infarct. There is no evidence of pathologic ventricular dilatation. There is no evidence of acute sinusitis IMPRESSION: No acute intracranial findings Electronically signed by: Ted Duvall M.D. 01/04/2017 1:00 PM Dictated Date/Time: 01/04/2017 12:58 PM
== END | disposition home or self-care (01) ==
LOC: C.CTS 12:46
PROVIDERS: ATTEND Nurse Practitioner Family
DX: R41.82 Altered mental status, unspecified (principal)

== ENCOUNTER → 2017-02-03 | Outpatient (CLI) | payer BC ==
[2017-02-03 10:32] LABS: ALT/SGPT 15 U/L (12-78); BLOOD UREA NITROGEN 19 mg/dl (7-18); BUN/CREATININE RATIO 18.5 (10-20); CALCIUM 9.1 mg/dl (8.5-10.1); CARBON DIOXIDE 28 mmol/L (21-32); CHLORIDE 103 mmol/L (98-107); CHOLESTEROL 138 mg/dl (0-200); GLUCOSE 93 mg/dl (70-99); POTASSIUM 3.4 mmol/L (3.5-5.1); SODIUM 139 mmol/L (136-145)
[2017-02-03 10:35] LABS: ALKALINE PHOSPHATASE 93 U/L (45-117); AST/SGOT 12 U/L (15-37); CHOLESTEROL/HDL RATIO 2.5; HDL CHOLESTEROL 55 mg/dl; LDL CHOLESTEROL CALCULATED 66 mg/dl; TRIGLYCERIDES 83 mg/dl (0-150); VERY LOW DENSITY LIPOPROT CALC 17 mg/dl
== END ==
LOC: C.LABFOXMH 09:51
PROVIDERS: ATTEND Nurse Practitioner Family
DX: E78.00 Pure hypercholesterolemia, unspecified (principal)

== ENCOUNTER → 2017-03-21 | Outpatient (CLI) | payer BC ==
[2017-03-21 11:04] LABS: HEMATOCRIT 39.8 % (37-47); MEAN CELL VOLUME 86.3 fL (80-100); MEAN CORPUSCULAR HEMOGLOBIN 29.3 pg (25-34); MEAN CORPUSCULAR HGB CONC 33.9 g/dl (32-36); MEAN PLATELET VOLUME 11.3 fL (7.4-10.4); PLATELET COUNT 153 K/uL (130-400); RED BLOOD COUNT 4.61 M/uL (4.2-5.4); WHITE BLOOD COUNT 4.58 K/uL (4.8-10.8)
[2017-03-21 11:20] LABS: ALT/SGPT 18 U/L (12-78); BLOOD UREA NITROGEN 23 mg/dl (7-18); BUN/CREATININE RATIO 21.5 (10-20); CALCIUM 9.2 mg/dl (8.5-10.1); CARBON DIOXIDE 28 mmol/L (21-32); CHLORIDE 104 mmol/L (98-107); CHOLESTEROL 130 mg/dl (0-200); CHOLESTEROL/HDL RATIO 2.7; CREATININE 1.09 mg/dl (0.60-1.20); GLUCOSE 90 mg/dl (70-99); HDL CHOLESTEROL 48 mg/dl; LDL CHOLESTEROL CALCULATED 60 mg/dl; POTASSIUM 3.5 mmol/L (3.5-5.1); SODIUM 140 mmol/L (136-145); TRIGLYCERIDES 110 mg/dl (0-150); VERY LOW DENSITY LIPOPROT CALC 22 mg/dl
[2017-03-21 11:22] LABS: ALB/GLOB RATIO 1.1 (0.9-2); ALKALINE PHOSPHATASE 101 U/L (45-117); AST/SGOT 17 U/L (15-37)
== END | disposition home or self-care (01) ==
LOC: C.LABFOXMH 11:03
PROVIDERS: ATTEND Internal Medicine Hospice and Palliative Medicine
DX: I63.311 Cerebral infarction due to thrombosis of right middle cerebral artery (principal)

== ENCOUNTER → 2017-06-15 | Outpatient (CLI) | payer BC ==
[~2017-06-15] MED LIST changes: +PANT1TAB3 PO; -PANT1TAB48 PO; -TELM80TA4 PO; +TELM80TA6 PO
== END | disposition home or self-care (01) ==
LOC: C.LABFOXMH 17:09
PROVIDERS: ATTEND Internal Medicine Hospice and Palliative Medicine
DX: R35.0 Frequency of micturition (principal)

== ENCOUNTER 2017-06-24 19:19 | Observation (INO) | payer BC ==
[~2017-06-24] VITALS: Ht 162.6 cm; Wt 62.0 kg
[2017-06-24] MEDS ORDERED: SODIUM CHLORIDE 0.9% 1000ML 500 ML IV ONE (19:31)
--- NOTE | 2017-06-24 19:47 | EMERGENCY ROOM VISIT NOTE ---
History Report prepared by Wilman: Stacey Deutsch Under the Supervision of: Dr. Madhavi Gutierres M.D. First contact with patient: 19:26 Stated Complaint: HYPOTENSION/SYNCOPE History of Present Illness The patient is a 87 year old female who presents to the Emergency Room with complaints of an episode of unresponsiveness for approximately 5 minutes that occurred immediately after eating dinner. The patient's states she did not fall or slump over, she just would not respond. She notes that she did not feel sick prior to her episode. Secondary to her episode, the patient states she is lethargic. She states she has chest pain and shortness of breath. The patient denies any fevers, nausea, vomiting, or diarrhea. She notes that she had a stroke 6 months ago. Source of History: patient Onset: today Position: other (global) Quality: other (syncope episode) Timing: resolved Associated Symptoms: + chest pain, + SOB, No nausea, No vomiting, No diarrhea Review of Systems See HPI for pertinent positives & negatives. A total of 10 systems reviewed and were otherwise negative. Past Medical & Surgical Medical Problems: (1) Stroke-like symptoms Family History Patient reports no known family medical history. Social History Smoking Status: Former Smoker Alcohol Use: none Drug Use: none Marital Status: Housing Status: lives with significant other Occupation Status: retired Current/Historical Medications Scheduled Aspirin (Aspirin 81), 81 MG PO DAILY Atorvastatin (Lipitor), 40 MG PO DAILY B-Complex W/ C-Min-Fe & Folic (Ferrocite Plus), 2 TABS PO QAM Cholecalciferol (Vitamin D3), 2 TAB PO DAILY Cyanocobalamin (Vitamin B12), 1,000 MCG PO DAILY Pantoprazole (Protonix), 1 TAB PO DAILY Quetiapine Fumarate (Seroquel), 50 MG PO QPM Telmisartan/Hctz (Micardis Hct 80MG/12.5MG), 1 TAB PO DAILY Allergies Coded Allergies: Homatropine (Verified Allergy, Unknown, UNKNOWN, 06/24/17) INFO FROM [facility] Hydrocodone (Verified Allergy, Unknown, UNKNOWN, 06/24/17) INFO FROM [facility] Methylprednisolone (Verified Allergy, Unknown, UNKNOWN, 06/24/17) INFO FROM [facility] Nickel (Verified Allergy, Unknown, RASH, 7/12/17) Zinc (Verified Allergy, Unknown, RASH, 12/14/16) Physical Exam Vital Signs Date Time Temp Pulse Resp B/P (MAP) Pulse Ox O2 Delivery O2 Flow Rate FiO2 06/25/17 00:35 69 16 95 06/25/17 00:31 124/66 06/25/17 00:20 75 14 93 06/25/17 00:05 82 14 94 06/25/17 00:00 129/98 06/24/17 23:39 86 06/24/17 23:35 80 13 93 06/24/17 23:30 84 18 125/67 94 06/24/17 23:15 83 15 06/24/17 23:00 88 13 113/54 06/24/17 22:55 88 20 108/57 95 Room Air 06/24/17 22:45 77 15 06/24/17 21:19 88 14 110/50 95 06/24/17 21:04 97 20 99/49 96 06/24/17 20:31 97 20 112/51 96 06/24/17 20:01 93 14 108/44 94 06/24/17 19:49 96 Room Air 06/24/17 19:44 95 20 109/45 95 06/24/17 19:35 93 06/24/17 19:34 93 20 102/50 94 06/24/17 19:29 36.6 93 20 85/53 93 Room Air Physical Exam Vital signs reviewed. General: Elderly, generally well-appearing female, in no significant distress. Noted to be hypotensive. HEENT: No scleral icterus, PERRLA, neck supple. Atraumatic. Cardiovascular: Regular rate and rhythm, no extra sounds. Pulmonary: Clear to auscultation bilaterally, normal work of breathing. Abdomen: Soft, nontender, nondistended, positive bowel sounds. Musculoskeletal: Atraumatic, no peripheral edema. Neurologic: Patient awake alert and oriented x 3, full strength in all 4 extremities. Cranial nerves 2 through 12 grossly intact. Skin: Warm, dry, no rash Medical Decision & Procedures ER Provider Diagnostic Interpretation: Radiology results as stated below per my review and radiologist interpretation: SINGLE VIEW CHEST CLINICAL HISTORY: Sepsis. Hypotension and syncope. FINDINGS: An AP, portable, upright chest radiograph is compared to study dated 12/14/2016. The examination is degraded by portable technique and patient rotation. The heart is enlarged and there is atherosclerotic calcification of the thoracic aorta. The pulmonary vasculature is noncongested. Chronic interstitial thickening is similar to previous. A hiatal hernia is suspected. No airspace consolidation or large pleural effusion is identified. No pneumothorax is seen. The skeletal structures are osteopenic. The bony thorax is grossly intact. Degenerative change and scoliosis are noted in the thoracic spine. IMPRESSION: Cardiomegaly with no acute cardiopulmonary abnormality. Electronically signed by: Madi Davis M.D. 06/24/2017 9:07 PM Dictated Date/Time: 06/24/2017 9:[address] per stat read: Impression: #1 no intracranial hemorrhage or skull fracture. #2 involutional changes with small vessel disease. Radiologist: Nikki Del Rosario M.D. Laboratory Results 06/24/17 23:08 Red Blood Count 3.92, Mean Corpuscular Volume 90.3, Mean Corpuscular Hemoglobin 30.1, Mean Corpuscular Hemoglobin Concent 33.3, Mean Platelet Volume 10.5, Neutrophils (%) (Auto) 74.7, Lymphocytes (%) (Auto) 18.8, Monocytes (%) (Auto) 4.6, Eosinophils (%) (Auto) 1.4, Basophils (%) (Auto) 0.3, Neutrophils # (Auto) 4.40, Lymphocytes # (Auto) 1.11, Monocytes # (Auto) 0.27, Eosinophils # (Auto) 0.08, Basophils # (Auto) 0.02 06/24/17 19:50 Test 06/24/17 19:40 06/24/17 19:50 06/24/17 23:08 Urine Color YELLOW Urine Appearance CLEAR (CLEAR) Urine pH 6.5 (4.5-7.5) Urine Specific [place] 1.015 (1.000-1.030) Urine Protein NEG (NEG) Urine Glucose (UA) NEG (NEG) Urine Ketones NEG (NEG) Urine Occult Blood NEG (NEG) Urine Nitrite NEG (NEG) Urine Bilirubin NEG (NEG) Urine Urobilinogen NEG (NEG) Urine Leukocyte Esterase TRACE (NEG) Urine WBC (Auto) 1-5 /hpf (0-5) Urine RBC (Auto) 0-4 /hpf (0-4) Urine Hyaline Casts (Auto) 1-5 /lpf (0-5) Urine Epithelial Cells (Auto) >30 /lpf (0-5) Urine Bacteria (Auto) NEG (NEG) Anion Gap 8.0 mmol/L (3-11) Est Creatinine Clear Calc Drug Dose 29.6 ml/min Estimated GFR () 47.7 Estimated GFR (Non- 41.2 BUN/Creatinine Ratio 23.4 (10-20) Calcium Level 7.9 mg/dl (8.5-10.1) Total Bilirubin 0.5 mg/dl (0.2-1) Aspartate Amino Transf (AST/SGOT) 10 U/L (15-37) Alanine Aminotransferase (ALT/SGPT) 13 U/L (12-78) Alkaline Phosphatase 87 U/L (45-117) Troponin I < 0.015 ng/ml (0-0.045) Total Protein 5.6 gm/dl (6.4-8.2) Albumin 2.9 gm/dl (3.4-5.0) Globulin 2.7 gm/dl (2.5-4.0) Albumin/Globulin Ratio 1.1 (0.9-2) White Blood Count 5.89 K/uL (4.8-10.8) Red Blood Count 3.92 M/uL (4.2-5.4) Hemoglobin 11.8 g/dL (12.0-16.0) Hematocrit 35.4 % (37-47) Mean Corpuscular Volume 90.3 fL (80-100) Mean Corpuscular Hemoglobin 30.1 pg (25-34) Mean Corpuscular Hemoglobin Concent 33.3 g/dl (32-36) Platelet Count 137 K/uL (130-400) Mean Platelet Volume 10.5 fL (7.4-10.4) Neutrophils (%) (Auto) 74.7 % Lymphocytes (%) (Auto) 18.8 % Monocytes (%) (Auto) 4.6 % Eosinophils (%) (Auto) 1.4 % Basophils (%) (Auto) 0.3 % Neutrophils # (Auto) 4.40 K/uL (1.4-6.5) Lymphocytes # (Auto) 1.11 K/uL (1.2-3.4) Monocytes # (Auto) 0.27 K/uL (0.11-0.59) Eosinophils # (Auto) 0.08 K/uL (0-0.5) Basophils # (Auto) 0.02 K/uL (0-0.2) RDW Standard Deviation 44.7 fL (36.4-46.3) RDW Coefficient of Variation 13.5 % (11.5-14.5) Immature Granulocyte % (Auto) 0.2 % Immature Granulocyte # (Auto) 0.01 K/uL (0.00-0.02) Prothrombin Time 11.4 SECONDS (9.0-12.0) Prothromb Time International Ratio 1.1 (0.9-1.1) Activated Partial Thromboplast Time 23.1 SECONDS (21.0-31.0) Partial Thromboplastin Ratio 0.9 Lactic Acid Level 0.6 mmol/L (0.4-2.0) Laboratory results per my review. Medications Administered Medications (Trade) Dose Ordered Sig/Ekaterina Route Start Time Stop Time Status Last Admin Dose Admin Sodium Chloride 500 ml @ 999 mls/hr Q31M ONCE IV 06/24/17 19:31 06/24/17 20:01 DC 06/24/17 19:31 999 MLS/HR ECG Indication: syncope Rate (beats per minute): 90 Rhythm: normal sinus Findings: LBBB, left axis deviation, other (t wave abnormalities in lateral leads) Change: no significant change (12/14/16) ED Course 1926: Past medical records reviewed. The patient was evaluated in room B8. A complete history and physical examination was performed. 1930: Ordered Sodium Chloride 500 ml @ 999 mls/hr IV. 2011: I reevaluated the patient, who was resting comfortably. 0021: I reviewed the patient's case with Dr. Miles [facility] [place]. He will evaluate the patient for further management. Medical Decision Differential diagnosis: Etiologies such as vasovagal event, infection, hypoglycemia, electrolyte abnormalities, cardiac sources, intracerebral event, toxicologic, neurologic, as well as others were entertained. This patient was evaluated and appeared to be in no significant distress. IV access was obtained and laboratory work was drawn. The patient was placed on the television repairman and found to be in a normal sinus rhythm. Patient is a left bundle branch block with no significant change from previous. Patient is noted to be hypotensive on EMS arrival, she did receive IV hydration and had improvement however remained hypotensive on arrival to the ER. Laboratory work is unrevealing. The patient's UA is negative. CT scan of the head was performed and reveals no evidence of acute intracranial abnormality. Given the patient's history of stroke 6 months ago and the period of unresponsiveness, the patient be evaluated by the hospitalist service for further management. Medication Reconcilliation Current Medication List: was personally reviewed by me Consults Time Called: 002 Consulting Physician: RAMONITA Apple Returned Call: 002 reviewed the patient's case with RAMONITA Apple. He will evaluate the patient for further management. Impression Primary Impression: TIA (transient ischemic attack) Scribe Attestation The scribe's documentation has been prepared under my direction and personally reviewed by me in its entirety. I confirm that the note above accurately reflects all work, treatment, procedures, and medical decision making performed by me. Departure Information Dispostion Being Evaluated By Hospitalist Referrals Cyndi Mitchell (PCP) Forms HOME CARE DOCUMENTATION FORM, IMPORTANT VISIT INFORMATION
[2017-06-24] MEDS ORDERED: B COTAB PO (20:29)
[2017-06-24] MEDS ORDERED: ATOR-24 PO (20:29)
[2017-06-24] MEDS ORDERED: QUET1TAB32 PO (20:29)
--- NOTE | 2017-06-24 21:08 | DIAGNOSTIC IMAGING REPORT ---
SINGLE VIEW CHEST CLINICAL HISTORY: Sepsis. Hypotension and syncope. FINDINGS: An AP, portable, upright chest radiograph is compared to study dated 12/14/2016. The examination is degraded by portable technique and patient rotation. The heart is enlarged and there is atherosclerotic calcification of the thoracic aorta. The pulmonary vasculature is noncongested. Chronic interstitial thickening is similar to previous. A hiatal hernia is suspected. No airspace consolidation or large pleural effusion is identified. No pneumothorax is seen. The skeletal structures are osteopenic. The bony thorax is grossly intact. Degenerative change and scoliosis are noted in the thoracic spine. IMPRESSION: Cardiomegaly with no acute cardiopulmonary abnormality. Electronically signed by: Madi Davis M.D. 06/24/2017 9:07 PM Dictated Date/Time: 06/24/2017 9:05 PM
[2017-06-24 21:16] LABS: ALBUMIN 2.9 gm/dl (3.4-5.0); ALT/SGPT 13 U/L (12-78); AST/SGOT 10 U/L (15-37); BLOOD UREA NITROGEN 28 mg/dl (7-18); CALCIUM 7.9 mg/dl (8.5-10.1); CARBON DIOXIDE 25 mmol/L (21-32); GLUCOSE 140 mg/dl (70-99); POTASSIUM 3.5 mmol/L (3.5-5.1); SODIUM 138 mmol/L (136-145)
[2017-06-24 21:21] LABS: ALKALINE PHOSPHATASE 87 U/L (45-117); TOTAL PROTEIN 5.6 gm/dl (6.4-8.2)
[2017-06-24 23:21] LABS: BASO % 0.3 %; BASO ABS # 0.02 K/uL (0-0.2); EOS % 1.4 %; EOS ABS # 0.08 K/uL (0-0.5); HEMATOCRIT 35.4 % (37-47); HEMOGLOBIN 11.8 g/dL (12.0-16.0); IG# 0.01 K/uL (0.00-0.02); LYMPH % 18.8 %; LYMPH ABS # 1.11 K/uL (1.2-3.4); MEAN CELL VOLUME 90.3 fL (80-100); MEAN CORPUSCULAR HEMOGLOBIN 30.1 pg (25-34); MEAN CORPUSCULAR HGB CONC 33.3 g/dl (32-36); MEAN PLATELET VOLUME 10.5 fL (7.4-10.4); MONO % 4.6 %; MONO ABS # 0.27 K/uL (0.11-0.59); NEUT % 74.7 %; PLATELET COUNT 137 K/uL (130-400); RED CELL DISTRIBUTION WIDTH CV 13.5 % (11.5-14.5); RED CELL DISTRIBUTION WIDTH SD 44.7 fL (36.4-46.3); WHITE BLOOD COUNT 5.89 K/uL (4.8-10.8)
[2017-06-24 23:33] LABS: INR 1.1 (0.9-1.1); PTT PATIENT 23.1 SECONDS (21.0-31.0)
--- NOTE | 2017-06-25 01:38 | History and Physical ---
History & Physical Date & Time of Service: Jun 25, 2017 at 01:30 Chief Complaint: Hypotension/Syncope Primary Care Physician: Cyndi Mitchell History of Present Illness Source: patient 87 year old female from [facility] presents to hospital with 5 minute episode of lack of response/glazed look followed by period of lethargy and hypotension ( SBP 60s). Patient previously admitted to hospital with right frontotemporal stroke in December 2016. In the ED, CT negative for acute stroke, and CXR negative for acute pathology. Patient received multiple fluid boluses with some improvement in BP Patient poor historian and unable to provide details of event, but she denies fevers/chills, headaches, vision changes, CP, palpitations, heart racing, dyspnea, abdominal pain, nausea/vomiting, weakness, numbness/tingling or swelling in extremities. She states she has no issues with ambulation and denies recent falls. She denies urinary symptoms, or changes in bowel habits, stating her last BM was yesterday. ROS is unremarkable except as noted above. 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 Social History Smoking Status: Never Smoker Alcohol Use: none Drug Use: none Marital Status: Occupational Status: retired Multi-Drug Resistant Organisms History of MDRO: No Allergies Coded Allergies: Homatropine (Verified Allergy, Unknown, UNKNOWN, 06/24/17) INFO FROM [facility] Hydrocodone (Verified Allergy, Unknown, UNKNOWN, 06/24/17) INFO FROM [facility] Methylprednisolone (Verified Allergy, Unknown, UNKNOWN, 06/24/17) INFO FROM [facility] Nickel (Verified Allergy, Unknown, RASH, 12/14/16) Zinc (Verified Allergy, Unknown, RASH, 12/14/16) Home Medications Scheduled Aspirin (Aspirin 81), 81 MG PO DAILY Atorvastatin (Lipitor), 40 MG PO DAILY B-Complex W/ C-Min-Fe & Folic (Ferrocite Plus), 2 TABS PO QAM Cholecalciferol (Vitamin D3), 2 TAB PO DAILY Cyanocobalamin (Vitamin B12), 1,000 MCG PO DAILY Pantoprazole (Protonix), 1 TAB PO DAILY Quetiapine Fumarate (Seroquel), 50 MG PO QPM Telmisartan/Hctz (Micardis Hct 80MG/12.5MG), 1 TAB PO DAILY Physical Exam Vital Signs Date Time Temp Pulse Resp B/P (MAP) Pulse Ox O2 Delivery O2 Flow Rate FiO2 06/25/17 00:35 69 16 95 06/25/17 00:31 124/66 06/25/17 00:20 75 14 93 06/25/17 00:05 82 14 94 06/25/17 00:00 129/98 06/24/17 23:39 86 06/24/17 23:35 80 13 93 06/24/17 23:30 84 18 125/67 94 06/24/17 23:15 83 15 06/24/17 23:00 88 13 113/54 06/24/17 22:55 88 20 108/57 95 Room Air 06/24/17 22:45 77 15 06/24/17 21:19 88 14 110/50 95 06/24/17 21:04 97 20 99/49 96 06/24/17 20:31 97 20 112/51 96 06/24/17 20:01 93 14 108/44 94 06/24/17 19:49 96 Room Air 06/24/17 19:44 95 20 109/45 95 06/24/17 19:35 93 06/24/17 19:34 93 20 102/50 94 06/24/17 19:29 36.6 93 20 85/53 93 Room Air General Appearance: WD/WN, no apparent distress Head: normocephalic, atraumatic Eyes: normal inspection, PERRL, EOMI ENT: hearing grossly normal, pharynx normal, + pertinent finding (Extremely dry mucous membranes) Neck: supple, no adenopathy, no JVD Respiratory/Chest: lungs clear, normal breath sounds, no respiratory distress, no accessory muscle use Cardiovascular: regular rate, rhythm, normal peripheral pulses Abdomen/GI: normal bowel sounds, non tender, soft Back: no CVA tenderness Extremities/Musculoskelatal: no calf tenderness, no pedal edema Neurologic/Psych: [place] II-XII nml as tested, no motor/sensory deficits ( strength 5/5 in all 4 extermities), alert, normal mood/affect, + disoriented ( only oriented to person) Skin: normal color, warm/dry, no rash Diagnostics Laboratory Results Results Past 24 Hours Test 06/24/17 19:40 06/24/17 19:50 06/24/17 23:08 Range/Units Urine Color YELLOW Urine Appearance CLEAR CLEAR Urine pH 6.5 4.5-7.5 Urine Specific [place] 1.015 1.000-1.030 Urine Protein NEG NEG Urine Glucose (UA) NEG NEG Urine Ketones NEG NEG Urine Occult Blood NEG NEG Urine Nitrite NEG NEG Urine Bilirubin NEG NEG Urine Urobilinogen NEG NEG Urine Leukocyte Esterase TRACE NEG Urine WBC (Auto) 1-5 0-5 /hpf Urine RBC (Auto) 0-4 0-4 /hpf Urine Hyaline Casts (Auto) 1-5 0-5 /lpf Urine Epithelial Cells (Auto) >30 0-5 /lpf Urine Bacteria (Auto) NEG NEG Sodium Level 138 136-145 mmol/L Potassium Level 3.5 3.5-5.1 mmol/L Chloride Level 105 98-107 mmol/L Carbon Dioxide Level 25 21-32 mmol/L Anion Gap 8.0 3-11 mmol/L Blood Urea Nitrogen 28 7-18 mg/dl Creatinine 1.20 0.60-1.20 mg/dl Est Creatinine Clear Calc Drug Dose 29.6 ml/min Estimated GFR () 47.7 Estimated GFR (Non- 41.2 BUN/Creatinine Ratio 23.4 10-20 Random Glucose 140 70-99 mg/dl Calcium Level 7.9 8.5-10.1 mg/dl Total Bilirubin 0.5 0.2-1 mg/dl Aspartate Amino Transf (AST/SGOT) 10 15-37 U/L Alanine Aminotransferase (ALT/SGPT) 13 12-78 U/L Alkaline Phosphatase 87 45-117 U/L Troponin I < 0.015 0-0.045 ng/ml Total Protein 5.6 6.4-8.2 gm/dl Albumin 2.9 3.4-5.0 gm/dl Globulin 2.7 2.5-4.0 gm/dl Albumin/Globulin Ratio 1.1 0.9-2 White Blood Count 5.89 4.8-10.8 K/uL Red Blood Count 3.92 4.2-5.4 M/uL Hemoglobin 11.8 12.0-16.0 g/dL Hematocrit 35.4 37-47 % Mean Corpuscular Volume 90.3 80-100 fL Mean Corpuscular Hemoglobin 30.1 25-34 pg Mean Corpuscular Hemoglobin Concent 33.3 32-36 g/dl Platelet Count 137 130-400 K/uL Mean Platelet Volume 10.5 7.4-10.4 fL Neutrophils (%) (Auto) 74.7 % Lymphocytes (%) (Auto) 18.8 % Monocytes (%) (Auto) 4.6 % Eosinophils (%) (Auto) 1.4 % Basophils (%) (Auto) 0.3 % Neutrophils # (Auto) 4.40 1.4-6.5 K/uL Lymphocytes # (Auto) 1.11 1.2-3.4 K/uL Monocytes # (Auto) 0.27 0.11-0.59 K/uL Eosinophils # (Auto) 0.08 0-0.5 K/uL Basophils # (Auto) 0.02 0-0.2 K/uL RDW Standard Deviation 44.7 36.4-46.3 fL RDW Coefficient of Variation 13.5 11.5-14.5 % Immature Granulocyte % (Auto) 0.2 % Immature Granulocyte # (Auto) 0.01 0.00-0.02 K/uL Prothrombin Time 11.4 9.0-12.0 SECONDS Prothromb Time International Ratio 1.1 0.9-1.1 Activated Partial Thromboplast Time 23.1 21.0-31.0 SECONDS Partial Thromboplastin Ratio 0.9 Lactic Acid Level 0.6 0.4-2.0 mmol/L Microbiology Results 06/24/17 Blood Culture, Received Pending 06/24/17 Blood Culture, Received Pending EKG Normal sinus rhythm, 90bpm Left axis deviation Left bundle branch block QTc 533 Impression Assessment and Plan 87 year old female from [facility] presents to hospital with 5 minute episode of lack of response/glazed look followed by period of lethargy and hypotension ( SBP 60s). Patient previously admitted to hospital with right frontotemporal stroke in December 2016. Unresponsive episode - Concern for TIA vs seizures vs cardiac event - Monitor in telemetry Hypotension - evidence of dehydration - IVF NSS @ 100cc/hr - Hold home anti-hypertensives - Check orthostatic BP - Trend BMP Previous CVA - Continue Aspirin, statin GERD: - Continue pantoprazole Dementia/Mood - Continue Seroquel DVT prophylaxis: - SCDs Resident Physician Supervision Note: I was present with Dr. Mendiola during the history and exam. I discussed the case with the resident and agree with the findings and plan as documented in the note. Any exceptions or clarifications are listed here: 87 y/o F Hx HTN, CVA, dementia - presents following a few minutes of unresponsiveness - hypotension was reported at the time as well. She has no recollection of events. There was no reported LOC or seizure activity. Pt appears dehydrated on admission. OE AAO x 1 S1,2 R CTA - poor effort NT, ND No discernible focal deficits P: Monitor on telemetry overnight - IVF provided Cont ASA and Statin Hold Micardis AM due to reported hypotension and dehydration An extesive neuro.cardio workup may not be beneficial at present considering her baseline functional status and lack of focal deficits. If her unresponsiveness recurs would consider further w/u and a neuro consult. Documented By: Nakul Miles Level of Care Telemetry Resuscitation Status FULL RESUSCITATION VTE Prophylaxis VTE Risk Assessment Done? Y/N: Yes Risk Level: Moderate Given or contraindicated: SCD's Social Service Consult Lives in Shelter Note Total Time: Critical Care 30 - 74 minutes Resident Tracking Resident Involvement: Resident Care Provided Care Provided: Adult Hospital Medicine
[2017-06-25] MEDS ORDERED: ACETAMINOPHEN 325 MG TAB PO PRN (02:30)
[2017-06-25] MEDS ORDERED: NITROGLYCERIN 0.4 MG SL PER TAB CHARGE SL PRN (02:30)
[2017-06-25] MEDS ORDERED: ONDANSETRON INJ 2 MG/ML 2 ML VIAL IV PRN (02:30)
[2017-06-25] MEDS ORDERED: POLYETHYLENE (MIRALAX) 17 GM PACK PO PRN (02:30)
[2017-06-25] MEDS ORDERED: MAGNESIUM HYDROXIDE SUSP 30 ML UDC PO PRN (02:30)
[2017-06-25] MEDS ORDERED: ALUMINUM/MAGNESIUM/SIMETH (MAALOX MAX) 30 ML UDC PO PRN (02:30)
[2017-06-25] MEDS ORDERED: SODIUM CHLORIDE 0.9% 1000ML 1,000 ML IV SCH (03:45)
[2017-06-25 04:55] VITALS: BP 141/74; PULSE 88; TEMP 36.8; O2SAT 99; Ht 162.6 cm; Wt 62.0 kg
[2017-06-25] MEDS ORDERED: IV FLUIDS COMPLETED PRN (05:15)
--- NOTE | 2017-06-25 06:22 | DIAGNOSTIC IMAGING REPORT ---
HEAD WITHOUT CONTRAST (CT) CLINICAL HISTORY: 87 years-old Female with AMS. Acute syncope with history of prior stroke TECHNIQUE: Multiple axial CT images of the head were obtained without contrast. A dose lowering technique was utilized adhering to the principles of ALARA. CT DOSE: 614.27 mGy.cm COMPARISON: CT head 01/04/2017, MRI brain 12/15/2016. FINDINGS: No acute intracranial hemorrhage, midline shift, intracranial mass, hydrocephalus, territorial ischemia or abnormal extra-axial collection. Moderate atrophy with ex vacuo ventriculomegaly. Chronic microvascular ischemic changes. Areas of encephalomalacia noted within the right frontal and temporal lobes from prior MCA distribution infarct. The calvarium is intact. The paranasal sinuses, mastoid air cells, and middle ear cavities are clear. IMPRESSION: No acute intracranial abnormality. The above report was generated using voice recognition software. It may contain grammatical, syntax or spelling errors. Electronically signed by: James Angelo M.D. 06/25/2017 6:21 AM Dictated Date/Time: 06/25/2017 6:18 AM
[2017-06-25 06:55] LABS: HEMATOCRIT 34.3 % (37-47); HEMOGLOBIN 11.5 g/dL (12.0-16.0); MEAN CELL VOLUME 90.3 fL (80-100); MEAN CORPUSCULAR HEMOGLOBIN 30.3 pg (25-34); MEAN CORPUSCULAR HGB CONC 33.5 g/dl (32-36); MEAN PLATELET VOLUME 10.8 fL (7.4-10.4); PLATELET COUNT 143 K/uL (130-400); RED CELL DISTRIBUTION WIDTH CV 13.6 % (11.5-14.5); RED CELL DISTRIBUTION WIDTH SD 45.1 fL (36.4-46.3); WHITE BLOOD COUNT 5.15 K/uL (4.8-10.8)
[2017-06-25] MEDS: ATORVASTATIN 40 MG TAB PO SCH (07:22)
[2017-06-25] MEDS: ASPIRIN 81 MG ECTAB PO SCH (07:22)
[2017-06-25] MEDS: CHOLECALCIFEROL 1000 INTER.UNIT TAB PO SCH (07:22)
[2017-06-25] MEDS: PANTOprazole SOD 40 MG TAB PO SCH (07:22)
[2017-06-25 07:28] LABS: CALCIUM 8.4 mg/dl (8.5-10.1); CREATININE 0.99 mg/dl (0.60-1.20); PHOSPHORUS 2.9 mg/dl (2.5-4.9)
--- NOTE | 2017-06-25 09:00 | Progress Note ---
Progress Note Date of Service Jun 25, 2017. Progress Note 87 y/o F Hx HTN, CVA, dementia - presents following a few minutes of unresponsiveness - hypotension was reported at the time as well. She has no recollection of events. There was no reported LOC or seizure activity. Pt appears dehydrated on admission. OE AAO x 2 S1,2 R CTA b/l, no wheezing, good air entry b/l NT, ND, soft , BS No discernible focal deficits, no motor deficit P:Unresponsive episode - Concern for TIA vs seizures vs cardiac event less likely workup negative/ neurology referral - Monitor in telemetry Hypotension - resolved - Decrease IVF NSS @ 50cc/hr - If BP trended upward resume Micardis - Check orthostatic BP one time Previous CVA - Continue Aspirin, statin GERD: - Continue pantoprazole Dementia/Mood - Continue Seroquel DVT prophylaxis: - SCDs
[2017-06-25] MEDS ORDERED: NURSING VERBAL MED ORDER ONE ×2 (09:15→16:45)
[2017-06-25] MEDS: MAGNESIUM OXIDE 400 MG TAB PO SCH ×2 (09:49→21:06)
--- NOTE | 2017-06-25 10:48 | Neurology Consultation ---
Neurology Consultation Date of Consultation: Jun 25, 2017. Attending Physician: Nakul Miles M.D. Primary Care Physician: Cyndi Mitchell Reason for Consultation: Patient is an 87-year-old, who was asked to see the request of Dr. Palacio, for neurologic consultation regarding unresponsive episode yesterday. History of Present Illness Source: patient, family, caregiver, hospital records I 1st saw this patient in December of 2016. At that time, she had a relatively small right frontal temporal acute infarct, manifested mostly by some mental status changes. At that time, MRI of the brain showed some mild to moderate underlying old small vessel ischemia with the new right frontal temporal stroke. MR angiography of the neck was unremarkable. MR angiography of the head showed some cutoff in the sylvian branch of the right middle cerebral artery. She has a history of hypertension and diabetes and was a former smoker. She was discharged on 81 milligram aspirin tablet daily. Since that time she has done fairly well. She has an underlying dementia which is about the same over the last 6 months. It is mostly short-term memory but can include some long-term memory. She lives at [facility] (in an apartment) with her . According to her son, who is present at bedside today as well as her , she does not eat very much and isn't drinking fluids. Yesterday, she was feeling very well with no colds, flu, dizziness, headache, or illness. She she ate dinner in the dining room and they were finished around 1830 hours. She had no complaint and then stood up to go back to the apartment and she had the sudden onset of some confusion and foggy thinking. She did not complain of pain or lightheadedness but did not really speak at all. She sat back down in the chair with help and sat there not speaking but not slumping or falling. She did not stiffen, twitch, or jerk. She did not wet herself or bite her tongue. Nursing personnel came and by 5 minutes she seem to speak again and be more herself. She did not remember what happened and had no further issues or problems. The EMS came and brought her to the ER. She arrived at 1929 hours with a temperature of 36.6, pulse 93, respiratory rate 20, blood pressure 85/55 and O2 saturation 93 percent. She was described as lethargic but had no focal abnormalities or significant complaints. Chest x-ray shows some cardiomegaly which was old. CT scan of the head was unremarkable for acute changes. Laboratory studies were unremarkable including urinalysis and Chem profile, although she had some mild anemia on CBC. Nursing reports no events overnight and she slept fine. She has no complaints this morning. The patient denies balance problems, incontinence, numbness, weakness, pain, headaches, dizziness, vision problems, speech problems, mood issues, or sleep problems. Past Medical/Surgical History Medical Problems: (1) Altered mental state Status: Acute (2) CVA (cerebral vascular accident) Status: Acute (3) Elevated brain natriuretic peptide (BNP) level Status: Acute (4) TIA (transient ischemic attack) Status: Acute Hypertension Diabetes Family History Mother around age 78 and father age 67. She cannot tell me any specific information about her medical problems are why they . Social History Patient quit cigarette smoking in 1995. She only rarely has a drink of alcohol and not much recently. She worked as a typing secretary at [employer] and then after moving to [place] 42 years ago, she worked teaching visits education at [employer]. She retired in her mid 80s. Smoking Status: Former smoker Smokeless Tobacco Use: No Alcohol Use: none Drug Use: none Marital Status: Housing Status: lives with significant other Occupation Status: retired Allergies Coded Allergies: Homatropine (Verified Allergy, Unknown, UNKNOWN, 06/24/17) INFO FROM [facility] Hydrocodone (Verified Allergy, Unknown, UNKNOWN, 06/24/17) INFO [facility] Methylprednisolone (Verified Allergy, Unknown, UNKNOWN, 06/24/17) INFO [facility] Nickel (Verified Allergy, Unknown, RASH, 12/14/16) Zinc (Verified Allergy, Unknown, RASH, 12/14/16) Current Inpatient Medications Current Inpatient Medications Medications (Trade) Dose Ordered Sig/Ekaterina Route Start Time Stop Time Status Last Admin Dose Admin Acetaminophen (Tylenol Tab) 650 mg Q4H PRN PO 06/25/17 02:30 07/25/17 02:29 Al Hydrox/Mg Hydrox/Simethicone (Maalox Max Susp) 15 ml Q4H PRN PO 06/25/17 02:30 07/25/17 02:29 Magnesium Hydroxide (Milk Of Magnesia Susp) 30 ml Q12H PRN PO 06/25/17 02:30 07/25/17 02:29 Ondansetron HCl (Zofran Inj) 4 mg Q6H PRN IV 06/25/17 02:30 07/25/17 02:29 Nitroglycerin (Nitrostat Tab) 0.4 mg UD PRN SL 06/25/17 02:30 07/25/17 02:29 Polyethylene (Miralax Powder Packet) 17 gm DAILY PRN PO 06/25/17 02:30 07/25/17 02:29 Sodium Chloride 1,000 ml @ 50 mls/hr Q20H IV 06/25/17 03:45 07/25/17 03:44 06/25/17 04:08 100 MLS/HR Aspirin (Ecotrin Tab) 81 mg DAILY PO 06/25/17 09:00 07/25/17 08:59 06/25/17 07:22 81 MG Atorvastatin Calcium (Lipitor Tab) 40 mg DAILY PO 06/25/17 09:00 07/25/17 08:59 06/25/17 07:22 40 MG Cholecalciferol (Vitamin D Tab) 2,000 inter.unit DAILY PO 06/25/17 09:00 07/25/17 08:59 06/25/17 07:22 2,000 INTER.UNIT Pantoprazole Sodium (Protonix Tab) 40 mg DAILY PO 06/25/17 09:00 07/25/17 08:59 06/25/17 07:22 40 MG Quetiapine Fumarate (seroQUEL TAB) 50 mg QPM PO 06/25/17 21:00 07/25/17 20:59 Miscellaneous (Iv Fluids Completed) 1 ea PRN PRN N/A 06/25/17 05:15 06/25/18 05:14 Magnesium Oxide (Mag-Ox Tab) 400 mg BID PO 06/25/17 09:00 07/25/17 08:59 06/25/17 09:49 400 MG Review of Systems Constitutional: + fatigue, No fever, No weakness Eyes: No worsening of vision, No diplopia ENT: No tinnitus, No trouble swallowing Respiratory: No cough, No shortness of breath Cardiovascular: No chest pain, No palpitations Abdomen: No pain, No nausea Musculoskeletal: No joint pain, No muscle pain Genitourinary - Female: No dysuria, No urinary incontinence Neurologic: + memory loss, No weakness, No numbness/tingling, No vertigo, No balance problems Psychiatric: No depression symptoms, No anxiety Endocrine: + fatigue Hematologic / Lymphatic: No abnormal bleeding/bruising Integumentary: No rash Allergic / Immunologic: No hives Physical Exam Vital Signs (Past 24 Hrs): Date Time Temp Pulse Resp B/P (MAP) Pulse Ox O2 Delivery O2 Flow Rate FiO2 06/25/17 04:55 36.8 88 18 141/74 99 Room Air 06/25/17 04:00 Room Air 06/25/17 03:00 80 13 131/64 90 06/25/17 02:55 72 93 06/25/17 02:40 78 95 06/25/17 02:31 107/61 06/25/17 02:25 65 14 90 06/25/17 02:10 68 13 95 06/25/17 02:01 114/67 06/25/17 01:55 71 90 06/25/17 01:40 69 95 06/25/17 01:30 122/71 06/25/17 01:25 85 14 93 06/25/17 01:10 84 15 95 06/25/17 01:01 115/92 06/25/17 00:55 73 17 06/25/17 00:40 70 14 96 06/25/17 00:35 69 16 95 06/25/17 00:31 124/66 06/25/17 00:20 75 14 93 06/25/17 00:05 82 14 94 06/25/17 00:00 129/98 06/24/17 23:39 86 06/24/17 23:35 80 13 93 06/24/17 23:30 84 18 125/67 94 06/24/17 23:15 83 15 06/24/17 23:00 88 13 113/54 06/24/17 22:55 88 20 108/57 95 Room Air 06/24/17 22:45 77 15 06/24/17 21:19 88 14 110/50 95 06/24/17 21:04 97 20 99/49 96 06/24/17 20:31 97 20 112/51 96 06/24/17 20:01 93 14 108/44 94 06/24/17 19:49 96 Room Air 06/24/17 19:44 95 20 109/45 95 06/24/17 19:35 93 06/24/17 19:34 93 20 102/50 94 06/24/17 19:29 36.6 93 20 85/53 93 Room Air Patient is right-handed. The patient is awake and alert. Speech is normal without aphasia or dysarthria. Mood and affect are normal and appropriate. She is oriented to her age and the town she lives in and the fact that she is in a hospital. She is not sure how she got here and cannot remember any details of yesterday. She knew the year and the day of the week but not the month or date. She knew left from right and very simple calculations. Long and short-term memory are impaired. The discs are sharp with positive venous pulsations. There are no exudates, hemorrhages, or blood vessel changes seen. Pupils are 3mm bilaterally and reactive to light. Extraocular eye muscles are intact without nystagmus. Visual acuity and visual fraga seem normal grossly to confrontation. There are no deficits to sensation of the face bilaterally. Corneal reflexes are positive bilaterally. Facial strength and symmetry is normal bilaterally. Hearing seems intact grossly to voice. Palate moves well without asymmetry. There is normal sternocleidomastoid and trapezius strength bilaterally. Tongue is midline with good strength bilaterally. Neck is with full range of motion without discomfort. There are no cervical bruits. There are no cranial or ocular bruits. Heart is without murmur. Cervical, thoracic, and lumbar spine are nontender to palpation. Gait is cautious but narrow base. Stance is normal with eyes opened and she has no dizziness or symptomatology was sitting up or standing. With outstretched arms there is no drift. There are no resting, postural, or action tremors. There is no ataxia with [id number] testing. There is good facility in the hands. There are no abnormal involuntary movements noted. Motor strength is 5/5 diffusely in the arms bilaterally including deltoids, biceps, brachioradialis, wrist flexors and extensors, jewel setter, and intrinsic hand muscles. Motor strength is 5/5 diffusely in the legs bilaterally including hip flexors, quadriceps, hamstring, gastrocnemius, tibialis anterior, tibialis posterior, and peroneii muscles bilaterally. Toe extensors are normal and there is good bulk in the extensor digitorum brevis muscle bilaterally. The limbs have good tone without rigidity or spasticity, and there is no atrophy noted. Muscle bulk is normal, there is no tenderness, no myotonia noted to percussion, and no fasciculations seen. Sensory examination is intact to pin and touch throughout all four limbs. Reflexes are 1/4 in the biceps, triceps, brachioradialis, quadriceps, and Achilles tendons bilaterally. Toes are downgoing with plantar stimulation bilaterally. Peripheral pulses are present and of normal quality distally in all four limbs. There is no peripheral edema noted. Laboratory Results Past 24 Hours: 06/25/17 06:25 06/25/17 06:25 Test 06/24/17 19:40 06/24/17 19:50 06/24/17 23:08 06/25/17 06:25 Urine Color YELLOW Urine Appearance CLEAR (CLEAR) Urine pH 6.5 (4.5-7.5) Urine Specific [place] 1.015 (1.000-1.030) Urine Protein NEG (NEG) Urine Glucose (UA) NEG (NEG) Urine Ketones NEG (NEG) Urine Occult Blood NEG (NEG) Urine Nitrite NEG (NEG) Urine Bilirubin NEG (NEG) Urine Urobilinogen NEG (NEG) Urine Leukocyte Esterase TRACE (NEG) Urine WBC (Auto) 1-5 /hpf (0-5) Urine RBC (Auto) 0-4 /hpf (0-4) Urine Hyaline Casts (Auto) 1-5 /lpf (0-5) Urine Epithelial Cells (Auto) >30 /lpf (0-5) Urine Bacteria (Auto) NEG (NEG) Total Bilirubin 0.5 mg/dl (0.2-1) Aspartate Amino Transf (AST/SGOT) 10 U/L (15-37) Alanine Aminotransferase (ALT/SGPT) 13 U/L (12-78) Alkaline Phosphatase 87 U/L (45-117) Troponin I < 0.015 ng/ml (0-0.045) Total Protein 5.6 gm/dl (6.4-8.2) Albumin 2.9 gm/dl (3.4-5.0) Globulin 2.7 gm/dl (2.5-4.0) Albumin/Globulin Ratio 1.1 (0.9-2) Immature Granulocyte % (Auto) 0.2 % White Blood Count 5.89 K/uL (4.8-10.8) Red Blood Count 3.92 M/uL (4.2-5.4) 3.80 M/uL (4.2-5.4) Hemoglobin 11.8 g/dL (12.0-16.0) Hematocrit 35.4 % (37-47) Mean Corpuscular Volume 90.3 fL (80-100) 90.3 fL (80-100) Mean Corpuscular Hemoglobin 30.1 pg (25-34) 30.3 pg (25-34) Mean Corpuscular Hemoglobin Concent 33.3 g/dl (32-36) 33.5 g/dl (32-36) Platelet Count 137 K/uL (130-400) Mean Platelet Volume 10.5 fL (7.4-10.4) 10.8 fL (7.4-10.4) Neutrophils (%) (Auto) 74.7 % Lymphocytes (%) (Auto) 18.8 % Monocytes (%) (Auto) 4.6 % Eosinophils (%) (Auto) 1.4 % Basophils (%) (Auto) 0.3 % Neutrophils # (Auto) 4.40 K/uL (1.4-6.5) Lymphocytes # (Auto) 1.11 K/uL (1.2-3.4) Monocytes # (Auto) 0.27 K/uL (0.11-0.59) Eosinophils # (Auto) 0.08 K/uL (0-0.5) Basophils # (Auto) 0.02 K/uL (0-0.2) Immature Granulocyte # (Auto) 0.01 K/uL (0.00-0.02) Prothrombin Time 11.4 SECONDS (9.0-12.0) Prothromb Time International Ratio 1.1 (0.9-1.1) Activated Partial Thromboplast Time 23.1 SECONDS (21.0-31.0) Partial Thromboplastin Ratio 0.9 Lactic Acid Level 0.6 mmol/L (0.4-2.0) RDW Standard Deviation 45.1 fL (36.4-46.3) RDW Coefficient of Variation 13.6 % (11.5-14.5) Anion Gap 7.0 mmol/L (3-11) Est Creatinine Clear Calc Drug Dose 35.9 ml/min Estimated GFR () 60.2 Estimated GFR (Non- 52.0 BUN/Creatinine Ratio 21.9 (10-20) Calcium Level 8.4 mg/dl (8.5-10.1) Phosphorus Level 2.9 mg/dl (2.5-4.9) Magnesium Level 1.7 mg/dl (1.8-2.4) Chemistry Specimen Hemolysis Impression 1. 5 minutes episode of altered responsiveness yesterday after standing up. On exam she has no focal neurologic signs, meningeal signs, or delirium/acute encephalopathy. She does have dementia which is chronic. The etiology of her episode was likely not stroke , although I cannot entirely exclude a mini-stroke. There was no seizure activity for this witnessed event and I doubt this was due to a seizure I am more inclined to believe that this is hypotension/orthostasis resulting in decreased CHICK[employer] perfusion and symptomatology. After standing she was kept sitting which prolonged the hypotensive affect. By the time she got to the emergency room she was still hypotensive and there is evidence that she is not eating and drinking well. 2. Dementia. This is likely a vascular dementia and is stable. 3. History of anemia, stable 4. History of hypertension and diabetes. Currently she has hypotension with this is markedly improved with fluids since admission. Plan 1. MRI of the brain without contrast to evaluate for small stroke. 2. Continue 81 milligram aspirin tablet for now. 3. Encourage p.o. intake including fluids. If the MRI is unremarkable, I will likely have no other specific neurologic testing or treatment recommendations to make. She can follow up with us as an outpatient if desired. I spoke with Dr. Palacio regarding this case including differential diagnosis and treatment options.
--- NOTE | 2017-06-25 11:43 | DIAGNOSTIC IMAGING REPORT ---
BRAIN WITHOUT CONTRAST HISTORY: 87 years-old Female rule out acute stroke acute strokelike symptoms COMPARISON: CT head 06/24/2017, MRI brain 12/15/2016 TECHNIQUE: Multiplanar multisequence MRI of the brain was obtained without contrast. FINDINGS: The large [id number] talkback host localizer images demonstrate no gross abnormality. There is no restricted diffusion to suggest acute infarction. The midline structures including the corpus callosum, brainstem, optic chiasm, pituitary and pineal glands are unremarkable in the sagittal T1 series. No cerebellar tonsillar herniation. Degenerative changes are seen within the imaged cervical spine. There is no acute intracranial hemorrhage, midline shift, abnormal extra-axial collections, hydrocephalus or intracranial mass identified. Moderate appearing brain atrophy with ex vacuo ventriculomegaly. Multifocal areas of T2/FLAIR prolongation again seen within the deep, subcortical and periventricular white matter of the cerebral hemispheres bilaterally compatible with chronic microvascular ischemic changes. There is mild encephalomalacia and gliosis associated with areas of remote infarction involving the right frontal and temporal lobes in the region of prior MCA distribution infarct. Major flow voids at the level of the skull base appear to be patent. Trace bilateral mastoid effusions. Paranasal sinuses appear generally clear. The scalp, calvarium and soft tissues are unremarkable. IMPRESSION: 1. No acute intracranial abnormality identified. No evidence of acute infarction or intracranial hemorrhage. 2. Atrophy with chronic microvascular ischemic changes. Mild encephalomalacia and gliosis noted within the right frontal and temporal lobes within the region of remote MCA distribution infarct. 3. Trace bilateral mastoid effusions. The above report was generated using voice recognition software. It may contain grammatical, syntax or spelling errors. Electronically signed by: James Angelo M.D. 06/25/2017 11:42 AM Dictated Date/Time: 06/25/2017 11:34 AM
[2017-06-25 15:19] VITALS: BP 148/84; PULSE 101; TEMP 36.5; O2SAT 96
[2017-06-25 19:21] VITALS: BP 130/77; PULSE 98; TEMP 36.7; O2SAT 95
[2017-06-25] MEDS ORDERED: QUETIAPINE FUMARATE 25 MG TAB PO SCH (21:00)
[2017-06-25 23:10] VITALS: BP 151/79; PULSE 104; TEMP 36.7; O2SAT 93
[2017-06-26 04:15] VITALS: BP 131/73; PULSE 87; O2SAT 95
[2017-06-26 05:29] VITALS: TEMP 36.7
[2017-06-26 07:07] VITALS: BP 137/67; PULSE 100; TEMP 36.7; O2SAT 92
[2017-06-26] MEDS: ASPIRIN 81 MG ECTAB PO SCH (07:28)
[2017-06-26] MEDS: ATORVASTATIN 40 MG TAB PO SCH (07:28)
[2017-06-26] MEDS: CHOLECALCIFEROL 1000 INTER.UNIT TAB PO SCH (07:28)
[2017-06-26] MEDS: MAGNESIUM OXIDE 400 MG TAB PO SCH (07:28)
[2017-06-26] MEDS: PANTOprazole SOD 40 MG TAB PO SCH (07:29)
--- NOTE | 2017-06-26 10:34 | Discharge Instructions ---
Discharge Instructions Date of Service Jun 26, 2017. Admission Reason for Admission: Unresponsive Episode Discharge Discharge Diagnosis / Problem: an episode of unresponsiveness likely from low blood pressure Discharge Goals Goal(s): Decrease discomfort Activity Recommendations Activity Limitations: resume your previous activity Lifting Limitations: none . Instructions / Follow-Up Instructions / Follow-Up please check your blood pressure once a day (change the time every day ) record date, time, blood pressure and heart rate do not be afraid if it fluctuates as long as you have no abnormal symptoms after recording one week data go to your primary care physician and show him the data if your systolic pressure is >180 or < 80 or if you have any symptoms come to ER Current Hospital Diet Patient's current hospital diet: Regular Diet Discharge Diet Recommended Diet: Regular Diet Pending Studies Studies pending at discharge: no Medical Emergencies . Who to Call and When: Medical Emergencies: If at any time you feel your situation is an emergency, please call 911 immediately. . Non-Emergent Contact Non-Emergency issues call your: Primary Care Provider . . "Provider Documentation" section prepared by Sachi Capellan. . VTE Core Measure Inpt VTE Proph given/why not?: Unfractionated heparin SQ, SCD's
[2017-06-26 10:43] VITALS: BP 137/67; PULSE 100; TEMP 36.7; O2SAT 92
--- NOTE | 2017-06-26 11:25 | Discharge Summary ---
Discharge Summary Date of Service Jun 26, 2017. Discharge Summary Admission Date: Jun 25, 2017 at 02:26 Discharge Date: Jun 26, 2017 Discharge Disposition: Home Principal Diagnosis: unresponssiveness episode // presyncope likely secondary to low blood press Problems/Secondary Diagnoses: HTN, currently hypotensive, BP medication (micardis) was stopped Hx of CVA Dyslipidemia underlying mild dementia Medication Reconciliation Continued Medications: Aspirin (Aspirin 81) 81 Mg Tab 81 MG PO DAILY Atorvastatin (Lipitor) 40 Mg Tab 40 MG PO DAILY, TAB B-Complex W/ C-Min-Fe & Folic (Ferrocite Plus) 1 Tab Tab 2 TABS PO QAM Cholecalciferol (Vitamin D3) 1,000 Unit Tab 2 TAB PO DAILY for 30 Days, #60 TAB 5 Refills Cyanocobalamin (Vitamin B12) 1,000 Mcg Tab 1000 MCG PO DAILY Pantoprazole (Protonix) 40 Mg Tab 1 TAB PO DAILY for 30 Days, #30 TAB 3 Refills Quetiapine Fumarate (Seroquel) 50 Mg Tab 50 MG PO QPM, TAB Discontinued Medications: Telmisartan/Hctz (Micardis Hct 80MG/12.5MG) Tab 1 TAB PO DAILY Discharge Exam Review of Systems: Constitutional: No fever, No chills, No sweats, No weight loss, No weakness , No fatigue, No problem reported Eyes: No worsening of vision, No eye pain, No redness, No discharge, No diplopia, No problem reported ENT: No hearing loss, No unusual epistaxis, No nasal symptoms, No sore throat, No tinnitus, No dental problems, No trouble swallowing, No problem reported Respiratory: No cough, No sputum, No wheezing, No shortness of breath, No dyspnea on exertion, No dyspnea at rest, No hemoptysis, No problem reported Cardiovascular: No chest pain, No orthopnea, No PND, No edema, No claudication, No palpitations, No problem reported Abdomen: No pain, No nausea, No vomiting, No diarrhea, No constipation, No GI bleeding, No problem reported Musculoskeletal: No joint pain, No muscle pain, No swelling, No calf pain, No problem reported Genitourinary - Female: No dysuria, No urinary frequency, No urinary urgency , No urinary incontinence, No urinary retention, No hematuria, No dysmenorrhea, No menorrhagia, No metrorrhagia, No rash, No vaginal bleeding, No vaginal discharge, No vaginal itching, No vulvodynia, No , No problem reported Genitourinary - Male: No hematuria, No dysuria, No urinary frequency, No urinary urgency, No urinary hesitancy, No urinary retention, No urinary incontinence, No penile discharge, No lesions, No impotence, No problem reported Neurologic: No memory loss, No paralysis, No weakness, No numbness/tingling , No vertigo, No balance problems, No problem reported Psychiatric: No depression symptoms, No anhedonism, No anxiety, No insomnia , No substance abuse, No problem reported Endocrine: No fatigue, No excessive thirst, No excessive urination, No problem reported Hematologic / Lymphatic: No abnormal bleeding/bruising, No clotting problems , No swollen lymph nodes, No night sweats, No problem reported Integumentary: No rash, No itch, No new/changing skin lesions, No color change, No bleeding, No problem reported Physical Exam: General Appearance: WD/WN, no apparent distress Eyes: normal inspection, EOMI ENT: normal ENT inspection, hearing grossly normal Neck: supple Respiratory/Chest: chest non-tender, lungs clear, normal breath sounds, no respiratory distress, no accessory muscle use Cardiovascular: regular rate, rhythm, no edema, no gallop, no JVD, no murmur Abdomen / GI: normal bowel sounds, non tender, soft, no organomegaly, no pulsatile mass Extremities: normal inspection, no calf tenderness, no pedal edema Neurologic/Psychiatric: occ med physician II-XII nml as tested, no motor/sensory deficits , alert, normal mood/affect, normal reflexes Skin: normal color, warm/dry, no rash Hospital Course Patient was admitted after experiencing an episode of unresponsiveness while she was with her . On admission she was found to have a low blood pressure 88/44 She takes Micardis at home 80/12.5 Blood pressure medications were stopped here. Neurology consult obtained. MRI was done and showed no acute event. After holding the blood pressure medicine, her blood pressure normalized. All her symptoms resolved after her blood pressure normalized. Today she was within acceptable medical stability for discharge. Her blood pressure medicine will Be kept on hold She was instructed to please check your blood pressure once a day (change the time every day ) record date, time, blood pressure and heart rate do not be afraid if it fluctuates as long as you have no abnormal symptoms after recording one week data go to your primary care physician and show him the data if your systolic pressure is >180 or < 80 or if you have any symptoms come to ER She will follow-up with her primary care physician in one week Total Time Spent: Less than 30 minutes This includes examination of the patient, discharge planning, medication reconciliation, and communication with other providers. Discharge Instructions Please refer to the electronic Patient Visit Report (Discharge Instructions) for additional information.
== END 2017-06-26 10:56 | disposition home or self-care (01) ==
LOC: EDBD 19:19 → C.EDB 19:21 → C.MED 06-25 02:26 → ENRESERV 06-25 02:39
PROVIDERS: ADMIT Internal Medicine; ATTEND Internal Medicine
DX: R41.82 Altered mental status, unspecified (principal); R55 Syncope and collapse; I10 Essential (primary) hypertension; Z86.73 Personal history of transient ischemic attack (TIA), and cerebral infarction without residual deficits; E78.5 Hyperlipidemia, unspecified; F03.90 Unspecified dementia, unspecified severity, without behavioral disturbance, psychotic disturbance, mood disturbance, and anxiety; Z79.82 Long term (current) use of aspirin; Z79.899 Other long term (current) drug therapy

== ENCOUNTER → 2017-10-18 | Outpatient (CLI) | payer BC ==
[~2017-10-18] MED LIST changes: +ATOR-24 PO; +B COTAB PO; -LPT40 PO; +QUET1TAB32 PO; -TELM80TA6 PO
[2017-10-18 09:02] LABS: HEMATOCRIT 40.4 % (37-47); HEMOGLOBIN 13.1 g/dL (12.0-16.0); MEAN CELL VOLUME 88.4 fL (80-100); MEAN CORPUSCULAR HEMOGLOBIN 28.7 pg (25-34); MEAN CORPUSCULAR HGB CONC 32.4 g/dl (32-36); MEAN PLATELET VOLUME 11.7 fL (7.4-10.4); PLATELET COUNT 122 K/uL (130-400); RED CELL DISTRIBUTION WIDTH SD 45.2 fL (36.4-46.3); WHITE BLOOD COUNT 3.94 K/uL (4.8-10.8)
[2017-10-18 09:09] LABS: ALBUMIN 2.9 gm/dl (3.4-5.0); ALT/SGPT 14 U/L (12-78); AST/SGOT 13 U/L (15-37); BLOOD UREA NITROGEN 21 mg/dl (7-18); CALCIUM 8.4 mg/dl (8.5-10.1); CARBON DIOXIDE 28 mmol/L (21-32); CREATININE 1.09 mg/dl (0.60-1.20); GLUCOSE 98 mg/dl (70-99); POTASSIUM 3.7 mmol/L (3.5-5.1); SODIUM 144 mmol/L (136-145)
[2017-10-18 09:12] LABS: ALKALINE PHOSPHATASE 77 U/L (45-117); TOTAL PROTEIN 5.8 gm/dl (6.4-8.2)
== END ==
LOC: C.LABFOXAC 08:28
PROVIDERS: ATTEND Internal Medicine
DX: R63.4 Abnormal weight loss (principal)

== ENCOUNTER → 2017-11-20 | Outpatient (CLI) | payer BC ==
[2017-11-20 09:13] LABS: HEMATOCRIT 41.1 % (37-47); HEMOGLOBIN 13.5 g/dL (12.0-16.0); MEAN CORPUSCULAR HEMOGLOBIN 28.9 pg (25-34); MEAN CORPUSCULAR HGB CONC 32.8 g/dl (32-36); MEAN PLATELET VOLUME 11.4 fL (7.4-10.4); PLATELET COUNT 143 K/uL (130-400); RED CELL DISTRIBUTION WIDTH CV 14.4 % (11.5-14.5); RED CELL DISTRIBUTION WIDTH SD 46.2 fL (36.4-46.3); WHITE BLOOD COUNT 4.57 K/uL (4.8-10.8)
[2017-11-20 09:24] LABS: BLOOD UREA NITROGEN 16 mg/dl (7-18); CALCIUM 8.8 mg/dl (8.5-10.1); CARBON DIOXIDE 24 mmol/L (21-32); GLUCOSE 102 mg/dl (70-99); POTASSIUM 3.4 mmol/L (3.5-5.1); SODIUM 142 mmol/L (136-145)
== END ==
LOC: C.LABFOXAC 07:59
PROVIDERS: ATTEND Internal Medicine
DX: Z01.89 Encounter for other specified special examinations (principal)

== ENCOUNTER → 2017-12-26 | Outpatient (CLI) | payer BC ==
[2017-12-26 10:04] LABS: THYROXINE (T4) 7.8 mcg/dl (4.5-10.9)
--- NOTE | 2018-01-04 07:59 | CODING QUERY NO DIAGNOSIS ---
TREATMENT RENDERED WITHOUT A DIAGNOSIS To promote full compliance with coding requirements relating to patient care, physician participation is requested in all cases of floor hand uncertainty. Please assist us with providing a diagnosis/symptom for the test(s) below: A diagnosis/symptom was not documented on your Order. A valid diagnosis/symptom is required to bill all insurances. Please remember that we are unable to code a diagnosis of rule out, probable, possible, questionable, or suspected. Tests that require a diagnosis: DOS: 12/26/17 (Attached form missing diagnosis) * T3 DIAGNOSIS: * T4 DIAGNOSIS: * TSH DIAGNOSIS: Provider Signature: Date: Thank you Ila Liz Health Information Management Once completed, please kindly fax back to [phone] For questions please call [phone]
== END | disposition home or self-care (01) ==
LOC: C.LABFOXAC 08:54
PROVIDERS: ATTEND Internal Medicine
DX: R63.4 Abnormal weight loss (principal)

== ENCOUNTER → 2018-01-01 | Outpatient (CLI) | payer BC ==
[2018-01-01 09:59] LABS: HEMATOCRIT 39.6 % (37-47); HEMOGLOBIN 12.8 g/dL (12.0-16.0); MEAN CELL VOLUME 88.8 fL (80-100); MEAN CORPUSCULAR HEMOGLOBIN 28.7 pg (25-34); MEAN CORPUSCULAR HGB CONC 32.3 g/dl (32-36); MEAN PLATELET VOLUME 12.6 fL (7.4-10.4); PLATELET COUNT 146 K/uL (130-400); RED CELL DISTRIBUTION WIDTH CV 14.1 % (11.5-14.5); RED CELL DISTRIBUTION WIDTH SD 45.8 fL (36.4-46.3); WHITE BLOOD COUNT 4.32 K/uL (4.8-10.8)
[2018-01-01 10:11] LABS: BLOOD UREA NITROGEN 18 mg/dl (7-18); CALCIUM 8.3 mg/dl (8.5-10.1); CARBON DIOXIDE 23 mmol/L (21-32); CREATININE 0.91 mg/dl (0.60-1.20); GLUCOSE 95 mg/dl (70-99); POTASSIUM 3.5 mmol/L (3.5-5.1); SODIUM 140 mmol/L (136-145)
== END | disposition home or self-care (01) ==
LOC: C.LABFOXAC 08:38
PROVIDERS: ATTEND Internal Medicine
DX: R00.0 Tachycardia, unspecified (principal)